=== PATIENT | female | born 1960 | race Caucasian/White ===

== ENCOUNTER 2023-04-21 10:16 | Outpatient (OUT) | payer MEDICARE, SELFPAY ==
[2023-04-21 10:43] LABS: Basophils Absolute Auto 0.1 10^3/uL (0.0-0.1); Basophils Percent Auto 0.7 % (0.2-2.0); Eosinophils Absolute Auto 0.1 10^3/uL (0.0-0.7); Hematocrit 35.8 % (36.0-48.0); Hemoglobin 10.8 g/dL (12.0-16.0); Immature Granulocytes Abs Auto 0.02 10^3/uL (0.00-0.03); Immature Granulocytes Pct Auto 0.3 % (0.0-0.5); Lymphocytes Absolute Auto 1.6 10^3/uL (1.2-3.8); Lymphocytes Percent Auto 22.3 % (20.5-60.0); Mean Corpuscular HGB Conc 30.2 g/dL (29.9-35.2); Mean Corpuscular Hemoglobin 28.1 pg (26.7-34.0); Mean Corpuscular Volume 93.2 fL (81.0-99.0); Mean Platelet Volume 10.6 fL (9.5-13.5); Monocytes Absolute Auto 0.6 10^3/uL (0.3-0.8); Monocytes Percent Auto 8.5 % (1.7-12.0); Neutrophils Absolute Auto 4.8 10^3/uL (1.4-6.5); Neutrophils Percent Auto 67.2 % (43.0-75.0); Platelet Count 268 10^3/uL (150-450); Red Blood Count 3.84 10^6/uL (4.20-5.40); White Blood Count 7.2 10^3/uL (4.0-11.0)
[2023-04-21 11:13] LABS: Anion Gap 14.4; BUN Creatinine Ratio 23.7; Calcium 9.3 mg/dL (8.5-10.1); Carbon Dioxide 24.1 mmol/L (21.0-32.0); Chloride 103 mmol/L (98-107); Estimated GFR (African America 50 (>=60); Estimated GFR (Non-African Ame 41 (>=60); Glucose 93 mg/dL (74-106); Potassium 4.5 mmol/L (3.5-5.1); Sodium 137 mmol/L (136-145); Uric Acid 7.7 mg/dL (2.6-6.0)
== END 2023-04-21 10:17 | disposition home or self-care (01) ==
LOC: LAB 10:21
PROVIDERS: PCP Internal Medicine; Visit Provider Internal Medicine
DX: Z79.899 Other long term (current) drug therapy (principal); I10 Essential (primary) hypertension; E55.9 Vitamin D deficiency, unspecified; M1A.0421 Idiopathic chronic gout, left hand, with tophus (tophi)
CPT/HCPCS: 36415; 80048; 82306; 84550; 85025

== ENCOUNTER 2023-08-04 10:08 | Outpatient (OUT) | payer MEDICARE, SELFPAY ==
--- OUTSIDE RECORDS SUMMARY | 2023-08-04 10:21 | XMS_ITS | CCD ---
Author Name Unknown Address [address] [place] [address] Organization [facility] Care Team Providers Care Resolution Analyst Name Role Phone LARRY, DR ALVES Consulting Unavailable LARRY, DR ALVES Primary Care Unavailable LARRY, DR ALVES Admitting Unavailable LARRY, DR ALVES Attending Unavailable LEVI, DR HEAVENLY Vasquez Consulting Unavailable LARRY, DR ALVES Primary Care Unavailable LARRY, DR ALVES Admitting Unavailable LARRY, DR ALVES Attending Unavailable LARRY, DR ALVES Consulting Unavailable Larry, Hilton Unavailable DO Hilton Sanchez Primary Care Provider GISSELL Palacio Emergency Provider Yovani Palacio Attending Unavailable Yovani Palacio Admitting Hilton Albarado Primary Care Unavailable MARY LOU DOUGLAS Attending Unavailable Medications Current Medications Medication Drug Class(es) Dates Sig (Normalized) Sig (Original) allopurinol 100 mg oral tablet (1 source) Xanthine Oxidase Inhibitor Start: 04-23-2023 take 1 tablet by mouth every twenty-four hours Allopurinol 100 MG 1 tablet Orally Once a day for 30 days Increase to 2 daily after 14 days Apr, Active colchicine 0.6 mg oral tablet (4 sources) Start: 04-23-2023 take 1 tablet by mouth every twenty-four hours Colchicine 0.6 MG 1 tablet Orally qd for 30 days Apr, Active Start: 09-09-2022 take 1 tablet by gómez th every twenty-four hours Colchicine 0.6 MG 1 tablet Orally daily for 30 days Aug, Active doxycycline hyclate 100 mg oral capsule (4 sources) Tetracycline-class Drug take 1 capsule by mouth every twelve hours Doxycycline Hyclate 100 MG 1 capsule Orally Twice a day for 14 days Active lisinopril 10 mg oral tablet (5 sources) Angiotensin Converting Enzyme Inhibitor Lisinopril 10 MG TAKE ONE TABLET BY MOUTH DAILY Orally Once a day for 90 days New dose for next refill Active take 1 tablet by mouth once ramón y Lisinopril 20 MG TAKE ONE TABLET BY MOUTH DAILY for 90 Active predniSONE 20 mg oral tablet (5 sources) take 1 tablet by mouth twice matthias ly Problems Problem Classification Problem Date Documented Date Episodic/Chronic Calculus of urinary tract (5 sources) Kidney stone; Translations: [Calculus of kidney] Episodic Coagulation and hemorrhagic disorders (4 sources) Thrombocytopenia, unspecified; Translations: [THROMBOCYTOPENIA UNSPECIFIED] Onset: 05-28-2021 Chronic Developmental disorders (5 sources) Mild intellectual disability; Translations: [Mild intellectual disabilities] Chronic Disorders of lipid metabolism (7 sources) Familial hypercholesterolemia ; Translations: [Pure hypercholesterolemia ] Onset: 05-04-2022 Chronic Essential hypertension (4 sources) Essential hypertension; Translations: [Essential (primary) hypertension] Chronic Gout and other crystal arthropathies (17 sources) Gouty tophus; 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, unspecified, with tophus (tophi)] Chronic Hypertension with complications and secondary hypertension (9 sources) Hypertensive chronic kidney disease with stage 1 through stage 4 chronic kidney disease, or unspecified chronic kidney disease; Translations: [Chronic kidney disease due to hypertension] Onset: 04-29-2022 Chronic Nutritional deficiencies (1 source) Vitamin D deficiency; Translations: [Vitamin D deficiency, unspecified] Chronic Other acquired deformities (5 sources) Thoracogenic scoliosis; Translations: [Thoracogenic scoliosis, thoracolumbar region] Chronic Other connective tissue disease (1 source) Other specified soft tissue disorders; Translations: [Other specified soft tissue disorders] Onset: 12-07-2022 Episodic Other ear and sense organ disorders (6 sources) Sensorineural hearing loss, bilateral; Translations: [Sensorineural hearing loss, bilateral] Chronic Other inflammatory condition of skin (5 sources) Plaque psoriasis; Translations: [Psoriasis vulgaris] Chronic Other nutritional; endocrine; and metabolic disorders (1 source) Hyperuricemia without signs of inflammatory arthritis and tophaceous disease Episodic Other screening for suspected conditions (not mental disorders or infectious disease) (1 source) Encounter for screening mammogram for malignant neoplasm of breast; Translations: [ENC SCR MAMMO MALIG NEOPLASM BREAST] Onset: 05-04-2022 Episodic Skin and subcutaneous tissue infections (6 sources) Paronychia of finger of right hand; Translations: [Cellulitis of right finger] Episodic Sprains and strains (1 source) Sprain of ankle; Translations: [Sprain of unspecified ligament of unspecified ankle, initial encounter] 12-07-2022 Episodic Unclassified (1 source) CHRN KIDNEY DISEASE STG 3 UNSP; Translations: [CHRN KIDNEY DISEASE STG 3 UNSP] Onset: 05-04-2022 Results Test Name Value Interpretation Reference Range Facil ity XR ankle LT min 3V*on 2022 XR ankle LT min 3V* [facility] [place] [address] [place] [address] XRay Report Signed Patient: Binta Eldridge MR#: [id number] 46 : 1960 Acct:[id number] Age/Sex: 62 / F ADM Date: 12/07/22 Loc: ER Room: Type: [facility] ER Attending Dr: Copies to: Yovani Palacio APRN Ordering Provider: Yovani Palacio APRN Date of Service: 12/07/22 XR/XR ankle LT min 3V*: Extremity Injury, Lower LEFT ANKLE - 3 views CLINICAL HISTORY: Left ankle pain status post sprain 2 days ago. COMPARISON: None FINDINGS: Diffuse soft tissue swelling is noted. Charcot type changes are seen involving the hindfoot. Remote injury lateral malleolus. No acute fracture is seen. XR/XR ankle LT min 3V* IMPRESSION: SOFT TISSUE SWELLING WITH CHARCOT TYPE CHANGES. NO DEFINITE ACUTE BONY PROCESS IS SEEN. Impression dictated by: Sabas Rocha Jr., D.OHaydee12/07/2022 5:45 PM Dictation Location: [place] [address] Transcribed By: [facility] 12/07/221744 Dictated By: Sabas Rocha Jr, DO 12/07/221742 Signed By: 12/07/221744 Normal [facility] CBC AUTO DIFFon 04-29-2022 BASO # 0.0 103/ul Normal 0.0-0.1 [facility] Comment on above: Performed By: #### C BC #### [facility] [address] [address] [address] Maribell Elkins Basophils/100 WBC (Bld) 0.6 % Normal 0.2-2.0 [facility] Comment on above: Performed By: #### C BC #### [facility] [address] [place] [address] Dr. Maribell Elkins EO # 0.1 103/ul Normal 0.0-0.7 [facility] Comment on above: Performed By: #### C BC #### [facility] [address] [place] [address] Dr. Maribell Elkins Eosinophils/100 WBC (Bld) 0.9 % Normal 0.9-7.0 [facility] Comment on above: Performed By: #### C BC #### [facility] [address] [place] [address] Dr. Maribell Elkins Erythrocyte distribution width (RBC) [Ratio] 12.2 % Normal 11.0-15.0 [facility] Comment on above: Performed By: #### C BC #### [facility] [address] [place] [address] Dr. Maribell Elkins Hematocrit (Bld) [Volume fraction] 42.4 % Normal 36.0-48.0 [facility] Comment on above: Performed By: #### C BC #### [facility] [address] [place] [address] Dr. Maribell Elkins Hemoglobin (Bld) [Mass/Vol] 14.0 g/dL Normal 12.0-16.0 [facility] Comment on above: Performed By: #### C BC #### [facility] [address] [place] [address] Dr. Maribell Elkins IG # 0.02 10e3/ul Normal 0.00-0.03 [facility] Comment on above: Performed By: #### C BC #### [facility] [address] [place] [address] Dr. Maribell Elkins IG % 0.3 % Normal 0.0-0.5 [facility] Comment on above: Performed By: #### C BC #### [facility] [address] [place] [address] Dr. Maribell Elkins LYMPH # 0.9 103/ul Critically low 1.2-3.8 [facility] Comment on above: Performed By: #### C BC #### [facility] [address] [place] [address] Dr. Maribell Elkins Lymphocytes/100 WBC (Bld) 13.5 % Critically low 20.5-60.0 [facility] Comment on above: Performed By: #### C BC #### [facility] [address] [place] [address] Dr. Maribell Elkins MANUAL DIFF REQ NO Normal [facility] Comment on above: Performed By: #### C BC #### [facility] [address] [place] [address] Dr. Maribell Elkins MCH (RBC) [Entitic mass] 32.0 pg Normal 26.7-34.0 [facility] Comment on above: Performed By: #### C BC #### [facility] [address] [place] [address] Dr. Maribell Elkins MCHC (RBC) [Mass/Vol] 33.0 g/dL Normal 29.9-35.2 [facility] Comment on above: Performed By: #### C BC #### [facility] [address] [place] [address] Dr. Maribell Elkins MCV (RBC) [Entitic vol] 97.0 fL Normal 81.0-99.0 [facility] Comment on above: Performed By: #### C BC #### [facility] [address] [place] [address] Dr. Maribell Elkins MONO # 0.7 103/ul Normal 0.3-0.8 [facility] Comment on above: Performed By: #### C BC #### [facility] [address] [place] [address] Dr. Maribell Elkins Monocytes/100 WBC (Bld) 10.2 % Normal 1.7-12.0 [facility] Comment on above: Performed By: #### C BC #### [facility] [address] [place] [address] Dr. Maribell Elkins NEUT # 5.1 103/ul Normal 1.4-6.5 [facility] Comment on above: Performed By: #### C BC #### [facility] [address] [place] [address] Dr. Maribell Elkins Neutrophils/100 WBC (Bld) 74.5 % Normal 43.0-75.0 [facility] Comment on above: Performed By: #### C BC #### [facility] [address] [place] [address] Dr. Maribell Elkins Platelet mean volume (Bld) [Entitic vol] 11.5 fL Normal 9.5-13.5 [facility] Comment on above: Performed By: #### C BC #### [facility] [address] [place] [address] Dr. Maribell Elkins PLT 204 103/ul Normal 150-450 [facility] Comment on above: Performed By: #### C BC #### [facility] [address] [place] [address] Dr. Maribell Elkins RBC 4.37 106/ul Normal 4.20-5.40 [facility] Comment on above: Performed By: #### C BC #### [facility] [address] [place] [address] Dr. Maribell Elkins WBC 6.9 103/ul Normal 4.0-11.0 [facility] Comment on above: Performed By: #### C BC #### [facility] [address] [place] [address] Dr. Maribell Elkins LIPID PROFILEon 04-29-2022 CHOL-HDL RATIO NORM SEE BELOW Normal [facility] Comment on above: Result Comment: 3.3 - 4.4 LOW RISK 4.4 - 7.1 AVERAGE RISK 7.1 - 11.0 MODERATE RISK >11.0 HIGH RISK Performed By: #### C MP, LIPID #### [facility] [address] [place] [address] Dr. Maribell Elkins Cholesterol [Mass/Vol] 280 mg/dL Critically high <=200 [facility] Comment on above: Performed By: #### C MP, LIPID #### [facility] [address] [place] [address] Dr. Maribell Elkins Cholesterol in HDL [Mass/Vol] 51 mg/dL Normal 40-60 [facility] Comment on above: Performed By: #### C MP, LIPID #### [facility] [address] [address] [address] Maribell Elkins Cholesterol in LDL [Mass/Vol] 160.4 mg/dL Normal [facility] Comment on above: Performed By: #### C MP, LIPID #### [facility] [address] [address] [address] Maribell Elkins Cholesterol.total/C holesterol in HDL [Mass ratio] 5.5 {ratio} Normal [facility] Comment on above: Performed By: #### C MP, LIPID #### [facility] [address] [address] [address] Maribell Elkins HDL NORMAL > or = 60 mg/dl - LOW CARDIOVASCULAR RISK <40 mg/dl - HIGH CARDIOVASCULAR RISK Normal [facility] Comment on above: Performed By: #### C MP, LIPID #### [facility] [address] [address] [address] Maribell Elkins LDL CALC NORMAL SEE BELOW Normal [facility] Comment on above: Result Comment: <100 mg/dl OPTIMAL 100 - 129 mg/dl NEAR OR ABOVE OPTIMAL 130 - 159 mg/dl BORDERLINE HIGH 160 - 189 mg/dl HIGH >190 mg/dl VERY HIGH Performed By: #### C MP, LIPID #### [facility] [address] [address] [address] Maribell Elkins Triglyceride [Mass/Vol] 343 mg/dL Critically high <=150 [facility] Comment on above: Performed By: #### C MP, LIPID #### [facility] [address] [place] [address] Dr. Maribell Elkins VLDL CALC 68.6 mg/dL Normal [facility] Comment on above: Performed By: #### C MP, LIPID #### [facility] [address] [place] [address] Dr. Maribell Elkins MG MAMM SCREEN KELLY W CADon 1 06-29-2021 MG MAMM SCREEN KELLY W CAD Patient: BINTA ELDRIDGE Exam Date: 04/29/2022 : 1960 Gender:F Ordering : DR HILTON SANCHEZ D.O. Admission #: [id number] Family : Order #: [id number] CLICK HERE TO VIEW EXAM RADIOLOGY REPORT PROCEDURE: MAMMOGRAM BILATERAL SCREENING DIGITAL WITH COMPUTER AIDED DETECTION COMPARISON: MG MAMM SCREEN 3D KELLY CAD, 04/16/2021. INDICATIONS: Screening for malignant neoplasm of breast Calculator Name NCI Breast Cancer Risk Assessment Tool 5 Year Breast Cancer Risk 1.70% Lifetime Breast Cancer Risk 7.70% Personal Breast Cancer No Personal Ovarian Cancer No Treatments None Family Cancers None LOCATION: [facility] BREAST COMPOSITION: Scattered areas fibroglandular density. FINDINGS: DIAGNOSTIC CATEGORY 1--NEGATIVE. NO CHANGE FROM COMPARISON ASSESSMENT. Limited 2D only exam. Large portions of breasts were not imaged due to inability to position the patient RIGHT BREAST: No significant suspicious finding. LEFT BREAST: No significant suspicious finding. RECOMMENDATIONS: ROUTINE MAMMOGRAM AND CLINICAL EVALUATION IN 12 MONTHS. PLEASE NOTE: A NORMAL MAMMOGRAM DOES NOT EXCLUDE THE POSSIBILITY OF BREAST CANCER. A CLINICALLY SUSPICIOUS PALPABLE LUMP SHOULD BE BIOPSIED. Dictated by: Heavenly Nelson MD on 04/29/2022 at 13:12 Approved by: Heavenly Nelson MD on 04/29/2022 at 13:13 Normal [facility] PROF 14(COMP METB)on 022 Albumin [Mass/Vol] 4.0 g/dL Normal 3.4-5.0 [facility] Comment on above: Performed By: #### C MP, LIPID #### [facility] [address] [place] [address] Dr. Maribell Elkins Albumin/Globulin [Mass ratio] 1.2 {ratio} Normal [facility] Comment on above: Performed By: #### C MP, LIPID #### [facility] [address] [place] [address] Dr. Maribell Elkins ALP [Catalytic activity/Vol] 76 U/L Normal 46-116 [facility] Comment on above: Performed By: #### C MP, LIPID #### [facility] [address] [place] [address] Dr. Maribell Elkins ALT [Catalytic activity/Vol] 37 U/L Normal 14-59 [facility] Comment on above: Performed By: #### C MP, LIPID #### [facility] [address] [address] [address] Maribell Elkins Anion gap [Moles/Vol] 9.1 mmol/L Normal [facility] Comment on above: Performed By: #### C MP, LIPID #### [facility] [address] [address] [address] Maribell Elkins AST [Catalytic activity/Vol] 20 U/L Normal 15-37 [facility] Comment on above: Performed By: #### C MP, LIPID #### [facility] [address] [address] [address] Maribell Elkins Bilirubin [Mass/Vol] 0.5 mg/dL Normal 0.2-1.0 [facility] Comment on above: Performed By: #### C MP, LIPID #### [facility] [address] [address] [address] Maribell Elkins Calcium [Mass/Vol] 9.1 mg/dL Normal 8.5-10.1 [facility] Comment on above: Performed By: #### C MP, LIPID #### [facility] [address] [address] [address] Maribell Elkins Chloride [Moles/Vol] 104 mmol/L Normal 98-107 [facility] Comment on above: Performed By: #### C MP, LIPID #### [facility] [address] [address] [address] Maribell Elkins CO2 [Moles/Vol] 27.6 mmol/L Normal 21.0-32.0 [facility] Comment on above: Performed By: #### C MP, LIPID #### [facility] [address] [place] [address] Dr. Maribell Elkins Creatinine [Mass/Vol] 1.62 mg/dL Critically high 0.55-1.02 [facility] Comment on above: Performed By: #### C MP, LIPID #### [facility] [address] [address] [address] Maribell Elkins EGFR-AF CHILEAN 39 mL/min/1.73m2 Critically low >=60 [facility] Comment on above: Performed By: #### C MP, LIPID #### [facility] [address] [address] [address] Maribell Elkins EGFR-NON AF CHILEAN 32 mL/min/1.73m2 Critically low >=60 [facility] Comment on above: Performed By: #### C MP, LIPID #### [facility] [address] [address] [address] Maribell Elkins Globulin (S) [Mass/Vol] 3.4 g/dL Normal [facility] Comment on above: Performed By: #### C MP, LIPID #### [facility] [address] [address] [address] Maribell Elkins Glucose [Mass/Vol] 108 mg/dL Critically high 74-106 [facility] Comment on above: Performed By: #### C MP, LIPID #### [facility] [address] [address] [address] Maribell Elkins Potassium [Moles/Vol] 4.7 mmol/L Normal 3.5-5.1 [facility] Comment on above: Performed By: #### C MP, LIPID #### [facility] [address] [address] [address] Maribell Elkins Protein [Mass/Vol] 7.4 g/dL Normal 6.4-8.2 [facility] Comment on above: Performed By: #### C MP, LIPID #### [facility] [address] [address] [address] Maribell Elkins Sodium [Moles/Vol] 136 mmol/L Normal 136-145 [facility] Comment on above: Performed By: #### C MP, LIPID #### [facility] [address] [address] [address] Maribell Elkins Urea nitrogen [Mass/Vol] 24.0 mg/dL Critically high 7.0-18.0 [facility] Comment on above: Performed By: #### C MP, LIPID #### [facility] [address] [address] [address] Maribell Elkins Urea nitrogen/Creatinine [Mass ratio] 14.8 mg/mg Normal [facility] Comment on above: Performed By: #### C MP, LIPID #### [facility] [address] [address] [address] Maribell Elkins CBC AUTO DIFFon 05-28-2021 BASO # 0.1 103/ul Normal 0.0-0.1 [facility] Comment on above: Performed By: #### C BC #### [facility] [address] [place] [address] Dr. Maribell Elkins Basophils/100 WBC (Bld) 0.9 % Normal 0.2-2.0 [facility] Comment on above: Performed By: #### C BC #### [facility] [address] [place] [address] Dr. Maribell Elkins EO # 0.1 103/ul Normal 0.0-0.7 [facility] Comment on above: Performed By: #### C BC #### [facility] [address] [place] [address] Dr. Maribell Elkins Eosinophils/100 WBC (Bld) 1.6 % Normal 0.9-7.0 [facility] Comment on above: Performed By: #### C BC #### [facility] [address] [place] [address] Dr. Maribell Elkins Erythrocyte distribution width (RBC) [Ratio] 12.9 % Normal 11.0-15.0 [facility] Comment on above: Performed By: #### C BC #### [facility] [address] [place] [address] Dr. Maribell Elkins Hematocrit (Bld) [Volume fraction] 41.9 % Normal 36.0-48.0 [facility] Comment on above: Performed By: #### C BC #### [facility] [address] [place] [address] Dr. Maribell Elkins Hemoglobin (Bld) [Mass/Vol] 13.7 g/dL Normal 12.0-16.0 [facility] Comment on above: Performed By: #### C BC #### [facility] [address] [place] [address] Dr. Maribell Elkins IG # 0.01 10e3/ul Normal 0.00-0.03 [facility] Comment on above: Performed By: #### C BC #### [facility] [address] [place] [address] Dr. Maribell Elkins IG % 0.2 % Normal 0.0-0.5 [facility] Comment on above: Performed By: #### C BC #### [facility] [address] [place] [address] Dr. Maribell Elkins LYMPH # 2.0 103/ul Normal 1.2-3.8 [facility] Comment on above: Performed By: #### C BC #### [facility] [address] [place] [address] Dr. Maribell Elkins Lymphocytes/100 WBC (Bld) 35.9 % Normal 20.5-60.0 [facility] Comment on above: Performed By: #### C BC #### [facility] [address] [place] [address] Dr. Maribell Elkins MANUAL DIFF REQ NO Normal [facility] Comment on above: Performed By: #### C BC #### [facility] [address] [place] [address] Dr. Maribell Elkins MCH (RBC) [Entitic mass] 31.2 pg Normal 26.7-34.0 [facility] Comment on above: Performed By: #### C BC #### [facility] [address] [place] [address] Dr. Maribell Elkins MCHC (RBC) [Mass/Vol] 32.7 g/dL Normal 29.9-35.2 [facility] Comment on above: Performed By: #### C BC #### [facility] [address] [place] [address] Dr. Maribell lEkins MCV (RBC) [Entitic vol] 95.4 fL Normal 81.0-99.0 [facility] Comment on above: Performed By: #### C BC #### [facility] [address] [place] [address] Dr. Maribell Elkins MONO # 0.6 103/ul Normal 0.3-0.8 [facility] Comment on above: Performed By: #### C BC #### [facility] [address] [place] [address] Dr. Maribell Elkins Monocytes/100 WBC (Bld) 11.0 % Normal 1.7-12.0 [facility] Comment on above: Performed By: #### C BC #### [facility] [address] [place] [address] Dr. Maribell Elkins NEUT # 2.8 103/ul Normal 1.4-6.5 [facility] Comment on above: Performed By: #### C BC #### [facility] [address] [place] [address] Dr. Maribell Elkins Neutrophils/100 WBC (Bld) 50.4 % Normal 43.0-75.0 [facility] Comment on above: Performed By: #### C BC #### [facility] [address] [place] [address] Dr. Maribell Elkins Platelet mean volume (Bld) [Entitic vol] 10.8 fL Normal 9.5-13.5 [facility] Comment on above: Performed By: #### C BC #### [facility] [address] [place] [address] Dr. Maribell Elkins PLT 187 103/ul Normal 150-450 [facility] Comment on above: Performed By: #### C BC #### [facility] [address] [place] [address] Dr. Maribell Elkins RBC 4.39 106/ul Normal 4.20-5.40 [facility] Comment on above: Performed By: #### C BC #### [facility] [address] [place] [address] Dr. Maribell Elkins WBC 5.6 103/ul Normal 4.0-11.0 [facility] Comment on above: Performed By: #### C BC #### [facility] [address] [place], [place] [id number] Dr. Maribell Elkins Vital Signs Date Time Vital Sign Value Performing Clinician Corry jeronimo 12-07-2022 17:05-0400 Body height 165.1 cm DO Hilton Sanchez Work Phone: [facility] 12-07-2022 17:05-0400 Body temperature 97.6 [degF] DO Hilton Ball Work Phone: [facility] 12-07-2022 17:05-0400 Body weight 48.98 kg DO Hilton Ball Work Phone: [facility] 12-07-2022 17:05-0400 Diastolic blood pressure 77 mm[Hg] DO Hilton Ball Work Phone: [facility] 12-07-2022 17:05-0400 Heart rate 106 /min DO Hilton Ball Work Phone: [facility] 12-07-2022 17:05-0400 Respiratory rate 16 /min DO Hilton Ball Work Phone: [facility] 12-07-2022 17:05-0400 SaO2% (BldA) [Mass fraction] 96 % DO Hilton Ball Work Phone: [facility] 12-07-2022 17:05-0400 Systolic blood pressure 120 mm[Hg] DO Hilton Ball Work Phone: [facility] Encounters Encounter Date Encounter Type Care Provider Facility Start: 06-02-2023 End: 06-02-2023 ambulatory MARY OLU DOUGLAS Not Available Start: 04-21-2023 End: 04-21-2023 ambulatory Hilton Sanchez Other [employer] Other Start: 04-21-2023 Telephone encounter [facility] Start: 12-07-2022 End: 12-07-2022 Emergency department patient visit Yovani Palacio Facility:[facility] Start: 12-07-2022 End: 12-07-2022 Emergency department patient visit DO Hilton Ball Work Phone: [facility] Work Phone: Start: 10-14-2022 End: 10-14-2022 ambulatory Hilton Sanchez Other [employer] Other Start: 10-14-2022 Telephone encounter Hilton [facility] Start: 09-10-2022 End: 09-10-2022 ambulatory Hilton Sanchez Other [employer] Other Start: 09-10-2022 [facility] encounter [facility] Start: 09-08-2022 End: 09-08-2022 ambulatory Hilton Sanchez Other [employer] Other Start: 09-08-2022 [facility]phone encounter [facility] Start: 08-10-2022 End: 08-10-2022 ambulatory Hilton Sanchez Other [employer] Other Start: 08-10-2022 Telephone encounter [facility] Start: 04-29-2022 End: 04-30-[address] HILTON SANCHEZ Facility:[facility] Start: 05-28-2021 End: 05-29-[address] HILTON SANCHEZ Facility:[facility] Procedures Date Procedure Procedure Detail Performing Clinician Start: 12-07-2022 X-ray of left ankle DO Hilton Sanchez Work Phone: Plan of Treatment Date Care Activity Detail Author Patient Education Ankle Sprain (DC) [facility] Work Phone: Patient referral [facility] Work Phone: Immunizations Immunization Date Immunization Notes Care Provider Naty ha 04-15-2022 influenza virus vaccine, split virus (incl. purified surface antigen) Hilton Larry Other [employer] Other 04-09-2021 influenza virus vaccine, split virus (incl. purified surface antigen) Hilton Sanchez Other [employer] Other 03-13-2020 influenza virus vaccine, split virus (incl. purified surface antigen) Hilton Sanchez Other [employer] Other 03-10-2018 influenza virus vaccine, split virus (incl. purified surface antigen) Hilton Larry Other [employer] Other 03-11-2017 tetanus and diphther ia toxoids, adsorbed, preservative free, for adult use (5 Lf of tetanus toxoid and 2 Lf of diphtheria toxoid) Hilton Sanchez Other [employer] Other 02-28-2016 tetanus and diphther ia toxoids, adsorbed, preservative free, for adult use (5 Lf of tetanus toxoid and 2 Lf of diphtheria toxoid) Hilton Sanchez Other [employer] Other 04-06-2014 tetanus and diphther ia toxoids, adsorbed, preservative free, for adult use (5 Lf of tetanus toxoid and 2 Lf of diphtheria toxoid) Hilton Sanchez Other [employer] Other Payers Date Payer Category Payer Self-pay 1960 Medicare [id number] 1960 Unknown [id number] 1960 Unknown [id number] 1960 Unknown [id number] Unknown [id number] Social History Date Type Detail Facility Sex Assigned At [employer] Other [facility]: [facility] Start: 1960 Sex Assigned At Female F [facility] Evaluation note 04-21-2023 Note Date & Type Note Facility 04-21-2023 Evaluation note Encounter Date Diagnosis Assessment Notes Apr, Hyperuricemia (ICD-10 - E79.0) [facility] [facility] Other Evaluation note 09-10-2022 Note Date & Type Note Facility 09-10-2022 Evaluation note Encounter Date Diagnosis Assessment Notes Aug, Cellulitis of finger of left hand (ICD-10 - L03.012) Aug, Acute idiopathic gout of left hand (ICD-10 - M10.042) [facility] [facility] Other Evaluation note 08-10-2022 Note Date & Type Note Facility 08-10-2022 Evaluation note Encounter Date Diagnosis Assessment Notes Jul, Acute idiopathic gout of right hand (ICD-10 - M10.041) [facility] [facility] Other Evaluation note Note Date & Type Note Facility Evaluation note No Information [facility] Other Evaluation note Note Date & Type Note Facility Evaluation note [facility]: History general Narrative - Reported Note Date & Type Note Facility History general Narrative - Reported Type Medical History Paronychia of finger of right melchor nd Medical History Tophaceous gout Medical History Hyperlipidemia type II Medical History Nephrolithiasis Medical History Hypertensive renal d isease, stage 1 through stage 4 or unspecified chronic kidney disease Medical History Thoracogenic scoliosis, thoracol umbar region Medical History Mild intellectual disabilities Medical History Plaque psoriasis Medical History Sensorineural hearing loss (SNHL ) of both ears [facility] Other History general Narrative - Reported Note Date & Type Note Facility History general Narrative - Reported Type Medical History Paronychia of finger of right melchor nd Medical History Tophaceous gout Medical History Hyperlipidemia type II Medical History Nephrolithiasis Medical History Hypertensive renal d isease, stage 1 through stage 4 or unspecified chronic kidney disease Medical History Thoracogenic scoliosis, thoracol umbar region Medical History Mild intellectual disabilities Medical History Plaque psoriasis Medical History Sensorineural hearing loss (SNHL ) of both ears Surgical History No know Surgical history [employer] Other Summary Purpose Family History No Family History Records FoundNo Family History Records FoundNo Family History Records Found Advance Directives No Advanced Directives Records Found Advance Directive Response Recorded Date/ Time Advance Directives Yes December 07 5:41pm Chief Complaint and Reason for Visit Chief Complaint L ankle injury Additional Source Comments INFORMATION SOURCE (unrecogn ized section and content) DATE CREATED AUTHOR 05/04/2022 [facility] DATE CREATED AUTHOR AUTHOR'S ORGANIZ ATION 12/23/2022 [facility] DATE CREATED AUTHOR AUTHOR'S ORGANIZ ATION 06/04/2023 [facility] EPIC REASON FOR VISIT (unrecogniz ed section and content) messagefingerNo Informationu pdateLab results Care Teams (unrecognized sec tion and content) Team Status: Active Member Role Status Dates Hilton Sanchez , Primary Care Provider Active Team Status: Inactive Member Role Status Dates Hilton Sanchez , Primary Care Provider Active Yovani Palacio APRN Emergency Provider Active Goals (unrecognized section and content) Goals may be documented in a n alternate section FOR RECORDS PERTAINING TO PATIENTS WHO ARE OR HAVE BEEN ENROLLED IN A CHEMICAL DEPENDENCY/SUBSTANCEABUSE PROGRAM, SOME INFORMATION MAY BE OMITTED. This clinical summary was aggregated from multiple sources. Caution should be exercised in using it in the provision of clinical care. This summary normalizes information from multiple sources, and as a consequence, information in this document may materially change the coding, format and clinical context of patient data. In addition, data may be omitted in some cases. CLINICAL DECISIONS SHOULD BE BASED ON THE PRIMARY CLINICAL RECORDS. [facility] [employer] [facility]. provides no warranty or guarantee of the accuracy or completeness of information in this document.
[2023-08-04 10:52] LABS: Basophils Absolute Auto 0.1 10^3/uL (0.0-0.1); Eosinophils Absolute Auto 0.2 10^3/uL (0.0-0.7); Eosinophils Percent Auto 2.9 % (0.9-7.0); Hematocrit 33.6 % (36.0-48.0); Hemoglobin 10.6 g/dL (12.0-16.0); Immature Granulocytes Abs Auto 0.02 10^3/uL (0.00-0.03); Immature Granulocytes Pct Auto 0.3 % (0.0-0.5); Lymphocytes Absolute Auto 1.1 10^3/uL (1.2-3.8); Mean Corpuscular HGB Conc 31.5 g/dL (29.9-35.2); Mean Corpuscular Hemoglobin 29.9 pg (26.7-34.0); Mean Corpuscular Volume 94.9 fL (81.0-99.0); Monocytes Absolute Auto 0.5 10^3/uL (0.3-0.8); Monocytes Percent Auto 5.9 % (1.7-12.0); Neutrophils Absolute Auto 5.9 10^3/uL (1.4-6.5); Neutrophils Percent Auto 75.9 % (43.0-75.0); Platelet Count 341 10^3/uL (150-450); Red Blood Count 3.54 10^6/uL (4.20-5.40); White Blood Count 7.8 10^3/uL (4.0-11.0)
[2023-08-04 11:22] LABS: Uric Acid 3.7 mg/dL (2.6-6.0)
[2023-08-04 11:25] LABS: Percent Iron Saturation 18.1 %
== END 2023-08-04 10:09 | disposition home or self-care (01) ==
LOC: LAB 10:11
PROVIDERS: PCP Internal Medicine; Visit Provider Internal Medicine
DX: D64.9 Anemia, unspecified (principal); M10.9 Gout, unspecified
CPT/HCPCS: 36415; 82607; 82728; 82746; 83540; 83550; 84550; 85025

== ENCOUNTER 2024-04-05 09:58 | Outpatient (OUT) | payer MEDICARE, SELFPAY ==
--- OUTSIDE RECORDS SUMMARY | 2024-04-05 10:04 | XMS_ITS | CCD ---
Author Organization [facility] Care Team Providers Care Director [employer]otive Name Role Phone DR HILTON SANCHEZ Consulting Unavailable LARRY, DR ALVES Primary Care Unavailable LARRY, DR ALVES Admitting Unavailable LARRY, DR ALVES Attending Unavailable LEVI, DR HEAVENLY Vasquez Consulting Unavailable LARRY, DR ALVES Primary Care Unavailable LARRY, DR ALVES Admitting Unavailable LARRY, DR ALVES Attending Unavailable LARRY, DR ALVES Consulting Unavailable Larry, Hilton Unavailable DO Hilton Sanchez Primary Care Provider GISSELL Palacio Emergency Provider Yovani Palacio Admitting Unavailable Yovani Palacio Attending Unavailable Larry, Hilton Primary Care Unavailable Larry, Hilton Admitting Unavailable Larry, Hilton Primary Care Unavailable Larry, Hilton Attending Unavailable MARY LOU DOUGLAS Attending Unavailable MARY LOU DOUGLAS Attending Unavailable MARY LOU DOUGLAS Attending Unavailable MARY LOU DOUGLAS Attending Unavailable Medications Current Medications Medication Drug Class(es) Dates Sig (Normalized) Sig (Original) allopurinol 200 mg oral tablet (3 sources) Xanthine Oxidase Inhibitor Start: 10-19-2023 take 200 mg by mouth once daily Allopurinol Active 200 MG PO Daily October 19, 2023 1:44pm Start: 10-19-2023 End: 10-19-2023 take 100 mg by mouth once daily Allopurinol Discontinu ed 100 MG PO Daily October 19, 2023 12:00am October 19, 2023 1:45pm Start: 04-23-2023 take 1 tablet by gómez th every twenty-four hours Allopurinol 100 MG 1 tablet Orally Once a day for 30 days Increase to 2 daily after 14 days Apr, Active aspirin 81 mg delayed release oral tablet (1 source) Platelet Aggregation Inhibitor, Nonsteroidal Anti-inflammatory Drug Start: 10-20-2023 take 1 tablet by mouth once daily Aspirin (Adult Aspirin Regimen) 81 mg tablet,delayed release (DR/EC) Active 81 MG PO Daily October 20, 2023 12:00am atorvastatin 80 mg oral tablet (3 sources) HMG-CoA Reductase Inhibitor Start: 10-20-2023 End: 12-21-2023 take 80 mg by mouth once daily Atorvastatin Active 80 MG PO Daily December 21, 2023 8:39am colchicine 0.6 mg oral tablet (6 sources) Start: 10-19-2023 End: 12-21-2023 take 0.6 mg by mouth once daily Colchicine Active 0.6 MG PO Daily December 21, 2023 8:39am Start: 04-23-2023 take 1 tablet by gómez th every twenty-four hours Colchicine 0.6 MG 1 tablet Orally qd for 30 days Apr, Active Start: 09-09-2022 take 1 tablet by gómez th every twenty-four hours Colchicine 0.6 MG 1 tablet Orally daily for 30 days Aug, Active doxycycline hyclate 100 mg oral capsule (5 sources) Tetracycline-class Drug Start: 10-20-2023 take 100 mg by mouth twice daily Doxycycline Hyclate Active 100 MG PO Twice daily 09 04October 20, 2023 12:00am take 1 capsule by mo [facility] every twelve hours Doxycycline Hyclate 100 MG 1 capsule Ora lly Twice a day for 14 days Active folic acid 1 mg oral tablet (3 sources) Start: 09-06-2023 End: 09-07-2023 take 1 tablet by mouth once daily Folic Acid Active 0 .ROUTE .COMPLEX September 07, 2023 4:06pm TAKE 1 TABLET BY MOUTH DAILY Start: 08-04-2023 End: 09-06-2023 take 1 mg by mouth once daily Folic Acid Discontinued 1 MG PO Daily August 04, 2023 1:00am September 06, 2023 2:08pm lisinopril 10 mg oral tablet (6 sources) Angiotensin Converting Enzyme Inhibitor Start: 10-19-2023 take 10 mg by mouth once daily Lisinopril Active 10 MG PO Daily October 19, 2023 12:00am Lisinopril 10 MG TAKE ONE TABLET BY MOUTH DAILY Orally Once a day for 90 days New dose for next refill Active take 1 tablet by mouth once ramón y Lisinopril 20 MG TAKE ONE TABLET BY MOUTH DAILY for 90 Active mupirocin 0.02 mg/mg topical ointment (1 source) RNA Synthetase Inhibitor Antibacterial Start: 10-20-2023 Mupirocin Active 1 APPLIC TOPICAL Twice daily 11 04October 20, 2023 12:00am polysaccharide iron complex 150 mg oral capsule (1 source) Start: 08-04-2023 Polysaccharide Iron Complex (Ferrex 150) 150 mg iron capsule Active 150 MG PO every other day August 04, 2023 1:00am predniSONE 20 mg oral tablet (5 sources) take 1 tablet by mouth twice daily Problems Active Problems Problem Classification Problem Date Documented Date Episodic/Chronic Calculus of urinary tract (5 sources) Kidney stone; Translations: [Calculus of kidney] Episodic Chronic ulcer of skin (3 sources) Non-pressure chronic ulcer of skin of other sites limited to breakdown of skin; Translations: [Skin ulcer] Onset: 11-03-2023 10-20-2023 Chronic Coagulation and hemorrhagic disorders (4 sources) Thrombocytopenia, unspecified; Translations: [THROMBOCYTOPENIA UNSPECIFIED] Onset: 05-28-2021 Chronic Developmental disorders (5 sources) Mild intellectual disability; Translations: [Mild intellectual disabilities] Chronic Disorders of lipid metabolism (8 sources) Familial hypercholesterolemia; Translations: [Pure hypercholesterolemia] Onset: 05-04-2022 10-20-2023 Chronic Essential hypertension (7 sources) Essential hypertension; Translations: [Essential (primary) hypertension] Onset: 11-03-2023 10-18-2023 Chronic Gout and other crystal arthropathies (17 [...] Translations: [Thoracogenic scoliosis, thoracolumbar region] Chronic Other circulatory disease (1 source) Other disorder of circulatory system; Translations: [Other disorder of circulatory system] Onset: 11-03-2023 Episodic Other connective tissue disease (1 source) H/O: gout; Translations: [Personal history of other diseases of the musculoskeletal system and connective tissue] 10-18-2023 Episodic Other connective tissue disease (1 source) Personal history of other diseases of the musculoskeletal system and connective tissue; Translations: [Personal history of other endocrine, metabolic, and immunity disorders] 03-22-2024 Episodic Other ear and sense organ disorders (6 sources) Sensorineural hearing loss, bilateral; Translations: [Sensorineural hearing loss, bilateral] Chronic Other hereditary and degenerative nervous system conditions (1 source) Impaired cognition; Translations: [Mild cognitive impairment, so stated] 10-18-2023 Chronic Other hereditary and degenerative nervous system conditions (1 source) Mild cognitive impairment, so stated; Translations: [Mild cognitive impairment, so stated] 03-22-2024 Chronic Other inflammatory condition of skin (5 sources) Plaque psoriasis; Translations: [Psoriasis vulgaris] Chronic Other nutritional; endocrine; and metabolic disorders (1 source) Hyperuricemia without signs of inflammatory arthritis and tophaceous disease Episodic Other screening for suspected conditions (not mental disorders or infectious disease) (3 sources) Encounter for screening mammogram for malignant neoplasm of breast; Translations: [Patient encounter status] Onset: 05-04-2022 03-20-2024 Episodic Peripheral and visceral atherosclerosis (4 sources) Peripheral vascular disease, unspecified; Translations: [Peripheral arterial disease] Onset: 11-03-2023 10-20-2023 Chronic Skin and subcutaneous tissue infections (6 sources) Paronychia of finger of right hand; Translations: [Cellulitis of right finger] Episodic Sprains and strains (2 sources) Sprain of ankle; Translations: [Sprain of unspecified ligament of unspecified ankle, initial encounter] 12-07-2022 Episodic Unclassified (1 source) CHRN KIDNEY DISEASE STG 3 UNSP; Translations: [CHRN KIDNEY DISEASE STG 3 UNSP] Onset: 05-04-2022 Past or Other Problems Problem Classification Problem Date Documented Da te Episodic/Chronic Other connective tissue disease (1 source) Other specified soft tissue disorders; Translations: [Other specified soft tissue disorders] Onset: 12-07-2022 Episodic Results Test Name Value Interpretation Reference Range Facil ity US arterial pvr rest Monty US arterial pvr rest [facility] [place] [address] Ultrasound Report Signed Patient: Binta Eldridge MR#: [id number] 46 : 1960 Acct:[id number] Age/Sex: 63 / F ADM Date: 11/03/23 Loc: UL Room: Type: [facility] CLI Attending Dr: Hilton Sanchez DO Ordering Provider: Hilton Sanchez DO Date of Service: 11/03/23 US/US arterial pvr rest LE: I73.9 - Peripheral vascular disease, unspecified Copies to: Hilton Sanchez DO LOWER EXTREMITY SEGMENTAL ARTERIAL DOPSCAN (PVR) INDICATION: Peripheral arterial occlusive disease with left foot pain PROCEDURE: Right arm blood pressure is 108 , left is 110 . Pressures throughout the right leg are 139 at the low thigh, 131 at the calf, 118 at the ankle using the posterior tibial artery, and 123 at the ankle using the dorsalis pedis artery with ankle-brachial index of 1.07 1.12 . Pressures throughout the left leg are 149 at the low thigh, 149 at the calf and 154 at the ankle using the posterior tibial artery, and 155 at the ankle using the dorsalis pedis artery with ankle-brachial index of 1.40 1.41 . Wave forms by plethysmography are normal. US/US arterial pvr rest LE IMPRESSION: NO HEMODYNAMICALLY SIGNIFICANT PERIPHERAL VASCULAR OCCLUSIVE DISEASE AT REST IN EITHER LOWER EXTREMITY. Impression dictated by: Paul Antoine M.D.11/04/2023 3:11 PM Dictation Location: [place] [address] Tech: Magda Whitley Transcribed By: SLADE 11/04/23 1511 Dictated By: Paul Antoine MD 11/04/23 1509 Signed By: 11/04/23 1511 Normal [facility] Complete Blood Count Auto Di ffon 11-03-2023 Basophils (Bld) [#/Vol] 0.1 10*3/uL Normal 0.0-0.2 [facility] Comment on above: Result Comment: PERF ORMED BY: [place] [address] PATHOLOGIST TECHNICAL ILLUSTRATOR JENNIFER MURILLO M.D. Performed By: #### C MP, CBC #### [address] Basophils/100 WBC (Bld) 0.9 % Normal . [facility] Comment on above: Performed By: #### C MP, CBC #### [place] [address] [place] Eosinophils (Bld) [#/Vol] 0.1 10*3/uL Normal 0.0-0.45 [facility] Comment on above: Performed By: #### C MP, CBC #### [place] [address] [place] Eosinophils/100 WBC (Bld) 1.3 % Normal . [facility] Comment on above: Performed By: #### C MP, CBC #### [address] Erythrocyte distribution width (RBC) [Ratio] 15.3 % Normal 11.9-15.3 [facility] Comment on above: Performed By: #### C MP, CBC #### [address] Hematocrit (Bld) [Volume fraction] 36.6 % Normal 34.0-46.4 [facility] Comment on above: Performed By: #### C MP, CBC #### [address] Hemoglobin (Bld) [Mass/Vol] 11.9 g/dL Normal 11.8-15.4 [facility] Comment on above: Performed By: #### C MP, CBC #### [place] [address] [place] Lymphocytes (Bld) [#/Vol] 0.9 10*3/uL Low 1.00-4.8 [facility] Comment on above: Performed By: #### C MP, CBC #### [place] [address] [place] Lymphocytes/100 WBC (Bld) 15.3 % Normal . [facility] Comment on above: Performed By: #### C MP, CBC #### [address] MCH (RBC) [Entitic mass] 30.9 pg Normal 24.7-34.3 [facility] Comment on above: Performed By: #### C MP, CBC #### [address] MCV (RBC) [Entitic vol] 95.2 fL Normal 80-100 [facility] Comment on above: Performed By: #### C MP, CBC #### [address] Mean Corpuscular HGB Conc 32.5 g/dL Normal 32.0-35.0 [facility] Comment on above: Performed By: #### C MP, CBC #### [address] Monocytes (Bld) [#/Vol] 0.5 10*3/uL Normal 0.0-0.8 [facility] Comment on above: Performed By: #### C MP, CBC #### [address] Monocytes/100 WBC (Bld) 7.9 % Normal . [facility] Comment on above: Performed By: #### C MP, CBC #### [address] Neutrophils (Bld) [#/Vol] 4.5 10*3/uL Normal 1.8-7.7 [facility] Comment on above: Performed By: #### C MP, CBC #### [address] Neutrophils/100 WBC (Bld) 74.6 % Normal . [facility] Comment on above: Performed By: #### C MP, CBC #### [address] NRBC% 0.0 /100{WBC} Normal 0-0.5 [facility] Comment on above: Performed By: #### C MP, CBC #### [address] Platelet mean volume (Bld) [Entitic vol] 9.5 fL Normal 6.3-10.7 [facility] Comment on above: Performed By: #### C MP, CBC #### [address] Platelets (Bld) [#/Vol] 238 10*3/uL Normal 150-450 [facility] Comment on above: Performed By: #### C MP, CBC #### [address] RBC (Bld) [#/Vol] 3.84 10*6/uL Normal 3.60-5.00 [facility] Comment on above: Performed By: #### C MP, CBC #### [address] WBC (Bld) [#/Vol] 6.0 10*3/uL Normal 3.8-11.6 [facility] Comment on above: Performed By: #### C MP, CBC #### [address] Comprehensive Metabolic Pane matty 11-03-2023 Albumin [Mass/Vol] 4.4 g/dL Normal 3.5-5.7 [facility] Comment on above: Performed By: #### C MP, CBC #### [address] Albumin/Globulin [Mass ratio] 1.6 {ratio} Normal [facility] Comment on above: Performed By: #### C MP, CBC #### [address] ALP [Catalytic activity/Vol] 133 U/L High 34-104 [facility] Comment on above: Result Comment: PERF ORMED BY: [place] [address] PATHOLOGIST TECHNICAL ILLUSTRATOR JENNIFER MURILLO M.D. Performed By: #### C MP, CBC #### [address] ALT [Catalytic activity/Vol] 21 U/L Normal 7-52 [facility] Comment on above: Performed By: #### C MP, CBC #### [address] Anion gap [Moles/Vol] 4.8 mmol/L Low 6.0-15.0 [facility] Comment on above: Performed By: #### C MP, CBC #### [address] AST [Catalytic activity/Vol] 27 U/L Normal 13-39 [facility] Comment on above: Performed By: #### C MP, CBC #### [address] Bilirubin [Mass/Vol] 0.4 mg/dL Normal 0.3-1.0 [facility] Comment on above: Performed By: #### C MP, CBC #### [address] Calcium [Mass/Vol] 10.0 mg/dL Normal 8.6-10.3 [facility] Comment on above: Performed By: #### C MP, CBC #### [address] Chloride [Moles/Vol] 109 mmol/L High 98-107 [facility] Comment on above: Performed By: #### C MP, CBC #### [address] CO2 [Moles/Vol] 26.9 mmol/L Normal 21.0-31.0 [facility] Comment on above: Performed By: #### C MP, CBC #### [address] Creatinine [Mass/Vol] 1.36 mg/dL High 0.60-1.20 [facility] Comment on above: Performed By: #### C MP, CBC #### [place] [address] [place] GFR/1.73 sq M.predicted MDRD (S/P/Bld) [Vol rate/Area] 43.498 mL/min/{1.73_m2} Normal [facility] Comment on above: Performed By: #### C MP, CBC #### [address] Globulin (S) [Mass/Vol] 2.8 g/dL Normal [facility] Comment on above: Performed By: #### C MP, CBC #### [address] Glucose [Mass/Vol] 97 mg/dL Normal 70-100 [facility] Comment on above: Result Comment: [place] Glucose Reference Range is dependent on time and content of last meal. Glucose of more than 200 mg/dL in a nonstressed, ambulatory subject supports the diagnosis of Diabetes Mellitus. ADA recommended reference range Performed By: #### C MP, CBC #### [address] Potassium [Moles/Vol] 4.7 mmol/L Normal 3.5-5.1 [facility] Comment on above: Performed By: #### C MP, CBC #### [address] Protein [Mass/Vol] 7.2 g/dL Normal 6.4-8.9 [facility] Comment on above: Performed By: #### C MP, CBC #### [address] Sodium [Moles/Vol] 136 mmol/L Normal 136-145 [facility] Comment on above: Performed By: #### C MP, CBC #### [address] Urea nitrogen [Mass/Vol] 35 mg/dL High 7-25 [facility] Comment on above: Performed By: #### C MP, CBC #### [address] XR ankle LT min 3V*on 2022 XR ankle LT min 3V* [facility] Main [place] [address] [place] [address] XRay Report Signed Patient: Binta Eldridge MR#: [id number] 46 : 1960 Acct:[id number] Age/Sex: 62 / F ADM Date: 12/07/22 Loc: ER Room: Type: [facility] ER Attending Dr: Copies to: Yovani Palacio [...] SEEN. Impression dictated by: Sabas Rocha Jr., CheloOHaydee12/07/2022 5:45 PM Dictation Location: [place] [address] Transcribed By: [facility] 12/07/221744 Dictated By: Sabas Rocha Jr, DO 12/07/221742 Signed By: 12/07/221744 Normal [facility] CBC AUTO DIFFon 04-29-2022 BASO # 0.0 103/ul Normal 0.0-0.1 [facility] Comment on above: Performed By: #### C BC #### [facility] [address] [place] [address] Dr. Maribell Elkins Basophils/100 WBC (Bld) 0.6 % Normal 0.2-2.0 [facility] Comment on above: Performed By: #### C BC #### [facility] [address] [place] [address] [address] Maribell Elkins EO # 0.1 103/ul Normal 0.0-0.7 [facility] Comment on above: Performed By: #### C BC #### [facility] [address] [address] [address] Maribell Elkins Eosinophils/100 WBC (Bld) 0.9 % Normal 0.9-7.0 [facility] Comment on above: Performed By: #### C BC #### [facility] [address] [address] [address] Maribell Elkins Erythrocyte distribution width (RBC) [Ratio] 12.2 % Normal 11.0-15.0 [facility] Comment on above: Performed By: #### C BC #### [facility] [address] [place] [address] Dr. Maribell Elkins Hematocrit (Bld) [Volume fraction] 42.4 % Normal 36.0-48.0 [facility] Comment on above: Performed By: #### C BC #### [facility] [address] [place] [address] Dr. Maribell Elkins Hemoglobin (Bld) [Mass/Vol] 14.0 g/dL Normal 12.0-16.0 [facility] Comment on above: Performed By: #### C BC #### [facility] [address] [place] [address] Dr. Maribell Elkins IG # 0.02 10e3/ul Normal 0.00-0.03 [facility] Comment on above: Performed By: #### C BC #### [facility] [address] [place] [address] Dr. Maribell Elkins IG % 0.3 % Normal 0.0-0.5 [facility] Comment on above: Performed By: #### C BC #### [facility] [address] [place] [address] Dr. Maribell Elkins LYMPH # 0.9 103/ul Critically low 1.2-3.8 [facility] Comment on above: Performed By: #### C BC #### [facility] [address] [place] [address] Dr. Maribell Elkins Lymphocytes/100 WBC (Bld) 13.5 % Critically low 20.5-60.0 [facility] Comment on above: Performed By: #### C BC #### [facility] [address] [place] [address] Dr. Maribell Elkins MANUAL DIFF REQ NO Normal [facility] Comment on above: Performed By: #### C BC #### [facility] [address] [place] [address] Dr. Maribell Elkins MCH (RBC) [Entitic mass] 32.0 pg Normal 26.7-34.0 [facility] Comment on above: Performed By: #### C BC #### [facility] [address] [place] [address] Dr. Maribell Elkins MCHC (RBC) [Mass/Vol] 33.0 g/dL Normal 29.9-35.2 [facility] Comment on above: Performed By: #### C BC #### [facility] [address] [place] [address] Dr. Maribell Elkins MCV (RBC) [Entitic vol] 97.0 fL Normal 81.0-99.0 [facility] Comment on above: Performed By: #### C BC #### [facility] [address] [place] [address] Dr. Maribell Elkins MONO # 0.7 103/ul Normal 0.3-0.8 [facility] Comment on above: Performed By: #### C BC #### [facility] [address] [place] [address] Dr. Maribell Elkins Monocytes/100 WBC (Bld) 10.2 % Normal 1.7-12.0 [facility] Comment on above: Performed By: #### C BC #### [facility] [address] [place] [address] Dr. Maribell Elkins NEUT # 5.1 103/ul Normal 1.4-6.5 [facility] Comment on above: Performed By: #### C BC #### [facility] [address] [place] [address] Dr. Maribell Elkins Neutrophils/100 WBC (Bld) 74.5 % Normal 43.0-75.0 [facility] Comment on above: Performed By: #### C BC #### [facility] [address] [place] [address] Dr. Maribell Elkins Platelet mean volume (Bld) [Entitic vol] 11.5 fL Normal 9.5-13.5 [facility] Comment on above: Performed By: #### C BC #### [facility] [address] [place] [address] Dr. Maribell Elkins PLT 204 103/ul Normal 150-450 [facility] Comment on above: Performed By: #### C BC #### [facility] [address] [address] [address] Maribell Elkins RBC 4.37 106/ul Normal 4.20-5.40 [facility] Comment on above: Performed By: #### C BC #### [facility] [address] [place] [address] [address] Maribell Elkins WBC 6.9 103/ul Normal 4.0-11.0 [facility] Comment on above: Performed By: #### C BC #### [facility] [address] [address] [address] Maribell Elkins LIPID PROFILEon 04-29-2022 CHOL-HDL RATIO NORM SEE BELOW Normal [facility] Comment on above: Result Comment: 3.3 - 4.4 LOW RISK 4.4 - 7.1 AVERAGE RISK 7.1 - 11.0 MODERATE RISK >11.0 HIGH RISK Performed By: #### C MP, LIPID #### [facility] [address] [place] [address] Dr. Maribell Elkins Cholesterol [Mass/Vol] 280 mg/dL Critically high <=200 [facility] Comment on above: Performed By: #### C MP, LIPID #### [facility] [address] [place] [address] Dr. Maribell Elkins Cholesterol in HDL [Mass/Vol] 51 mg/dL Normal 40-60 [facility] Comment on above: Performed By: #### C MP, LIPID #### [facility] [address] [place] [address] Dr. Maribell Elkins Cholesterol in LDL [Mass/Vol] 160.4 mg/dL Normal [facility] Comment on above: Performed By: #### C MP, LIPID #### [facility] [address] [place] [address] Dr. Maribell Elkins Cholesterol.total/C holesterol in HDL [Mass ratio] 5.5 {ratio} Normal [facility] Comment on above: Performed By: #### C MP, LIPID #### [facility] [address] [place] [address] [address] Maribell Elkins HDL NORMAL > or = 60 mg/dl - LO W CARDIOVASCULAR RISK <40 mg/dl - HIGH CARDIOVASCULAR RISK Normal [facility] Comment on above: Performed By: #### C MP, LIPID #### [facility] [address] [place], [place] [address] Dr. Maribell Elkins LDL CALC NORMAL SEE BELOW Normal [facility] Comment on above: Result Comment: <100 mg/dl OPTIMAL 100 - 129 mg/dl NEAR OR ABOVE OPTIMAL 130 - 159 mg/dl BORDERLINE HIGH 160 - 189 mg/dl HIGH >190 mg/dl VERY HIGH Performed By: #### C MP, LIPID #### [facility] [address] [place] [address] [address] Maribell Elkins Triglyceride [Mass/Vol] 343 mg/dL Critically high <=150 [facility] Comment on above: Performed By: #### C MP, LIPID #### [facility] [address] [address] [address] Maribell Elkins VLDL CALC 68.6 mg/dL Normal [facility] Comment on above: Performed By: #### C MP, LIPID #### [facility] [address] [address] [address] Maribell Elkins MG MAMM SCREEN KELLY W CADon 1 06-29-2021 MG MAMM SCREEN KELLY W CAD Patient: BINTA ELDRIDGE Exam Date: 04/29/2022 : 1960 Gender:F Ordering : DR HILTON SANCHEZ D.O. Admission #: [id number] Family : Order #: [id number] CLICK HERE TO VIEW EXAM RADIOLOGY REPORT [...] Treatments None Family Cancers None LOCATION: [facility] BREAST COMPOSITION: Scattered areas fibroglandular density. FINDINGS: [...] Nelson MD on 04/29/2022 at 13:13 Normal [facility] PROF 14(COMP METB)on 022 Albumin [Mass/Vol] 4.0 g/dL Normal 3.4-5.0 [facility] Comment on above: Performed By: #### C MP, LIPID #### [facility] [address] [place] [address] Dr. Maribell Elkins Albumin/Globulin [Mass ratio] 1.2 {ratio} Normal [facility] Comment on above: Performed By: #### C MP, LIPID #### [facility] [address] [place] [address] Dr. Maribell Elkins ALP [Catalytic activity/Vol] 76 U/L Normal 46-116 [facility] Comment on above: Performed By: #### C MP, LIPID #### [facility] [address] [place] [address] Dr. Maribell Elkins ALT [Catalytic activity/Vol] 37 U/L Normal 14-59 [facility] Comment on above: Performed By: #### C MP, LIPID #### [facility] [address] [place] [address] Dr. Maribell Elkins Anion gap [Moles/Vol] 9.1 mmol/L Normal [facility] Comment on above: Performed By: #### C MP, LIPID #### [facility] [address] [place] [address] Dr. Maribell Elkins AST [Catalytic activity/Vol] 20 U/L Normal 15-37 [facility] Comment on above: Performed By: #### C MP, LIPID #### [facility] [address] [place] [address] Dr. Maribell Elkins Bilirubin [Mass/Vol] 0.5 mg/dL Normal 0.2-1.0 [facility] Comment on above: Performed By: #### C MP, LIPID #### [facility] [address] [address] [address] Maribell Elkins Calcium [Mass/Vol] 9.1 mg/dL Normal 8.5-10.1 [facility] Comment on above: Performed By: #### C MP, LIPID #### [facility] [address] [address] [address] Maribell Elkins Chloride [Moles/Vol] 104 mmol/L Normal 98-107 [facility] Comment on above: Performed By: #### C MP, LIPID #### [facility] [address] [address] [address] Maribell Elkins CO2 [Moles/Vol] 27.6 mmol/L Normal 21.0-32.0 [facility] Comment on above: Performed By: #### C MP, LIPID #### [facility] [address] [place] [address] Dr. Maribell Elkins Creatinine [Mass/Vol] 1.62 mg/dL Critically high 0.55-1.02 [facility] Comment on above: Performed By: #### C MP, LIPID #### [facility] [address] [place] [address] Dr. Maribell Elkins EGFR-AF SYRIAN 39 mL/min/1.73m2 Critically low >=60 [facility] Comment on above: Performed By: #### C MP, LIPID #### [facility] [address] [place] [address] Dr. Maribell Elkins EGFR-NON AF SYRIAN 32 mL/min/1.73m2 Critically low >=60 [facility] Comment on above: Performed By: #### C MP, LIPID #### [facility] [address] [place] [address] Dr. Maribell Elkins Globulin (S) [Mass/Vol] 3.4 g/dL Normal [facility] Comment on above: Performed By: #### C MP, LIPID #### [facility] [address] [place] [address] Dr. Maribell Elkins Glucose [Mass/Vol] 108 mg/dL Critically high 74-106 [facility] Comment on above: Performed By: #### C MP, LIPID #### [facility] [address] [place] [address] Dr. Maribell Elkins Potassium [Moles/Vol] 4.7 mmol/L Normal 3.5-5.1 [facility] Comment on above: Performed By: #### C MP, LIPID #### [facility] [address] [place] [address] Dr. Maribell Elkins Protein [Mass/Vol] 7.4 g/dL Normal 6.4-8.2 [facility] Comment on above: Performed By: #### C MP, LIPID #### [facility] [address] [place] [address] Dr. Maribell Elkins Sodium [Moles/Vol] 136 mmol/L Normal 136-145 [facility] Comment on above: Performed By: #### C MP, LIPID #### [facility] [address] [place] [address] Dr. Maribell Elkins Urea nitrogen [Mass/Vol] 24.0 mg/dL Critically high 7.0-18.0 [facility] Comment on above: Performed By: #### C MP, LIPID #### [facility] [address] [place] [address] Dr. Maribell Elkins Urea nitrogen/Creatinine [Mass ratio] 14.8 mg/mg Normal [facility] Comment on above: Performed By: #### C MP, LIPID #### [facility] [address] [place] [address] Dr. Maribell Elkins CBC AUTO DIFFon 05-28-2021 BASO # 0.1 103/ul Normal 0.0-0.1 [facility] Comment on above: Performed By: #### C BC #### [facility] [address] [place] [address] Dr. Maribell Elkins Basophils/100 WBC (Bld) 0.9 % Normal 0.2-2.0 [facility] Comment on above: Performed By: #### C BC #### [facility] [address] [place] [address] Dr. Maribell Elkins EO # 0.1 103/ul Normal 0.0-0.7 [facility] Comment on above: Performed By: #### C BC #### [facility] [address] [place] [address] Dr. Maribell Elkins Eosinophils/100 WBC (Bld) 1.6 % Normal 0.9-7.0 [facility] Comment on above: Performed By: #### C BC #### [facility] [address] [place] [address] Dr. Maribell Elkins Erythrocyte distribution width (RBC) [Ratio] 12.9 % Normal 11.0-15.0 [facility] Comment on above: Performed By: #### C BC #### [facility] [address] [place] [address] Dr. Maribell Elkins Hematocrit (Bld) [Volume fraction] 41.9 % Normal 36.0-48.0 [facility] Comment on above: Performed By: #### C BC #### [facility] [address] [place] [address] Dr. Maribell Elkins Hemoglobin (Bld) [Mass/Vol] 13.7 g/dL Normal 12.0-16.0 [facility] Comment on above: Performed By: #### C BC #### [facility] [address] [place] [address] Dr. Maribell Elkins IG # 0.01 10e3/ul Normal 0.00-0.03 [facility] Comment on above: Performed By: #### C BC #### [facility] [address] [place] [address] Dr. Maribell Elkins IG % 0.2 % Normal 0.0-0.5 [facility] Comment on above: Performed By: #### C BC #### [facility] [address] [place] [address] Dr. Maribell Elkins LYMPH # 2.0 103/ul Normal 1.2-3.8 [facility] Comment on above: Performed By: #### C BC #### [facility] [address] [place] [address] Dr. Maribell Elkins Lymphocytes/100 WBC (Bld) 35.9 % Normal 20.5-60.0 [facility] Comment on above: Performed By: #### C BC #### [facility] [address] [place] [address] Dr. Maribell Elkins MANUAL DIFF REQ NO Normal [facility] Comment on above: Performed By: #### C BC #### [facility] [address] [place] [address] Dr. Maribell Elkins MCH (RBC) [Entitic mass] 31.2 pg Normal 26.7-34.0 [facility] Comment on above: Performed By: #### C BC #### [facility] [address] [place] [address] Dr. Maribell Elkins MCHC (RBC) [Mass/Vol] 32.7 g/dL Normal 29.9-35.2 [facility] Comment on above: Performed By: #### C BC #### [facility] [address] [place] [address] Dr. Maribell Elkins MCV (RBC) [Entitic vol] 95.4 fL Normal 81.0-99.0 [facility] Comment on above: Performed By: #### C BC #### [facility] [address] [place] [address] Dr. Maribell Elkins MONO # 0.6 103/ul Normal 0.3-0.8 [facility] Comment on above: Performed By: #### C BC #### [facility] [address] [place] [address] Dr. Maribell Elkins Monocytes/100 WBC (Bld) 11.0 % Normal 1.7-12.0 [facility] Comment on above: Performed By: #### C BC #### [facility] [address] [place] [address] Dr. Maribell Elkins NEUT # 2.8 103/ul Normal 1.4-6.5 [facility] Comment on above: Performed By: #### C BC #### [facility] [address] [place] [address] Dr. Maribell Elkins Neutrophils/100 WBC (Bld) 50.4 % Normal 43.0-75.0 [facility] Comment on above: Performed By: #### C BC #### [facility] [address] [address] [address] Maribell Elkins Platelet mean volume (Bld) [Entitic vol] 10.8 fL Normal 9.5-13.5 [facility] Comment on above: Performed By: #### C BC #### [facility] [address] [address] [address] Maribell Elkins PLT 187 103/ul Normal 150-450 [facility] Comment on above: Performed By: #### C BC #### [facility] [address] [address] [address] Maribell Elkins RBC 4.39 106/ul Normal 4.20-5.40 [facility] Comment on above: Performed By: #### C BC #### [facility] [address] [address] [address] Maribell Elkins WBC 5.6 103/ul Normal 4.0-11.0 [facility] Comment on above: Performed By: #### C BC #### [facility] [address] [address] [address] Maribell Elkins Vital Signs Date Time Vital Sign Value Performing Clinician Anati lity 03-22-2024 [id number] Body height 132.08 cm [facility] 03-22-2024 13:33-0400 Body mass index (BMI) [Ratio] 24.5 kg/m2 [facility] 03-22-2024 13:33-0400 Body weight 42.75 kg [facility] 03-22-2024 13:33-0400 Diastolic blood pressure 75 mm[Hg] [facility] 03-22-2024 13:33-0400 Heart rate 92 /min [facility] 03-22-2024 13:33-0400 Respiratory rate 16 /min [facility] 03-22-2024 13:33-0400 Systolic blood pressure 123 mm[Hg] [facility] 12-07-2022 17:05-0400 Body height 165.1 cm DO Hilton Sanchez Work Phone: [facility] 12-07-2022 17:05-0400 Body temperature 97.6 [degF] DO Hilton Sanchez Work Phone: [facility] 12-07-2022 17:05-0400 Body weight 48.98 kg DO Hilton Sanchez Work Phone: [facility] 12-07-2022 17:05-0400 Diastolic blood pressure 77 mm[Hg] DO Hilton Sanchez Work Phone: [facility] 12-07-2022 17:05-0400 Heart rate 106 /min DO Hilton Sanchez Work Phone: [facility] 12-07-2022 17:05-0400 Respiratory rate 16 /min DO Hilton Sanchez Work Phone: [facility] 12-07-2022 17:05-0400 SaO2% (BldA) [Mass fraction] 96 % DO Hilton Sanchez Work Phone: [facility] 12-07-2022 17:05-0400 Systolic blood pressure 120 mm[Hg] DO Hilton Sanchez Work Phone: [facility] Encounters Encounter Date Encounter Type Care Provider Facility Start: 03-22-2024 End: 03-22-2024 ambulatory [facility] Work Phone: Start: 03-22-2024 End: 03-22-2024 Patient encounter procedure [facility] Physician [facility] Work Phone: Start: 03-20-2024 Patient encounter procedure [facility] Start: 01-05-2024 End: 01-05-2024 ambulatory MARY LOU DOUGLAS Not Available Start: 11-03-2023 End: 11-03-2023 ambulatory Hilton Sanchez Facility:[facility] Start: 10-27-2023 End: 10-27-2023 ambulatory MARY LOU DOUGLAS Not Available Start: 08-18-2023 End: 08-18-2023 ambulatory MARY LOU DOUGLAS Not Available Start: 06-02-2023 End: 06-02-2023 ambulatory MARY LOU DOUGLAS Not Available Start: 04-21-2023 End: 04-21-2023 ambulatory Hilton Sanchez Other [facility] Other Start: 04-21-2023 Telephone encounter Hilton Sanchez [facility] Start: 12-07-2022 End: 12-07-2022 Emergency department patient visit Yovani Palacio Facility:[facility] Start: 12-07-2022 End: 12-07-2022 Emergency department patient visit DO Hilton Sanchez Work Phone: [facility] Work Phone: Start: 10-14-2022 End: 10-14-2022 ambulatory Hilton Sanchez Other [facility] Other Start: 10-14-2022 Telephone encounter Hilton Sanchez [facility] Start: 09-10-2022 End: 09-10-2022 ambulatory Hilton Sanchez Other [facility] Other Start: 09-10-2022 Telephone encounter Hilton Sanchez [facility] Start: 09-08-2022 End: 09-08-2022 ambulatory Hilton Sanchez Other [facility] Other Start: 09-08-2022 Telephone encounter Hilton Sanchez [facility] Start: 08-10-2022 End: 08-10-2022 ambulatory Hilton Sanchez Other [facility] Other Start: 08-10-2022 Telephone encounter Hilton Larry [facility] Start: 04-29-2022 End: 04-30-[address] HILTON SANCHEZ Facility:[facility] Start: 05-28-2021 End: 05-29-[address] HILTON SANCHEZ Facility:[facility] Procedures Date Procedure Procedure Detail Performing Clinician Start: 12-07-2022 X-ray of left ankle DO Hilton Ball Work Phone: Plan of Treatment Date Care Activity Detail Author Patient Education Ankle Sprain (DC) [facility] Work Phone: Patient referral [facility] Work Phone: Immunizations Immunization Date Immunization Notes Care Provider Naty ha 04-15-2022 influenza virus vaccine, split virus (incl. purified surface antigen) Hilton Sanchez Other [employer] Other 04-15-2022 influenza virus vaccine, unspecified formulation [facility] 04-09-2021 influenza virus vaccine, split virus (incl. purified surface antigen) Hilton Sanchez Other [employer] Other 04-09-2021 influenza virus vaccine, unspecified formulation [facility] 03-13-2020 influenza virus vaccine, split virus (incl. purified surface antigen) Hilton Sanchez Other [employer] Other 03-13-2020 influenza virus vaccine, unspecified formulation [facility] 03-10-2018 influenza virus vaccine, split virus (incl. purified surface antigen) Hilton Sanchze Other [employer] Other 03-10-2018 influenza virus vaccine, unspecified formulation [facility] 03-11-2017 tetanus and diphther ia toxoids, adsorbed, preservative free, for adult use (5 Lf of tetanus toxoid and 2 Lf of diphtheria toxoid) Hilton Sanchez Other [facility] 02-28-2016 tetanus and diphther ia toxoids, adsorbed, preservative free, for adult use (5 Lf of tetanus toxoid and 2 Lf of diphtheria toxoid) Hilotn Sanchez Other [facility] 04-06-2014 tetanus and diphther ia toxoids, adsorbed, preservative free, for adult use (5 Lf of tetanus toxoid and 2 Lf of diphtheria toxoid) Hilton Sanchez Other [facility] Payers Date Payer Category Payer Unknown [id number] 2023 Medicare [id number] 2022 Self-pay 1960 Medicare [id number] 1960 Unknown [id number] 2.16.84 [id number] 1960 Unknown [id number] 2.16.84 [id number] 1960 Unknown [id number] 2.16.84 [id number] 1960 Unknown [id number] 2.16.84 [id number] 1960 Unknown [id number] 2.16.84 [id number] 1960 Unknown [id number] [id number] Unknown [id number] 2.16.8 [id number] Unknown [id number] 2.16.8 [id number] Social History Date Type Detail Facility Sex Assigned At [facility] [employer] [facility] Other Start: 12-07-2022 End: 10-20-2023 Tobacco smoking status NHIS Never smoked tobacco (finding) [facility] Start: 1960 Sex Assigned At Female [facility] Evaluation note 04-21-2023 Note Date & Type Note Facility 04-21-2023 Evaluation note Encounter Date Diagnosis Assessment Notes Apr, Hyperuricemia (ICD-10 - E79.0) [facility] [employer] Other Evaluation note 09-10-2022 Note Date & Type Note Facility 09-10-2022 Evaluation note Encounter Date Diagnosis Assessment Notes Aug, Cellulitis of finger of left hand (ICD-10 - L03.012) Aug, Acute idiopathic gout of left hand (ICD-10 - M10.042) [facility] [employer] Other Evaluation note 08-10-2022 Note Date & Type Note Facility 08-10-2022 Evaluation note Encounter Date Diagnosis Assessment Notes Jul, Acute idiopathic gout of right hand (ICD-10 - M10.041) [employer] Other Evaluation note Note Date & Type Note Facility Evaluation note No Information [employer] Other Evaluation note Note Date & Type Note Facility Evaluation note No assessment information availa ble [facility] Work Phone: Evaluation note Note Date & Type Note Facility Evaluation note Diagnosis Onset Date Hx of gout acute Hypertension acute MCI (mild cognitive impairment) acute Medicare annual wellness visit, subsequent acute Peripheral artery disease ac [place] Scalp ulceration acute Screening mammogram for breast cancer acute [facility] Work Phone: History general Narrative - Reported [...] hearing loss (SNHL ) of both ears [employer] Other History general Narrative - Reported Note [...] ears Surgical History No know Surgical history [facility] Other Summary Purpose Family History No Family History Records FoundNo Family History Records FoundNo Family History Records Found Advance Directives Advance Directive Response Recorded Date/ Time Advance Directives Yes December 07 5:41pm Chief Complaint and Reason for Visit Chief Complaint L ankle injury Chief Complaint 5 month follow up Reason for Visit Hx of gout Hypertension MCI (mild cognitive impairment) Medicare annual wellness visit, subsequent Peripheral artery disease Scalp ulceration Screening mammogram for breast cancer Additional Source Comments INFORMATION SOURCE (unrecogn ized section and content) DATE CREATED AUTHOR 05/04/2022 [facility] DATE CREATED AUTHOR AUTHOR'S ORGANIZ ATION 11/05/2023 [facility] DATE CREATED AUTHOR AUTHOR'S ORGANIZ ATION 01/09/2024 [facility] EPIC REASON FOR VISIT (unrecogniz ed section and content) messagefingerNo Informationu pdateLab results Care Teams (unrecognized sec tion and content) Team Status: Active Member Role Status Dates Hilton Sanchez , Primary Care Provider Active Team Status: Inactive Member Role Status Dates Hilton Sanchez , Primary Care Provider Active Yovani Palacio APRN Emergency Provider Active Team Status: Inactive Member Role Status Dates Hilton Sanchez DO Primary Care Provide r, Attending Provider Active Start: March 22, 2024 End: March 22, 2024 Goals (unrecognized section and content) Goals may [...] BE BASED ON THE PRIMARY CLINICAL RECORDS. [facility]. provides no warranty or guarantee of the accuracy or completeness of information in this document.
--- NOTE | 2024-04-05 10:05 | MM_ITS ---
Patient Name: BINTA ELDRIDGE MR#: [id number] : 1960 Exam Date: 04/05/2024 Ordering Doctor: DR Hilton Juarez D.O. RADIOLOGY REPORT PROCEDURE: MM SCREENING MAMMO BI COMPARISON: MG MAMM SCREEN KELLY W CAD, 04/29/2022. INDICATIONS: Screening Calculator Name NCI Breast Cancer Risk Assessment Tool 5 Year Breast Cancer Risk 1.80% Lifetime Breast Cancer Risk 7.20% Personal Breast Cancer No Personal Ovarian Cancer No Treatments None Family Cancers None LOCATION: [facility] BREAST COMPOSITION: There are scattered areas of fibroglandular density. FINDINGS: DIAGNOSTIC CATEGORY 1--NEGATIVE. NO CHANGE FROM COMPARISON ASSESSMENT. Scattered benign-appearing calcifications are present. Limited non tomographic exam. Difficulty position patient was suboptimal visualization RIGHT BREAST: No significant suspicious finding. LEFT BREAST: No significant suspicious finding. RECOMMENDATIONS: ROUTINE MAMMOGRAM AND CLINICAL EVALUATION IN 12 MONTHS. PLEASE NOTE: A NORMAL MAMMOGRAM DOES NOT EXCLUDE THE POSSIBILITY OF BREAST CANCER. A CLINICALLY SUSPICIOUS PALPABLE LUMP SHOULD BE BIOPSIED. Dictated by: Leonides Nelson MD on 04/05/2024 at 13:37 Approved by: Leonides Nelson MD on 04/05/2024 at 13:38
== END 2024-04-05 09:59 | disposition home or self-care (01) ==
PROVIDERS: PCP Internal Medicine; Visit Provider Internal Medicine
DX: Z12.31 Encounter for screening mammogram for malignant neoplasm of breast (principal)
CPT/HCPCS: 77067

== ENCOUNTER 2024-10-19 07:04 | Outpatient (OUT) | payer MEDICARE, SELFPAY ==
[2024-10-19 08:22] LABS: Basophils Percent Auto 0.3 % (0.2-2.0); Eosinophils Absolute Auto 0.1 10^3/uL (0.0-0.7); Eosinophils Percent Auto 1.1 % (0.9-7.0); Hematocrit 30.1 % (36.0-48.0); Hemoglobin 9.4 g/dL (12.0-16.0); Immature Granulocytes Abs Auto 0.03 10^3/uL (0.00-0.03); Immature Granulocytes Pct Auto 0.3 % (0.0-0.5); Lymphocytes Absolute Auto 1.2 10^3/uL (1.2-3.8); Lymphocytes Percent Auto 13.2 % (20.5-60.0); Mean Corpuscular HGB Conc 31.2 g/dL (29.9-35.2); Mean Corpuscular Hemoglobin 31.1 pg (26.7-34.0); Mean Corpuscular Volume 99.7 fL (81.0-99.0); Mean Platelet Volume 11.9 fL (9.5-13.5); Monocytes Absolute Auto 0.5 10^3/uL (0.3-0.8); Monocytes Percent Auto 5.9 % (1.7-12.0); Neutrophils Absolute Auto 7.3 10^3/uL (1.4-6.5); Neutrophils Percent Auto 79.2 % (43.0-75.0); Platelet Count 289 10^3/uL (150-450); Red Blood Count 3.02 10^6/uL (4.20-5.40); Red Cell Distribution Width 14.9 % (11.0-15.0); White Blood Count 9.2 10^3/uL (4.0-11.0)
[2024-10-19 08:29] LABS: Alanine Aminotransferase 26 U/L (14-59); Albumin Globulin Ratio 0.8; Alkaline Phosphatase 173 U/L (46-116); Anion Gap 14.2; Aspartate Amino Transferase 27 U/L (15-37); BUN Creatinine Ratio 21.8; Bilirubin Total 0.4 mg/dL (0.2-1.0); Calcium 9.2 mg/dL (8.5-10.1); Carbon Dioxide 25.7 mmol/L (21.0-32.0); Chloride 105 mmol/L (98-107); Estimated GFR (African America 45 (>=60 mL/min/1.73m^2); Estimated GFR (Non-African Ame 37 (>=60 mL/min/1.73m^2); Globulin 3.9 g/dL; Glucose 138 mg/dL (74-106); Potassium 3.9 mmol/L (3.5-5.1); Sodium 141 mmol/L (136-145); Thyroid Stimulating Hormone 2.161 uIU/mL (0.358-3.740); Total Protein 6.9 g/dL (6.4-8.2)
== END 2024-10-19 07:05 | disposition home or self-care (01) ==
LOC: LAB 07:07
PROVIDERS: PCP Internal Medicine; Visit Provider Internal Medicine
DX: R00.0 Tachycardia, unspecified (principal); E78.00 Pure hypercholesterolemia, unspecified; I10 Essential (primary) hypertension; R06.00 Dyspnea, unspecified; R53.83 Other fatigue
CPT/HCPCS: 36415; 80053; 84443; 85025

== ENCOUNTER 2025-04-25 09:25 | Outpatient (OUT) | payer MEDICARE, SELFPAY ==
--- OUTSIDE RECORDS SUMMARY | 2023-04-09 06:00 | XMS_ITS | Continuity of Care Document ---
Author Organization [facility] Address [address] [place] [address] Phone Care Team Providers Care Director Property Name Role Phone Noel Ferreira Unavailable Unavailable Procedures Procedure Date Admin influenza virus vac FLU VAC NO PRSV 4 KONG 3 YRS+ IMMUNIZATION ADMIN FLU VAC NO PRSV 4 KONG 3 YRS+ Admin influenza virus vac FLU VAC NO PRSV 4 KONG 3 YRS+ Admin influenza virus vac IMMUNIZATION ADMIN FLU VAC NO PRSV 4 KONG 3 YRS+ IMMUNIZATION ADMIN FLU VAC NO PRSV 4 KONG 3 YRS+ FLU VACCINE, 3 YRS & >, IM OFFICE/OUTPATIENT VISIT, EST Flu (Fluzone) FLU VACCINE, 3 YRS & >, IM OFFICE/OUTPATIENT VISIT, EST Admin influenza virus vac Regular Flu Admin influenza virus vac Advance Directives Directive Yes / No Effective Date File Name No Information Encounters Encounter Description Practice Location Reason(s) For Visit Diagnoses Date Provider Providers Copied on Encounter [facility], [address], [place], [id number], [place] tel:[phone] [facility] No Information Corinne Miranda. [address] [place] [address], [id number], [place]. tel:[phone] [facility], [address], [place], [id number], [place] tel:[phone] [facility] No Information Corinne Miranda. [address], [place], [id number], [place]. tel:[phone] [facility], [address], [place], [id number], [place] tel:[phone] [facility] No Information Corinne Miranda. [address], [place], [id number], [place]. tel:[phone] OFFICE/OUTPAT IENT VISIT, [facility], [address], [place], [id number], [place] tel:[phone] [employer] No Information Corinne Miranda. [address], [place], [id number], [place]. tel:[phone] OFFICE/OUTPAT IENT VISIT, [facility], [address], [place], [id number], [place] tel:[phone] [employer] Influenza Vaccine Corinne Miranda. [address], [place], [id number], [place]. tel:[phone] [facility], [address], [place], [id number], [place] tel:[phone] [employer] No Information Corinne Miranda. [address], [place], [id number], [place]. tel:[phone] [facility], [address], [place], [id number], [place] tel:[phone] Flu No Information Corinne Miranda. [address], [place], [id number], [place]. tel:[phone] Family History Family Member Type Diagnosis Age At Onset No Information Immunizations Vaccine Date Status Comments Flulaval/ Fluarix administered Source: Ne w Immunization Record Influenza virus vaccine, injectable, quadrivalent, split virus, preservative free, 3 years or older Fluarix, Flulaval or Fluzone Quad administered Source: New Immuniza tion Record Flu (split) (3 yrs or older) administered Note: Flu vis given. ; Source: New Immunization Record Flu (split) (3 yrs or older) administered Note: vis given ; Source: New Immunization Record Flu (split) (3 yrs or older) administered Source: New Immunization Record Payers Payer name Insurance type Covered republican ID Authoriza tion(s) Medicare PPS MB [id number] Medicare PPS MB [id number] Medicare PPS MB [id number] Social History Type Description Quantity Date Captured Comments Alcohol Use Details Unknown Caffeine Use Details Unknown Tobacco Use Status No Information Smoking Status No Information Sex Female Sexual Orientation Straight or heterosexual Gender Identity Female Chief Complaint And Reason For Visit No Information Reason For Referral Reason For Referral No Information Plan Of Treatment Date Type Action Status Goal Zoster vaccine. Due on due Goal Colonoscopy. Due on due Goal Sigmoidoscopy. Due on due Goal FOBT. Due on due Goal CT-Colonography. Due on due Goal FIT-DNA. Due on due Goal FIT. Due on due Goal Lipid panel. Due on 023 due Goal Influenza Vaccine. Due on Oc due Goal PRAPARE ASSESSMENT. Due on O due Goal Hep A. Due on du e Goal Td vaccine. Due on 23 due Goal Pap/HPV testing. Due on due Goal HPV. Due on due Goal Tdap. Due on due Goal Hepatitis C screening. Due o n due Goal Hep A. Due on du e Goal Mammogram. Due on 3 due Goal Unhealthy drug use screening . Due on due Goal Zoster vaccine (). Due on due Goal Depression screening. Due on due Goal Tdap Vaccine. Due on 2022 due Goal Influenza Vaccine. Due on Oc due Goal Colonoscopy. Due on 015 due Goal Depression screening. Due on due Goal FOBT. Due on due Goal Mammogram. Due on 5 due Goal Pap/HPV testing. Due on due Goal Sigmoidoscopy. Due on due Goal Td vaccine. Due on 15 due Goal Tdap. Due on due Goal Influenza Vaccine. Due on Oc due History Of Present Illness Encounter Date Complaint History Of Prese nt Illness No Information Functional Status Date Functional Assessmen t No Information Instructions Date Instruction Additional Infor mation No Information Assessments Type Assessment Date No Information Patient Care Teams Name Effective Dates (start - stop) Status Members No Information
--- OUTSIDE RECORDS SUMMARY | 2025-04-11 09:38 | XMS_ITS | Continuity of Care Document ---
Author Organization [facility] Address [address] [place] [address] Phone Care Team Providers Care Bessemer Converter Blower Name Role Phone Hilton Juarez DO Primary Care Provider [phone] Hilton Juarez DO Attending Provider Care Teams Patient Care Team Team Status: Active Member Role/Relationship Status Dates Hilton Juarez DO Primary Care Provider Active Patient Care Team Team Status: Inactive Member Role/Relationship Status Dates Hilton Juarez DO Primary Care Provider Active Start: April 11, 2025 End: April 11enjaayaan Juarez DOAttending ProviderActiveStart: April 11, 2025 End: April 11, 2025 Chief Complaint and Reason for Visit Chief Complaint Admit Date Medicare Wellness/LV 02/13 KM April 112024 1:46pm Reason for Visit Admit Date Anemia April 11, 2025 1 :46pm Elevated cholesterol April 11, 2025 1:46pm Hx of gout April 11, 2025 1 :46pm Hypertension April 11, 2025 1 :46pm MCI (mild cognitive impairment) April 11, 2025 1:46pm Medicare annual wellness visit, subseque nt April 11, 2025 1:46pm Scalp ulceration April 11, 2025 1 :46pm Screening mammogram for breast cancer Oc tober 2024 1:46pm Allergies, Adverse Reactions, Alerts Allergen Type Severity Reaction Last Updated Verified Status No Known Allergies Allergy Unknown April 11, 2025 2:06pmYesActive Social History Smoking Status Status Start Date End Date Date of Observa tion Never smoked tobacco (finding) January 25, 2025 2:40pm Observation Status Observation Response Date of Response Legal Sex Female (finding) Sex [facility] Problems Active Problems Problem Diagnosis/Recorded Date Onset Date Status C omments Scalp ulceration October 20, 2023 8:16pm Unknown Active Medicare annual wellness visit, subsequentSeptember 2023 7:08amUnknown ActiveScreening mammogram for breast cancerSept2023 7:10amUnknown ActiveElevated cholesterolApril 2023 11:03amUnknownActiveAnemiaOctober 2024 4:05pmUnknownActiveAnterior dislocation of left shoulderApril 2024 9:36amUnknownActiveDyspneaApril 2024 1:55pmUnknownActiveMCI (mild cognitive impairment)October 18, 2023 7:38amUnknownActiveTachycardiaApril 2024 1:55pmUnknownActiveHx of goutApril 2023 7:38amUnknownActivePeripheral artery diseaseMay 2023 11:54amUnknownActiveABI: left 1.4, right 1.1 - 5/2023HypertensionJune 2022 4:51pmUnknownActiveInactive/Resolved Problems Problem Diagnosis/Recorded Date Onset Date Status C omments Ankle sprain December 07, 2022 6:46pm Unknown Resolved Problem List clean-up per request of Phys. EHR Cmte Dislocation of shoulder region September 30, 2024 9:05am Unknown Resolved Medications Medication Status Dose Units Route Directions Qty Days Refills S tart Date Stop Date End Date Reason(s) Instructions Adherence Folic Acid 1 mg tablet Discontinued 1 MG PO Daily 0 August 04, 2023 1:00am September 06, 2023 2:08pmPolysaccharide Iron Complex (Ferrex 150) 150 mg iron btqzkujGlswqzcqgieg581IEIUuhram other slx75586Drkewalc 2023 1:00amApril 2024 7:10amFolic Acid 1 mg tabletDiscontinued0.ROUTE.QHIKCQW4444Uocif 2023 2:08pmMarch 2023 4:06pmTAKE 1 TABLET BY MOUTH DAILYFolic Acid 1 mg tabletDiscontinued0.ROUTE.RMLESJC477Bcqob 2023 4:06pmJanuary 2024 4:43pmTAKE 1 TABLET BY MOUTH DAILYAllopurinol 100 mg gknvveWsjsirtwfxbf054JWXP Wxdbt34342Uceqh 2023 1:44pmOctober 2023 10:36pmAtorvastatin 80 mg fzyoohZdmuzcbrxugy81MOCFOktoj59106Stcu 2023 8:38amJuly 2023 8:39am Colchicine 0.6 mg tabletDiscontinued0.4ZRBRWdciv60519Kkti 2023 8:39amApril 2024 7:10amAtorvastatin 80 mg mjqslxScxqyukqqqaq94IFHVHnvbl53246Oakm 2023 8:39amJuly 2024 8:36pmAllopurinol 100 mg iycpmiZfcoukyoqziu958XHFS Arjss893213Suniffh 2023 10:36pmOctober 2023 2:14pmLisinopril 10 mg tabletDiscontinued0.ROUTE.UYZZCHP312Blkdfdd 2023 6:55amOctober 2024 9:03amTAKE 1 TABLET BY MOUTH DAILYAllopurinol 100 mg tabletActive0.ROUTE.COMPLEX 6011October 2023 2:14pmTAKE 2 TABLETS BY MOUTH DAILYComplies with drug therapyFolic Acid 1 mg tabletDiscontinued0.ROUTE.HCFVVHB521Ciiwcpp 2024 4:43pmApril 2024 7:10amTAKE 1 TABLET BY MOUTH DAILYAtorvastatin 80 mg tabletActive0.ROUTE.SIYWDSP530Gifz 2024 8:35pmTAKE 1 TABLET BY MOUTH DAILY Complies with drug therapyLisinopril 10 mg bylxjzByjvnglpzegs42OVMSTudnd78628 March 30, 2025 9:02amOctober 2024 2:52pmLisinopril 10 mg tablet Emdhrtmhshux80DYPMSlpjk99199Piqpllk 12th, 2025 2:52pmOctober 2024 2:10pm Allopurinol 100 mg mdxnsiNmcgwdakcavz798VCKQIymerCxeag 2023 12:00amApril 2023 1:45pmColchicine 0.6 mg tabletDiscontinued0.6MGPODailyApril 2023 12:00amJuly 2023 8:39amLisinopril 10 mg rvsiaaRtohxweeqopt12MBXOOocti October 19, 2023 12:00amOctober 2023 6:55amDoxycycline Hyclate 100 mg jrxxfbgSmdeqapvogtk122EDVNEhnjb dydqq57166Ran2023 12:00amApril 2024 7:10amMupirocin 2 % vtobueoyGrqgbyglvfac0XKHDJEPPYTMUBCdgwq ntfvc33111Tnn2023 12:00amApril 2024 7:10amAspirin (Adult Aspirin Regimen) 81 mg tablet,delayed release (DR/EC)Khasmplrpvpa28RKSBSvtmi46684Rfv 2023 12:00am September 30, 2024 8:07amAtorvastatin 80 mg wpqoefVxumucvbhybz13RLQHStgce84029Mfg 2023 12:00amJuly 2023 8:38amFolic Acid 20 mg dcyjsobOvydpr43OOFNYnssw October 18, 2024 12:00amComplies with drug therapyBetamethasone Dipropionate 0.05 % iycfuxdcBpotgs2XZUNPJHWPJLJMGprwz wveru81242Fdecimw 2024 12:00am Complies with drug therapy Immunizations Immunization Event Date Not Given Reason Dose Number [employer] Lot Number Reason(s) Given Vaccine Information Statement (VIS) Detail Administration Location COVID-19 mRNA-1273 (Moderna) October 11, 2020 [id number] mRNA-1273 (Moderna)October [id number] mRNA-1273 (Moderna)June [id number]-65 (MODERNA) 12Y and olderNovember [id number] (NOVAVAX) 12Y and olderNovember 2023 [id number] (PFIZER) 12Y and olderJuly [id number] TIV High-Dose 65YR+April 11, 2025U8800CAFPG [facility]enInfluenza, seasonal, injectable, pfOctober [id number] [facility] Influenza, seasonal, injectable, pfOctober [id number] Quadrivalent PF MDCKOctober [id number] Quadrivalent PF MDCKOctober 2021 [id number] Quadrivalent MDCK with preservativeSeptember [id number] Influenza Quadrivalent MDCK with preservativeSeptember [id number] influenza, unspecified formulationSeptember 2017influenza, unspecified formulationSeptember , 2019influenza, unspecified formulationOctober 2020influenza, unspecified formulationOctober neumococcal Conjugate Vaccine, 20 valentNovember [id number] InfluenzaOctober , 8768YX35QNtpnfnodxpgq InfluenzaOctober [id number] Vaccine Recombinant, AdjuvantedNov2F3RZoster Vaccine Recombinant, AdjuvantedApril [id number], Diphtheria adult, 5 Lf pres free abs April 06, 2014Tetanus, Diphtheria adult, 5 Lf pres free absSept2015Tetanus, Diphtheria adult, 5 Lf pres free absSeptember 2016 Vital Signs Vital Reading Result Reference Range Collection Date/Time Height 52 [in_i] April 11, 2025 2:85xsZjrkpk28.05 kgOctober 2024 2:10pmHeart Rate94 /lay05-218Gyezlfy 2024 2:10pmRespiratory rate20 /vxh30-52Jfjgpso 2024 2:10pmBP Oxbwfgue252 mm[Hg]100-140October 2024 2:10pmBP Wluwvihwl21 mm[Hg]60-100October 2024 2:10pmBMI (Body Mass Index)25.2 kg/v8Fcughzs 2024 2:10pm Advance Directives Advance Directive Response Recorded Date/ Time Advance Directives Yes January 25, 2 025 2:40pm Insurance Providers Guarantor Monique Scherf Address [address] [place], [place] [address] [address]Jfffjpl Info.Home Phone: Coverage Status Update:2024 Payer Group Member ID Coverage Type Subscriber Relationship to Subscriber Effective Date Expiration Date Medicare Id: [id number] Sche Id: [id number] [address] [facility] [address] Home Phone: Self Encounters Encounter Location(s) Arrival/Admit Date Discharge/Departure Date Discharge/Departure Disposition Provider(s) Departed Physician/ Provider Office Visit -[facility] April 11, 2025 1:46pm April 11, 2025 2:37pm Discharged to home care or self care (routine discharge) Hilton Juarez DO Recent Diagnosis Onset Date Admit Date Anemia Unknown April 11 1:46pm Elevated cholesterol Unknown March 1:46pm Hx of gout Unknown April 11 1:46pm Hypertension Unknown April 11 1:46pm MCI (mild cognitive impairment) Unknown April 11, 2025 1:46pm Medicare annual wellness visit, subsequent Unkno wn April 11, 2025 1:46pm Scalp ulceration Unknown April 11 1:46pm Screening mammogram for breast cancer Unknown April 11, 2025 1:46pm Assessments Diagnosis Onset Date Resolution Status Admit Date Anemia acuteOctober 2024 1:46pmElevated cholesterolacuteOctober 2024 1:46pm Hx of goutacuteOctober 2024 1:46pmHypertensionacuteOctober 2024 1:46pmMCI (mild cognitive impairment)acuteOctober 2024 1:46pmMedicare annual wellness visit, subsequentacuteOctober 2024 1:46pmScalp ulceration acuteOctober 2024 1:46pmScreening mammogram for breast canceracuteOctober 2024 1:46pm Plan of Treatment Author Zayda Marte [facility] HospitalAuthoredOctober 2024 2:06pmI have instructed this patient to consume a healthy, low-fat, low-salt diet. I have also encouraged them to continue exercise with weight loss to achieve/maintain a BMI < 30. I have instructed this patient on the correct procedure for obtaining home BP measurements:? - rest for 5 minutes w/o talking. - positioned w/ feet on floor and arms supported. - average best 2/3 readings w/ goal < 135/85. - update office w/ home readings in 2 weeks. Since her BP is borderline w/ tachycardia, instructed to hold her Lisinopril Check CBC, CMP and TSH Family assisting w/ ADL/IADL She remains functional. No behavioral problems Referred to Dermatology and found to be cancer. Excised w/ f/u appt scheduled Diet instructions Continue to monitor for acute attacks - Prednisone as needed for pain I have instructed this patient on a low fat, high fiber diet and exercise. I have discussed the primary and secondary prevention benefits attributed to lowering LDL cholesterol. I have also discussed the medical treatment of elevated cholesterol, which is based on the 10 year ASCVD risk. Macrocytic anemia No s/s GIB Normal B12, FA, Fe, TIBC and Ferritin in past Decreased Tsat% I have instructed this patient on monthly SBE and recommended yearly mammograms. Future Tests Future scheduled test information is unavailable Pending Tests Test Name Ordered Date Scheduled Date MM screening mammo BI w/CAD April 11, 2025 2 :32pm Comprehensive Metabolic PanelOctober 2024 2:28pm Future Visits Future appointment information is unavailable Future Procedures Procedure Name Ordered Date Scheduled Date Vitamin B12 April 11, 2025 2:28pm Complete Blood Count Auto DiffOctober 2024 2:28pmIron and TIBC Profile April 11, 2025 2:28pmFerritinOctober 2024 2:28pmFolateOctober 2024 2:28pmThyroid Stimulating HormoneOctober 2024 2:28pm Future Medications Future medication information is unavailable Patient Instructions Patient instructions are unavailable
--- OUTSIDE RECORDS SUMMARY | 2025-04-25 09:29 | XMS_ITS | Clinical Summary ---
Author Organization [facility] Address [address] [place] [address] Care Team Providers Care Sulky Driver Name Role Phone Hilton Juarez Primary Care Provider [phone] Allergies No known active allergies Medications MedicationSigDispense QuantityRefillsLast FilledStart DateEnd DateStatus lisinopril 10 MG tablet 07/11/2023ctive allopurinol (Zyloprim) 100 MG tablet 07/21/2023ctive Active Problems No known active problems Family History RelationNameStatusCommentsFatherDeceasedMotherDeceased Social History Tobacco UseTypesPacks/DayYears UsedDateSmoking Tobacco: NeverPassive Smoke Exposure: NeverSmokeless Tobacco: Never Tobacco Cessation:Counseling Given: Yes Alcohol UseStandard Drinks/WeekCommentsNever0 (1 standard drink = 0.6 oz pure alcohol)CommentsUnknownSex and Gender InformationValueDate RecordedSex Assigned at BirthNot on fileLegal EbjMzjipi21/05/2023 11:50 AM EDTGender IdentityNot on fileSexual OrientationNot on file Last Filed Vital Signs Vital SignReadingTime TakenCommentsBlood Ibqhwjww071/8009 1:44 PM EDT Ravlj2282 1:44 PM EDTTemperature--Respiratory Nzgq027311/08/2024 1:36 PM EDTOxygen Saturation--Inhaled Oxygen Concentration--Xpzulm19.9 kg (110 lb) 11/08/2024 1:36 PM RBFWoaabd931.3 cm (4' 10 )11/08/2024 1:36 PM EDTBody Mass Index22.9905 1:36 PM EDT Plan of Treatment Health MaintenanceDue DateLast DoneCommentsCT Nfnzrkiidbsp1959Colonoscopy 1959Colorectal Cancer Nyehtqqmd1959FIT-DNA1959FIT1959 FOBT1959 7400Ifgtgqbgbusli1959MMR Vaccines (1 of 1 - Standard series) 1960DTaP/Tdap/Td Vaccines (1 - Tdap)1966Pap Smear1980Cervical Cancer Jowkgvqxo01/30/1989HPV/Rizlhf3405/20/19899608Fnzrduajs78/30/1999COVID-19 Vaccine ( - season)501/10/2021, 10/29/2020, 10/11/2020 Influenza Vaccine (#1)/07/2023, 04/09/2023, 04/15/2022, Additional history existsPneumococcal Vaccine: 65+ FrytlVwangciqk97/20/2024HIB VaccinesAged OutNo longer eligible based on patient's age to complete this topicHPV Vaccines Aged OutNo longer eligible based on patient's age to complete this topic Hepatitis A VaccinesAged OutNo longer eligible based on patient's age to complete this topicHepatitis B VaccinesAged OutNo longer eligible based on patient's age to complete this topicIPV VaccinesAged OutNo longer eligible based on patient's age to complete this topicMeningococcal B VaccineAged OutNo longer eligible based on patient's age to complete this topicMeningococcal VaccineAged OutNo longer eligible based on patient's age to complete this topicRotavirus VaccinesAged OutNo longer eligible based on patient's age to complete this topic Insurance Care Teams Team MemberRelationshipSpecialtyStart DateEnd Date Hilton Juarez DO [address] [place] [address] PCP - [facility]nal [facility]11/08/24
--- OUTSIDE RECORDS SUMMARY | 2025-04-25 09:30 | XMS_ITS | CCD ---
Author Organization [facility] CliniSypr Care Team Providers Care Process Plant Operator Name Role Phone DR HILTON JUAREZ Consulting Unavailable LARRY, DR ALVES Primary Care Unavailable LARRY, DR ALVES Admitting Unavailable LARRY, DR ALVES Attending Unavailable LEVI, DR HEAVENLY Vasquez Consulting Unavailable LARRY, DR ALVES Primary Care Unavailable LARRY, DR ALVES Admitting Unavailable LARRY, DR ALVES Attending Unavailable LARRY, DR ALVES Consulting Unavailable Hilton Juarez Unavailable DO Hilton Juarez Primary Care Provider [phone] GISSELL Palacio Emergency Provider Robyn Calderón MD Attending Provider [phone] Hilton Juarez MD Primary Care Provider Hilton Juarez DO Primary Care Provider [phone] Andre Dawn DO Emergency Provider [phone] Michael Krueger MD Attending Provider Hilton Juarez DO Primary Care Provider BECK FRANCIS Attending Unavailable BECK FRANCIS Attending Unavailable BECK FRANCIS Attending Unavailable BECK FRANCIS Attending Unavailable BECK FRANCIS Attending Unavailable Sabi Mora CMA Attending Provider UnavailMichael Ly MD Attending Provider [phone] Hilton Juarez DO Attending Provider [phone] Hilton Juarez DO Primary Care Provider Michael Krueger MD Attending Provider [phone] Robyn Calderón Admitting Unavailable Robyn Calderón Attending Unavailable Michael Krueger Admitting Unavailable Michael Krueger Attending Unavailable Hilton Juarez Primary Care Unavailable Pati, Michael Admitting Unavailable Pati, Michael Attending Unavailable Hilton Juarez Primary Care Unavailable Andre Dawn Admitting Unavailable Andre Dawn Attending Unavailable Hilton Juarez Primary Care Unavailable Michael Krueger Admitting Unavailable Michael Krueger Attending Unavailable Hilton Juarez Primary Care Unavailable Hilton Juarez DO Primary Care Provider Hilton Juarez DO Attending Provider [phone] Medications Current Medications MedicationDrug Class(es)DatesSig (Normalized)Sig (Original)allopurinol 100 mg oral tablet (20 sources)Xanthine Oxidase InhibitorStart: 61-95-9636ybgc 2 tablets by mouth once dailyAllopurinol 100 mg tablet Active 0 .ROUTE .COMPLEX 60 April 11, 2024 2:14pm TAKE 2 TABLETS BY MOUTH DAILY Complies with drug therapyStart: 50-40-8305ment 200 mg by mouth once dailyAllopurinol Active 200 MG PO Daily 60 30 October 19, 2023 1:44pmStart: 10-19-2023 End: 52-41-1812gowd 2 tablets by mouth once dailyAllopurinol 100 mg tablet Discontinued 200 MG PO Daily 180 90 March 28, 2024 10:36pm April 11, 2024 2:14pmStart: 07-21-2023 End: 85-74-4463mtmq 1 tablet by mouth once dailyAllopurinol 100 mg tablet Discontinued 100 MG PO Daily October 19, 2023 12:00am October 19, 2023 1:45pm Start: 74-39-2661somo 1 tablet by mouth every twenty-four hoursAllopurinol 100 MG 1 tablet Orally Once a day for 30 days Increase to 2 daily after 14 days Activeatorvastatin 80 mg oral tablet (20 sources)HMG-CoA Reductase InhibitorStart: 34-27-4202mith 1 tablet by mouth once dailyAtorvastatin 80 mg tablet Active 0 .ROUTE .COMPLEX 90 January 10, 2025 8:35pm TAKE 1 TABLET BY MOUTH DAILY Complies with drug therapyStart: 10-20-2023 End: 58-13-9767iomv 1 tablet by mouth once dailyAtorvastatin 80 mg tablet Discontinued 80 MG PO Daily 90 90 3 December 21, 2023 8:39am January 1058:36pm betamethasone 0.0005 mg/mg topical ointment (1 source)CorticosteroidStart: 46-65-5957Ixndlmijmhnhn Dipropionate 0.05 % ointment Active 1 APPLIC TOPICAL Twice daily 15 30 April 11 2025 12:00am Complies with drug therapyfolic acid 20 mg oral capsule (20 sources)Start: 02-49-7222yjhm 1 capsule by mouth once dailyFolic Acid 20 mg capsule Active 20 MG PO Daily October 18, 2024 12:00am Complies with drug therapyStart: 09-06-2023 End: 57-48-3023vyot 1 tablet by mouth once dailyFolic Acid 1 mg tablet Discontinued 0 .ROUTE .COMPLEX 90 3 June 25, 2024 4:43pm September 30, 2024 7:10am TAKE 1 TABLET BY MOUTH DAILYStart: 08-04-2023 End: 33-05-0165kvxe 1 tablet by mouth once dailyFolic Acid 1 mg tablet Discontinued 1 MG PO Daily August 04, 2023 1:00am September 06, 2023 2:08pmpredniSONE 20 mg oral tablet (5 sources)take 1 tablet by mouth twice daily Completed/Discontinued Medications MedicationDrug Class(es)DatesSig (Normalized)Sig (Original)aspirin 81 mg delayed release oral tablet (12 sources)Platelet Aggregation Inhibitor, Nonsteroidal Anti-inflammatory Drug Start: 10-20-2023 End: 94-68-5391qbrr 1 tablet by mouth once dailyAspirin (Adult Aspirin Regimen) 81 mg tablet,delayed release (DR/EC) Discontinued 81 MG PO Daily 3030 October 20, 2023 12:00am September 30, 2024 8:07amcolchicine 0.6 mg oral tablet (20 sources)Start: 10-19-2023 End: 59-98-5956ovkl 1 tablet by mouth once dailyColchicine 0.6 mg tablet Discontinued 0.6 MG PO Daily 90 90 December 21, 2023 8:39am September 30, 2024 7:10amStart: 77-52-4717jqtx 1 tablet by mouth every twenty-four hoursColchicine 0.6 MG 1 tablet Orally qd for 30 days Apr, ActiveStart: 50-59-7423wqqw 1 tablet by mouth every twenty-four hoursColchicine 0.6 MG 1 tablet Orally daily for 30 days Aug, Activedoxycycline hyclate 100 mg oral capsule (16 sources)Tetracycline-class DrugStart: 10-20-2023 End: 43-27-9037qcee 1 capsule by mouth twice dailyDoxycycline Hyclate 100 mg capsule Discontinued 100 MG PO Twice daily 20 October 20, 2023 12:00amApril 2024 7:10amtake 1 capsule by mouth every twelve hoursDoxycycline Hyclate 100 MG 1 capsule Orally Twice a day for 14 days Activelisinopril 10 mg oral tablet (20 sources)Angiotensin Converting Enzyme InhibitorStart: 03-30-2025 End: 67-48-2496ovkg 1 tablet by mouth once dailyLisinopril 10 mg tablet Discontinued 10 MG PO Daily 90 90 April 01, 2025 2:52pm March 2:10pmStart: 04-06-2024 End: 11-96-9466hwqx 1 tablet by mouth once dailyLisinopril 10 mg tablet Discontinued 0 .ROUTE .COMPLEX 90 April 06, 2024 6:55am March 9:03am TAKE 1 TABLET BY MOUTH DAILYStart: 07-11-2023 End: 97-69-7489mnwq 1 tablet by mouth once dailyLisinopril 10 mg tablet Discontinued 10 MG PO Daily October 19, 2023 12:00am April 06, 2024 6:55am Lisinopril 10 MG TAKE ONE TABLET BY MOUTH DAILY Orally Once a day for 90 days New dose for next refill Activetake 1 tablet by mouth once dailyLisinopril 20 MG TAKE ONE TABLET BY MOUTH DAILY for 90 Activemupirocin 0.02 mg/mg topical ointment (12 sources)RNA Synthetase Inhibitor AntibacterialStart: 10-20-2023 End: 19-15-6279Kgpzqgljv 2 % ointment Discontinued 1 APPLIC TOPICAL Twice daily 22 October 20, 2023 12:00am September 30, 2024 7:10ampolysaccharide iron complex 150 mg oral capsule (12 sources)Start: 08-04-2023 End: 16-78-2981Bvsnjcfepaekhl Iron Complex (Ferrex 150) 150 mg iron capsule Discontinued 150 MG PO every other dayAugust 04, 2023 1:00am September 30, 2024 7:10am Problems Active Problems Problem ClassificationProblemDateDocumented DateEpisodic/ChronicAcquired foot deformities (2 sources)Acquired deformity of toe of left foot; Translations: [Acquired deformities of toe(s), unspecified,left foot]70-59-3314FzlturtcMjtohwaz of urinary tract (5 sources)Kidney stone; Translations: [Calculus of kidney]EpisodicCardiac dysrhythmias (10 sources)Tachycardia; Translations: [Tachycardia, unspecified]10-18-2024 EpisodicChronic ulcer of skin (19 sources)Skin ulcer; Translations: [Non-pressure chronic ulcer of skin of other sites with unspecified severity]50-85-2924GrkykiwKgpzgvsuqcg and hemorrhagic disorders (4 sources)Thrombocytopenia, unspecified; Translations: [THROMBOCYTOPENIA UNSPECIFIED]Onset: 65-21-5606WmifucgEcsuketcmm and other anemia (2 sources)Anemia; Translations: [Anemia, unspecified]00-72-0875Ybifykep Developmental disorders (5 sources)Mild intellectual disability; Translations: [Mild intellectual disabilities]ChronicDisorders of lipid metabolism (20 sources)Familial hypercholesterolemia; Translations: [Pure hypercholesterolemia]Onset: 147489-59-8062FxcgvvnWcuneonhp hypertension (20 sources)Essential hypertension; Translations: [Essential (primary) hypertension]11-96-8773RymhyfuMyxq and other crystal arthropathies (17 sources)Gouty tophus; 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, unspecified, with tophus (tophi)]ChronicHypertension with complications and secondary hypertension (9 sources)Hypertensive chronic kidney disease with stage 1 through stage 4 chronic kidney disease, or unspecified chronic kidney disease; Translations: [Chronic kidney disease due to hypertension]Onset: 90-31-7084WmakdosRhvwm disorders and dislocations; trauma-related (20 sources)Dislocation of joint of upper limb; Translations: [Unspecified dislocation of unspecified shoulder joint, initial encounter]Onset: 10-04-2024 67-89-4745XljvxfrjGywwgip (4 sources)Pain in toe; Translations: [Tinea unguium]77-91-6119Qjtnmjrl Nutritional deficiencies (1 source)Vitamin D deficiency; Translations: [Vitamin D deficiency, unspecified]ChronicOther acquired deformities (5 sources)Thoracogenic scoliosis; Translations: [Thoracogenic scoliosis, thoracolumbar region]ChronicOther connective tissue disease (15 sources)H/O: gout; Translations: [Personal history of other diseases of the musculoskeletal system and connective tissue]65-18-5188JllptxdlDcoay connective tissue disease (4 sources)Personal history of other diseases of the musculoskeletal system and connective tissue; Translations: [Personal history of other endocrine, metabolic, and immunity disorders]42-46-6508YdnauzcnBlxzw connective tissue disease (1 source)Pain of toes of bilateral feet; Translations: [Pain in right toe(s)] 86-12-0501WbhwfxkmLsxkg ear and sense organ disorders (6 sources)Sensorineural hearing loss, bilateral; Translations: [Sensorineural hearing loss, bilateral]ChronicOther hereditary and degenerative nervous system conditions (15 sources)Impaired cognition; Translations: [Mild cognitive impairment, so stated]81-73-7434NyzkrveJgaos hereditary and degenerative nervous system conditions (4 sources)Mild cognitive impairment, so stated; Translations: [Mild cognitive impairment, so stated]51-04-7721ChqdztiLpycv inflammatory condition of skin (5 sources)Plaque psoriasis; Translations: [Psoriasis vulgaris]ChronicOther lower respiratory disease (6 sources)Dyspnea; Translations: [Dyspnea, unspecified]86-74-3187PmuceehxHfidl nutritional; endocrine; and metabolic disorders (1 source)Hyperuricemia without signs of inflammatory arthritis and tophaceous diseaseEpisodicOther screening for suspected conditions (not mental disorders or infectious disease) (16 sources)Encounter for screening mammogram for malignant neoplasm of breast; Translations: [Patient encounter status]Onset: 890334-07-6839Zrrbptnm Peripheral and visceral atherosclerosis (20 sources)Peripheral vascular disease, unspecified; Translations: [Peripheral arterial disease]80-97-3357WjquzetPompvms on above:ARLINE: left 1.4, right 1.1 - 10/2023Skin and subcutaneous tissue infections (6 sources)Paronychia of finger of right hand; Translations: [Cellulitis of right finger]EpisodicSprains and strains (13 sources)Sprain of ankle; Translations: [Sprain of unspecified ligament of unspecified ankle, initial encounter]55-64-0476EhvocckxQttsmna on above:Problem List clean-up per request of Phys. EHR CmteUnclassified (1 source)CHRN KIDNEY DISEASE STG 3 UNSP; Translations: [CHRN KIDNEY DISEASE STG 3 UNSP]Onset: 05-04-2022 Past or Other Problems Problem ClassificationProblemDateDocumented DateEpisodic/ChronicNeoplasms of unspecified nature or uncertain behavior (1 source)Neoplasm of uncertain behavior of skin; Translations: [Neoplasm of uncertain behavior of skin]Onset: 94-24-6638DagkvrxtDzewk non-traumatic joint disorders (1 source)Pain in left shoulder; Translations: [Pain in left shoulder]Onset: 16-12-5054Isduzefh Results Test NameValueInterpretationReference RangeFacilityBasophils Auto (Bld) [#/Vol] on 58-37-6399Kcuorhkta (Bld) [#/Vol]Automated basophil count0.0-0.1FGenesis HospitalBasophils (Bld) [#/Vol]0.0 10 3/uL0.0-0.1FGenesis HospitalBasophils/100 WBC Auto (Bld)on 06-04-5830Eizunemve/100 WBC (Bld)Automated basophil %0.2-2.0[facility] Basophils/100 WBC (Bld)0.3 %0.2-2.0[facility] Eosinophils/100 WBC Auto (Bld)on 64-99-6658Naufrfbtele/100 WBC (Bld)Automated eosinophil %0.9-7.0[facility] HospitalEosinophils/100 WBC (Bld)1.1 %0.9-7.0[facility] HospitalErythrocyte distribution width Auto (RBC) [Ratio]on 85-98-7835Zompvokyevx distribution width (RBC) [Ratio] Erythrocyte distribution width [Ratio] by Automated count11.0-15.0[facility] HospitalErythrocyte distribution width (RBC) [Ratio]14.9 % 11.0-15.0[facility] HospitalEstimated glomerular filtration rate (GFR) non- Americanon 60-14-7624XEQ/1.73 sq M.predicted among non-blacks MDRD (S/P/Bld) [Vol rate/Area]Estimated glomerular filtration rate (GFR) non- AmericanLow>=60 mL/min/1.73m 2FGenesis HospitalGFR/1.73 sq M.predicted among non-blacks MDRD (S/P/Bld) [Vol rate/Area]37 mL/min/{1.73_m2}Low>=60 mL/min/1.73m [address] [place], [place] [address]Globulin Calc (S) [Mass/Vol]on 61-79-3873Epkioxtx (S) [Mass/Vol]Serum globulin measurement by calculation (mass/volume)[facility] Globulin (S) [Mass/Vol]3.9 g/dLOhiohealth Shelby HospitalHematocrit Auto (Bld) [Volume fraction]on 28-79-7272Oubfdkfrhc (Bld) [Volume fraction]Hematocrit [Volume Fraction] of Blood by Automated rrzhkBiv73.0-48.0[facility] HospitalHematocrit (d) [Volume fraction]30.1 %Low36.0-48.0[facility] HospitalHemoglobin [Mass/volume] in Bloodon 35-77-7249Rfqbnuhmay (Bld) [Mass/Vol]Hemoglobin [Mass/volume] in MqhqcFev78.0-16.0[facility] HospitalHemoglobin (Bld) [Mass/Vol]9.4 g/dLLow12.0-16.0[facility] HospitalLaboratory - Chemistry and Chemistry - challengeon 10-19-2024 Albumin [Mass/Vol]3.0 g/dLLow3.4-5.0[facility] HospitalALP [Catalytic activity/Vol]173 U/EIyae86-651RfdocxzqkOhiohealth Shelby HospitalALT [Catalytic activity/Vol]26 U/B72-11DszekstjsOhiohealth Shelby HospitalAST [Catalytic activity/Vol]27 U/K40-13SxwwbjegkOhiohealth Shelby HospitalBilirubin [Mass/Vol]0.4 mg/dL0.2-1.0[facility] HospitalCalcium [Mass/Vol]9.2 mg/dL8.5-10.1FGenesis HospitalChloride [Moles/Vol]105 mmol/L 98-107[facility] HospitalCO2 [Moles/Vol]25.7 mmol/L21.0-32.0 [facility] HospitalCreatinine [Mass/Vol]1.42 mg/dLHigh0.55-1.02 [facility] HospitalGFR/1.73 sq M.predicted MDRD (S/P/Bld) [Vol rate/Area]45 mL/min/{1.73_m2}Low>=60 mL/min/1.73m 2FGenesis HospitalGlucose [Mass/Vol]138 mg/dZLkau73-146UklugwfawOhiohealth Shelby Hospital Potassium [Moles/Vol]3.9 mmol/L3.5-5.1FGenesis HospitalProtein [Mass/Vol]6.9 g/dL6.4-8.2FProMedica Bay Park Hospitalodium [Moles/Vol]141 mmol/C552-146FwvjwufziOhiohealth Shelby HospitalTSH Qn2.161 m[IU]/L0.358-3.740 [facility] HospitalUrea nitrogen [Mass/Vol]31.0 mg/dLHigh7.0-18.0 [facility] HospitalUrea nitrogen/Creatinine [Mass ratio]21.8 mg/mg [facility] HospitalLaboratory - Hematology and Cell countson 66-88-2543Htywogvi granulocytes/100 WBC (Bld)0.3 %0.0-0.5FGenesis HospitalLeukocytes [#/volume] corrected for nucleated erythrocytes in Blood by Automated counon 62-28-3616XDW corrected for nucl RBC Auto (Bld) [#/Vol]Leukocytes [#/volume] corrected for nucleated erythrocytes in Blood by Automated coun4.0-11.0[facility] HospitalWBC corrected for nucl RBC Auto (Bld) [#/Vol]9.2 10 3/uL4.0-11.0[facility] Lymphocytes Auto (Bld) [#/Vol]on 38-37-9007Babrgzeqnqo (Bld) [#/Vol]Lymphocytes [#/volume] in Blood by Automated count1.2-3.8[facility] Lymphocytes (Bld) [#/Vol]1.2 10 3/uL1.2-3.8[facility] Lymphocytes/100 WBC Auto (Bld)on 60-74-1528Smsvbgyzqpr/100 WBC (Bld) Lymphocytes/100 leukocytes in Blood by Automated svpnjGkz49.5-60.0[facility] HospitalLymphocytes/100 WBC (Bld)13.2 %Low20.5-60.0[facility]H Auto (RBC) [Entitic mass]on 79-67-2427EGI (RBC) [Entitic mass]MCH [Entitic mass] by Automated count26.7-34.0[facility] (RBC) [Entitic mass]31.1 pg26.7-34.0[facility] NorthHC Auto (RBC) [Mass/Vol]on 37-75-0285ICLF (RBC) [Mass/Vol]MCHC [Mass/volume] by Automated count29.9-35.2FMount Carmel Health SystemHC (RBC) [Mass/Vol]31.2 g/dL29.9-35.2FMount Carmel Health SystemV Auto (RBC) [Entitic vol]on 42-67-0997WNM (RBC) [Entitic vol]MCV [Entitic volume] by Automated aphrrVxvz92.0-99.0[facility] NorthV (RBC) [Entitic vol]99.7 yRDjpq98.0-99.0[facility] HospitalMonocytes Auto (Bld) [#/Vol]on 66-51-9665Ocxjvtmog (Bld) [#/Vol]Automated blood monocyte count0.3-0.8 [facility] HospitalMonocytes (Bld) [#/Vol]0.5 10 3/uL0.3-0.8 [facility] HospitalMonocytes/100 WBC Auto (Bld)on 10-19-2024 Monocytes/100 WBC (Bld)Automated monocyte %1.7-12.0[facility] HospitalMonocytes/100 WBC (Bld)5.9 %1.7-12.0[facility] Neutrophils Auto (Bld) [#/Vol]on 00-05-5768Puzavtnnzrp (Bld) [#/Vol]Neutrophils [#/volume] in Blood by Automated countHigh1.4-6.5FGenesis HospitalNeutrophils (Bld) [#/Vol]7.3 10 3/uLHigh1.4-6.5FGenesis HospitalNeutrophils/100 WBC Auto (Bld)on 86-59-4074Datdwnzmkbu/100 WBC (Bld) Automated neutrophil %High43.0-75.0[facility] Neutrophils/100 WBC (Bld)79.2 %High43.0-75.0[facility] HospitalNo Panel Informationon 06-31-4048Ptlajxooaww # (Auto)0.1 10 3/uL0.0-0.7FGenesis HospitalImmature Granulocyte # (Auto)0.03 10 3/uL0.00-0.03 [facility] HospitalPlatelet mean volume Auto (Bld) [Entitic vol]on 40-26-1616Poxmeycy mean volume (Bld) [Entitic vol]Platelet mean volume [Entitic volume] in Blood by Automated count9.5-13.5FGenesis Hospital Platelet mean volume (Bld) [Entitic vol]11.9 fL9.5-13.5FGenesis HospitalPlatelets Auto (Bld) [#/Vol]on 68-13-9902Ywwgkxait (Bld) [#/Vol] Platelets [#/volume] in Blood by Automated -832TiswphdiaOhiohealth Shelby HospitalPlatelets (Bld) [#/Vol]289 10 3/eT314-532RzhdnacvmOhiohealth Shelby HospitalRBC Auto (Bld) [#/Vol]on 26-33-9130HIX (Bld) [#/Vol]Erythrocytes [#/volume] in Blood by Automated countLow4.20-5.40[facility] HospitalRBC (Bld) [#/Vol]3.02 10 6/uLLow4.20-5.40[facility] Serum or plasma albumin/globulin mass ratioon 28-59-1660Nvkwyfp/Globulin [Mass ratio]Serum or plasma albumin/globulin mass ratioOhiohealth Shelby HospitalAlbumin/Globulin [Mass ratio]0.8 {ratio}[facility] Serum or plasma anion gap determinationon 26-49-2991Rljtk gap [Moles/Vol]Serum or plasma anion gap determinationOhiohealth Shelby HospitalAnion gap [Moles/Vol]14.2 mmol/LFGenesis HospitalCT shoulder LT wo conon 95-01-5876VY shoulder LT wo [facility] [place] [address] [place] [address] CT Scan Report Signed Patient: Binta Eldridge MR#: [id number] 47 : 1960 Acct:[id number] Age/Sex: 64 / F ADM Date: 10/04/24 Loc: [facility][NOTE 3] Room: Type: [facility] CLI Attending Dr: Michael Krueger MD Copies to: Michael Krueger MD Ordering Provider: Mihcael Krueger MD Date of Service: 10/04/24 CT/CT shoulder LT wo con: S43.015A - Anterior dislocation of left humerus, initial ... CT left shoulder WITHOUT CONTRAST WITH 3D RECONSTRUCTIONS: CLINICAL HISTORY: History of anterior dislocation. COMPARISON: Left shoulder 10/03/2024 TECHNIQUE: Spiral axial unenhanced images were obtained through the left shoulder. Sagittal, coronal and 3D volume-rendered reconstructions were also reviewed. This CT exam was performed using one or more following dose reduction techniques: Automated exposure control, adjustment of the mA and/or kV according to patient size, or use of iterative reconstruction technique. FINDINGS: Mild degenerative changes involving the AC and glenohumeral joints. No acute fracture is seen. No bony Bankart lesion is present. No Hill-Sachs deformity is seen. Inflammatory changes and small joint effusion/hemarthrosis is seen involving the glenohumeral joint. Likely tear involving the subscapularis. Supraspinatus demonstrates atrophy. No axillary lymphadenopathy. Visualized lung parenchyma demonstrates no acute process. Visualized rib cage appears intact. CT/CT shoulder LT wo con IMPRESSION: NO ACUTE BONY PROCESS. DEGENERATIVE CHANGES INVOLVING THE AC AND GLENOHUMERAL JOINTS. INFLAMMATORY CHANGES ARE NOTED INVOLVING THE GLENOHUMERAL JOINT WITH LIKELY JOINT EFFUSION /HEMARTHROSIS PRESENT. THERE IS ALSO LIKELY A TEAR INVOLVING THE SUBSCAPULARIS. THIS CAN BE CONFIRMED BY MRI. Impression dictated by: Sabas Rocha Jr., D.O.10/04/2024 12:30 PM Dictation Location: [place] [address] Transcribed By: [facility] 10/04/24 1230 Dictated By: Sabas Rocha Jr, DO 10/04/24 1224 Signed By: 10/04/[address] [facility] Physician GroupX-ray reportOrdered By: Sabas Rocha on 92-04-9251Rhsta reportFIRWAYNE HOSPITAL [facility] [address] [place] [address] XRay Report Signed Patient: Binta Eldridge MR#: [id number] : 1960 Acct:[id number] Age/Sex: 64 / F ADM Date: 5 [facility] Type: [facility] CLI Attending Dr: Michael Krueger MD Copies to: Michael Krueger MD~ Ordering Provider: Michael Krueger MD Date of Service: 10/03/24 XR/XR shoulder LT min 2V*: S43.015A - Anterior dislocation of left humerus, initial ... LEFT SHOULDER - - 3 views CLINICAL HISTORY: Follow-up left shoulder dislocation COMPARISON: Left shoulder 09/30/2024 FINDINGS: Bones are grossly demineralized. Degenerative changes are noted involving the AC and glenohumeral joints without acute bony process. No bony Bankart lesion is seen. No recurrent dislocation. XR/XR shoulder LT min 2V* IMPRESSION: DEGENERATIVE CHANGES INVOLVING THE LEFT SHOULDER WITHOUT ACUTE BONY PROCESS. Impression dictated by: Sabas Rocha Jr., D.O.10/03/2024 1:07 PM Dictation Location: [place] [address] Transcribed By: [facility] 10/03/24 1307 Dictated By: Sabas Rocha Jr, DO 10/03/24 1306 Signed By: 10/03/24 1307 [facility] HospitalXR shoulder LT min 2V*on 91-52-7257IB shoulder LT min 2V*[facility] [address] [place] [address] XRay Report Signed Patient: Binta Eldridge MR#: [id number] 46 : 1960 Acct:[id number] Age/Sex: 64 / F ADM Date: 10/03/24 Loc: [facility] Room: Type: REG CLI Attending Dr: Michael Krueger MD Copies to: Michael Krueger MD Ordering Provider: Michael Krueger MD Date of Service: 10/03/24 XR/XR shoulder LT min 2V*: S43.015A - Anterior dislocation of left humerus, initial ... LEFT SHOULDER - - 3 views CLINICAL HISTORY: Follow-up left shoulder dislocation COMPARISON: Left shoulder 09/30/2024 FINDINGS: Bones are grossly demineralized. Degenerative changes are noted involving the AC and glenohumeral joints without acute bony process. No bony Bankart lesion is seen. No recurrent dislocation. XR/XR shoulder LT min 2V* IMPRESSION: DEGENERATIVE CHANGES INVOLVING THE LEFT SHOULDER WITHOUT ACUTE BONY PROCESS. Impression dictated by: Sabas Rocha Jr., D.O.10/03/2024 1:07 PM Dictation Location: [place] [address] Transcribed By: [facility] 10/03/24 1307 Dictated By: Sabas Rocha Jr, DO 10/03/24 1306 Signed By: 10/03/[address] [facility] Physician GroupECG 12 lead ECGon 32-66-6260PHH 12 lead ECGST[facility] [place] [address] [place] [address] Electrocardiograph Report Signed Patient: Binta Eldridge MR#: [id number] [birth year] : 1960 Acct:[id number] Age/Sex: 64 / F ADM Date: 09/30/24 Loc: ER Room: Type: [facility] ER Attending Dr: Ordering Provider: Andre Dawn DO Date of Service: 09/30/2406/14/714 ECG/ECG 12 lead ECG: Extremity Injury, Upper Copies to: Test Reason : Blood Pressure : 131/83 mmHG Vent. Rate : 115 BPM Atrial Rate : 115 BPM P-R Int : 140 ms QRS Dur : 74 ms QT Int : 326 ms P-R-T Axes : 62 28 31 degrees QTcB Int : 450 ms Sinus tachycardia Otherwise normal ECG No previous ECGs available Confirmed by ANDRE DAWN DO ([id number]) on 09/30/2024 3:23:15 PM Referred By: Electronically Signed By: ANDRE DAWN DO Transcribed By: MUS Signed By Andre Dawn DO [address] Physician GroupX-ray reportOrdered By: Paul Jung on 56-80-6252Wdazr reportST. [facility] Main [address] [address] XRay Report Signed Patient: Binta Eldridge MR#: [id number] : 1960 Acct:[id number] Age/Sex: 64 / F ADM Date: 5 Loc: ER Room: Type: [facility] ER Attending Dr: Copies to: Andre Dawn DO~ Ordering Provider: Andre Dawn DO Date of Service: 09/30/24 XR/XR shoulder LT 1V: POST REDUCTION Single view left shoulder post reduction Adequate bony alignment. XR/XR shoulder LT 1V IMPRESSION: Adequate reduction. Impression dictated by: Paul Jung M.D.09/30/2024 9:14 AM Dictation Location: [place] [address] Transcribed By: [facility] 09/30/2414 Dictated By: Paul Jung DO 09/30/24 0914 Signed By: 09/30/24 0914 [facility] [address] XRay Report Signed Patient: Binta Eldridge MR#: [id number] : 1960 Acct:[id number] Age/Sex: 64 / F ADM Date: 5 Loc: ER Room: Type: [facility] ER Attending Dr: Copies to: Andre Dawn DO~ Ordering Provider: Andre Dawn DO Date of Service: 09/30/24 XR/XR shoulder LT min 2V*: Extremity Injury, Upper 2 views left shoulder plain film HISTORY: Fell yesterday. Left shoulder pain COMPARISON: None ACUTE FINDINGS: Anterior dislocation. No acute displaced fracture DEGENERATIVE CHANGE: Unremarkable SOFT TISSUE FINDINGS: Unremarkable JOINT EFFUSION: None POSTOP CHANGES: None BONY MINERALIZATION: Adequate XR/XR shoulder LT min 2V* IMPRESSION: Anterior shoulder dislocation. . Impression dictated by: Paul Jung M.D.09/30/2024 7:42 AM Dictation Location: [facility]20 Transcribed By: [facility] 09/30/24 0742 Dictated By: Paul Jung DO 09/30/24 0738 Signed By: 09/30/24 0742 [facility] Main [place] [id number] XRay Report Signed Patient: Binta Eldridge MR#: [id number] : 1960 Acct:[id number] Age/Sex: 64 / F ADM Date: 5 Loc: ER Room: Type: [facility] ER Attending Dr: Copies to: Andre Dawn DO~ Ordering Provider: Andre Dawn DO Date of Service: 09/30/24 XR/XR humerus LT*: Extremity Injury, Upper 2 views left humerus plain film COMPARISON: None HISTORY: Fell yesterday. Acute findings: Anterior shoulder dislocation. No acute displaced fracture. Degenerative change: Unremarkable Soft tissue findings: Unremarkable Joint effusion: None Postop changes: None XR/XR humerus LT* IMPRESSION:Anterior shoulder dislocation Impression dictated by: Paul Jung M.D.09/30/2024 7:42 AM Dictation Location: [facility]20 Transcribed By: [facility] 09/30/24 0742 Dictated By: Paul Jung DO 09/30/24 0742 Signed By: 09/30/24 0742 [facility]*on 37-01-6228FI humerus LT* [facility] Main [place] [id number] XRay Report Signed Patient: Binta Eldridge MR#: [id number] 47 : 1960 Acct:[id number] Age/Sex: 64 / F ADM Date: 09/30/24 Loc: ER Room: Type: [facility] ER Attending Dr: Copies to: Andre Dawn DO Ordering Provider: Andre Dawn DO Date of Service: 09/30/24 XR/XR humerus LT*: Extremity Injury, Upper 2 views left humerus plain film COMPARISON: None HISTORY: Fell yesterday. Acute findings: Anterior shoulder dislocation. No acute displaced fracture. Degenerative change: Unremarkable Soft tissue findings: Unremarkable Joint effusion: None Postop changes: None XR/XR humerus LT* IMPRESSION:Anterior shoulder dislocation Impression dictated by: Paul Jung M.D.09/30/2024 7:42 AM Dictation Location: [facility]20 Transcribed By: [facility] 09/30/24 0742 Dictated By: Paul Jung DO 09/30/24 0742 Signed By: 09/30/[address] [facility] Physician GroupXR shoulder LT 1Von 13-90-2584GM shoulder LT 1VST. [facility]'S [facility] Main [place] [id number] XRay Report Signed Patient: Binta Eldridge MR#: [id number] 47 : 1960 Acct:[id number] Age/Sex: 64 / F ADM Date: 09/30/24 Loc: ER Room: Type: [facility] ER Attending Dr: Copies to: Andre Dawn DO Ordering Provider: Andre Dawn DO Date of Service: 09/30/24 XR/XR shoulder LT 1V: POST REDUCTION Single view left shoulder post reduction Adequate bony alignment. XR/XR shoulder LT 1V IMPRESSION: Adequate reduction. Impression dictated by: Paul Jung M.D.09/30/2024 9:14 AM Dictation Location: [facility]20 Transcribed By: [facility] 09/30/24 0914 Dictated By: Paul Jung DO 09/30/24 0914 Signed By: 09/30/[address] XR shoulder LT min 2V*on 38-16-3636MI shoulder LT min 2V*[address] [address] XRay Report Signed Patient: Binta Eldridge MR#: [id number] 47 : 1960 Acct:[id number] Age/Sex: 64 / F ADM Date: 09/30/24 Loc: ER Room: Type: [facility] ER Attending Dr: Copies to: Andre Dawn DO Ordering Provider: Andre Dawn DO Date of Service: 09/30/24 XR/XR shoulder LT min 2V*: Extremity Injury, Upper 2 views left shoulder plain film HISTORY: Fell yesterday. Left shoulder pain COMPARISON: None ACUTE FINDINGS: Anterior dislocation. No acute displaced fracture DEGENERATIVE CHANGE: Unremarkable SOFT TISSUE FINDINGS: Unremarkable JOINT EFFUSION: None POSTOP CHANGES: None BONY MINERALIZATION: Adequate XR/XR shoulder LT min 2V* IMPRESSION: Anterior shoulder dislocation. . Impression dictated by: Paul Jung M.D.09/30/2024 7:42 AM Dictation Location: [facility] Transcribed By: [facility] 09/30/24 0742 Dictated By: Paul Jung DO 09/30/24 0738 Signed By: 09/30/[address] [facility] Physician GroupSuperficial Wound Cultureon 11-23-7464Niozirwbixk Wound CultureMID-OCCIPITAL SCALP ORGANISM: Klebsiella oxytoca (O:KLEOXY) Quantity of Growth Moderate Growth ORGANISM: Strep agalactiae - (group b) (O:STRAGA) Quantity of Growth Heavy Growth Aerobic YOHAN Charge (NMIC56) SUSCEPTIBILITY ORGANISM: O:KLEOXY ANTIBIOTIC INTERPRETATION YOHAN Amikacin S <16 Amoxacillin/K Clavulanate S <8 Ampicillin/Sulbactam S 88/4 Aztreonam S <4 Cefazolin R >16 Cefepime S <2 Ceftazidime S <1 Ceftazidime/Avibactam S <4 Ceftolozane/Tazobactam S <2 Ceftriaxone S <1 Cefuroxime S <4 Ciprofloxacin S <0.25 Ertapenem S <0.5 Gentamicin S <2 Levofloxacin S <0.5 Meropenem S <1 Meropenem/Vaborbactam S <2 Piperacillin/Tazobactam S <8 Tetracycline S <4 Tigecycline S <2 Tobramycin S <2 Trimethoprim/Sulfamethoxazole S <0.5 S = SUSCEPTIBLE I = INTERMEDIATE R = RESISTANT BLANK = DATA NOT AVAILABLE, OR DRUG NOT ADVISABLE OR TESTED R* = RESISTANCE DUE TO EXTENDED SPECTRUM BETA-LACTAMASES ESBL = EXTENDED SPECTRUM BETA-LACTAMASE TFG = THYMIDINE-DEPENDENT STRAIN VALENTINO = BETA-LACTAMASE POSITIVE IB = INDUCIBLE BETA-LACTAMASE. APPEARS IN PLACE OF 'S' WITH SPECIES KNOWN TO POSSESS INDUCIBLE BETA-LACTAMASES. POTENTIALLY THEY MAY BECOME RESISTANT TO ALL B-LACTAM DRUGS. PERFORMED BY: [facility] [address] [place] [address] PATHOLOGIST WAREHOUSE TECHNICIAN YISSEL SANDOVAL M.D.NormalHalifax Health Medical Center Of Daytona Beach Physician GroupComment on above: Performed By: #### CUSUP #### [facility] [address] [place] [address] USACB AUTO DIFFon 79-22-5265OONY #0.0 103/ulNormal0.0-0.1[facility] HospitalComment on above:Performed By: #### CBC #### [facility] [address] [place] [address] Dr. Maribell ElkinsBasophils/100 WBC (Bld)0.6 %Normal0.2-2.0[facility] Comment on above:Performed By: #### CBC #### [facility] [address] [place] [address] Dr. Maribell Reagan #0.1 103/ulNormal0.0-0.7The [facility] DaytonComment on above: Performed By: #### CBC #### [facility] [address] [place] [address] Dr. Maribell Tuttleosinophils/100 WBC (Bld)0.9 %Normal0.9-7.0[facility] Comment on above:Performed By: #### CBC #### [facility] [address] [place] [address] Dr. Maribell Tuttlerythrocyte distribution width (RBC) [Ratio]12.2 %Pjppeq27.0-15.0 [facility] HospitalComment on above:Performed By: #### CBC #### [facility] [address] [place] [address] Dr. Yilan ChangHematocrit (Bld) [Volume fraction]42.4 %Gmciwp47.0-48.0The [facility] DaytonComment on above:Performed By: #### CBC #### [facility] [address] [place] [address] Dr. Maribell Fragaoglobin (Bld) [Mass/Vol]14.0 g/xOXpjmqn35.0-16.0The [facility] DaytonComment on above:Performed By: #### CBC #### [facility] [address] [place] [address] Dr. Maribell Toribio #0.02 10e3/ulNormal0.00-0.03The [facility] DaytonComment on above:Performed By: #### CBC #### [facility] [address] [place] [address] Dr. Maribell Toribio %0.3 %Normal0.0-0.5The [facility] DaytonComment on above: Performed By: #### CBC #### [facility] [address] [place] [address] Dr. Maribell Musa #0.9 103/ulCritically low1.2-3.8The [facility] Comment on above:Performed By: #### CBC #### [facility] [address] [place] [address] Dr. Maribell Gottliebmphocytes/100 WBC (Bld)13.5 %Critically low20.5-60.0The [facility] DaytonComment on above:Performed By: #### CBC #### [facility] [address] [place] [address] Dr. Maribell ElkinsMANUAL DIFF REQNONormalThe [facility] DaytonComment on above: Performed By: #### CBC #### [facility] [address] [place] [address] Dr. Maribell Mcadams (RBC) [Entitic mass]32.0 yqBhldrc66.7-34.0The [facility] DaytonComment on above:Performed By: #### CBC #### [facility] [address] [place] [address] Dr. Maribell Urban (RBC) [Mass/Vol]33.0 g/pBPwvfnw30.9-35.2The [facility] DaytonComment on above:Performed By: #### CBC #### [facility] [address] [place] [address] [address] Maribell Urban (RBC) [Entitic vol]97.0 sXEupxgp18.0-99.0The [facility] DaytonComment on above:Performed By: #### CBC #### [facility] [address] [place] [address] Dr. Maribell Wise #0.7 103/ulNormal0.3-0.8The [facility] DaytonComment on above:Performed By: #### CBC #### [facility] [address] [place] [address] Dr. Maribell Diegoocytes/100 WBC (Bld)10.2 %Normal1.7-12.0The [facility] Comment on above:Performed By: #### CBC #### [facility] [address] [place] [address] Dr. Maribell Edwards #5.1 103/ulNormal1.4-6.5The [facility] DaytonComment on above:Performed By: #### CBC #### [facility] [address] [place] [address] Dr. Maribell Sousautrophils/100 WBC (Bld)74.5 %Xdiuxq69.0-75.0The [facility] DaytonComment on above:Performed By: #### CBC #### [facility] [address] [place] [address] Dr. Maribell Hortonlet mean volume (Bld) [Entitic vol]11.5 fLNormal9.5-13.5The [facility] DaytonComment on above:Performed By: #### CBC #### [facility] [address] [place] [address] Dr. Maribell ElkinsPLT204 103/mrVyufjv157-277Ihs [facility] DaytonComment on above: Performed By: #### CBC #### [facility] [address] [place] [address] Dr. Maribell ElkinsRBC4.37 106/ulNormal4.20-5.40The [facility] on above:Performed By: #### CBC #### [facility] [address] [place] [address] Dr. Maribell ElkinsWBC6.9 103/ulNormal4.0-11.0The [facility] on above: Performed By: #### CBC #### [facility] [address] [place] [address] Dr. Maribell OgID PROFILEon 21-01-3567HSCF-HDL RATIO NORMSEE [facility] HospitalComhenry [facility] on above:Result Comment: 3.3 - 4.4 LOW RISK 4.4 - 7.1 AVERAGE RISK 7.1 - 11.0 MODERATE RISK >11.0 HIGH RISKPerformed By: #### CMP, LIPID #### [facility] [address] [place] [address] Dr. Maribell Lynesterol [Mass/Vol]280 mg/dLCritically high<=200The [facility] on above:Performed By: #### CMP, LIPID #### [facility] [address] [place] [address] Dr. Maribell Lynesterol in HDL [Mass/Vol]51 mg/mRXxxcgl72-69Ort [facility] on above:Performed By: #### CMP, LIPID #### [facility] [address] [place] [address] Dr. Maribell Lynesterol in LDL [Mass/Vol]160.4 mg/dLMemorial Hospital on above:Performed By: #### CMP, LIPID #### [facility] [address] [place] [address] Dr. Maribell Devi.total/Cholesterol in HDL [Mass ratio]5.5 {ratio} NormalThe [facility] on above:Performed By: #### CMP, LIPID #### [facility] [address] [place] [address] Dr. Yilan ChangHDL NORMAL> or = 60 mg/dl - LOW CARDIOVASCULAR RISK <40 mg/dl - HIGH CARDIOVASCULAR RISKHighland District HospitalComment on above:Performed By: #### CMP, LIPID #### [facility] [address] [place], [place] [address] Dr. Maribell Mendez CALC NORMALSEE BELOWNoUniversity Hospitals Ahuja Medical CenterComment on above:Result Comment: <100 mg/dl OPTIMAL 100 - 129 mg/dl NEAR OR ABOVE OPTIMAL 130 - 159 mg/dl BORDERLINE HIGH 160 - 189 mg/dl HIGH >190 mg/dl VERY HIGH Performed By: #### CMP, LIPID #### [facility] [address] [place], [place] [address] Dr. Maribell ElkinsTriglyceride [Mass/Vol]343 mg/dLCritically high<=150The [facility] DaytonComment on above:Performed By: #### CMP, LIPID #### [facility] [address] [place], [place] [address] Dr. Maribell ElkinsVLDL CALC68.6 mg/dLNoUniversity Hospitals Ahuja Medical CenterComment on above: Performed By: #### CMP, LIPID #### [facility] [address] [place] [address] [address] Maribell ElkinsMG MAMM SCREEN KELLY W CADon 32-09-9118SK MAMM SCREEN KELLY W CAD Patient: BINTA ELDRIDGE Exam Date: 04/29/2022 : 1960 Gender:F Ordering : DR HILTON JUAREZ D.O. Admission #: [id number] Family : Order #: [id number] CLICK HERE TO VIEW EXAM RADIOLOGY REPORT [...] Treatments None Family Cancers None LOCATION: The [facility] BREAST COMPOSITION: Scattered areas fibroglandular density. FINDINGS: [...] by: Heavenly Nelson MD on 04/29/2022 at 13:13[facility] PROF 14(COMP METB)on 08-04-8281Tkdfyux [Mass/Vol]4.0 g/dLNormal3.4-5.0The [facility] DaytonComment on above:Performed By: #### CMP, LIPID #### [facility] [address] [place] [address] Dr. Maribell ElkinsAlbumin/Globulin [Mass ratio]1.2 {ratio}NormalThe [facility] DaytonComment on above:Performed By: #### CMP, LIPID #### [facility] [address] [place] [address] Dr. Maribell Wallace [Catalytic activity/Vol]76 U/AMdhjri77-548Nbb Pomerene Hospitalment on above:Performed By: #### CMP, LIPID #### [facility] [address] [place] [address] Dr. Maribell Thomas [Catalytic activity/Vol]37 U/VXejhzj44-21Ycm [facility] on above:Performed By: #### CMP, LIPID #### [facility] [address] [place] [address] Dr. Maribell Matthews gap [Moles/Vol]9.1 mmol/LNormalThe [facility] DaytonComment on above:Performed By: #### CMP, LIPID #### [facility] [address] [place] [address] Dr. Maribell Conde [Catalytic activity/Vol]20 U/RIjkkxs72-93Vxp [facility]omerene Hospitalment on above:Performed By: #### CMP, LIPID #### [facility] [address] [place] [address] Dr. Maribell ElkinsBilirubin [Mass/Vol]0.5 mg/dLNormal0.2-1.0The [facility] Comment on above:Performed By: #### CMP, LIPID #### [facility] [address] [place] [address] [address] Maribell ElkinsCalcium [Mass/Vol]9.1 mg/dLNormal8.5-10.1The [facility] Comment on above:Performed By: #### CMP, LIPID #### [facility] [address] [place] [address] [address] Maribell ElkinsChloride [Moles/Vol]104 mmol/IKpdroy02-457Itk [facility] Comment on above:Performed By: #### CMP, LIPID #### [facility] [address] [place] [address] Dr. Maribell ElkinsCO2 [Moles/Vol]27.6 mmol/VCpwptp06.0-32.0[facility] Comment on above:Performed By: #### CMP, LIPID #### [facility] [address] [place] [address] Dr. Maribell ElkinsCreatinine [Mass/Vol]1.62 mg/dLCritically high0.55-1.02[facility] HospitalComment on above:Performed By: #### CMP, LIPID #### [facility] [address] [place] [address] Dr. Maribell TuttleGFR-AF IUOUKQTN58 mL/min/1.09f1Ikecewbzgf low>=60The [facility] DaytonComment on above:Performed By: #### CMP, LIPID #### [facility] [address] [place] [address] Dr. Maribell TuttleGFR-NON AF QEIMMSMB55 mL/min/1.05o7Ckpqripxyf low>=60The [facility] DaytonComment on above:Performed By: #### CMP, LIPID #### [facility] [address] [place] [address] Dr. Maribell ElkinsGlobulin (S) [Mass/Vol]3.4 g/dLNormalThe [facility] DaytonComment on above:Performed By: #### CMP, LIPID #### [facility] [address] [place] [address] Dr. Yilan ChangGlucose [Mass/Vol]108 mg/dLCritically fpyy23-641Ezq [facility] DaytonComment on above:Performed By: #### CMP, LIPID #### [facility] [address] [place] [address] Dr. Maribell ElkinsPotassium [Moles/Vol]4.7 mmol/LNormal3.5-5.1The [facility] Comment on above:Performed By: #### CMP, LIPID #### [facility] [address] [place] [address] Dr. Maribell ElkinsProtein [Mass/Vol]7.4 g/dLNormal6.4-8.2The [facility] Comment on above:Performed By: #### CMP, LIPID #### [facility] [address] [place] [address] Dr. Maribell ElkinsSodium [Moles/Vol]136 mmol/WHnesxs394-318Zyx [facility] Comment on above:Performed By: #### CMP, LIPID #### [facility] [address] [place] [address] Dr. Maribell ElkinsUrea nitrogen [Mass/Vol]24.0 mg/dLCritically high7.0-18.0The [facility] DaytonComment on above:Performed By: #### CMP, LIPID #### [facility] [address] [place] [address] Dr. Maribell Luevano nitrogen/Creatinine [Mass ratio]14.8 mg/mgNormalThe [facility] DaytonComment on above:Performed By: #### CMP, LIPID #### [facility] [address] [place] [address] Dr. Maribell Wahl AUTO DIFFon 05-61-8608QPAS #0.1 103/ulNormal0.0-0.1[facility] HospitalComment on above:Performed By: #### CBC #### [facility] [address] [place] [address] Dr. Maribell ElkinsBasophils/100 WBC (Bld)0.9 %Normal0.2-2.0[facility] Comment on above:Performed By: #### CBC #### [facility] [address] [place] [address] [address] Maribell Reagan #0.1 103/ulNormal0.0-0.7The [facility] DaytonComment on above: Performed By: #### CBC #### [facility] [address] [place] [address] Dr. Maribell Tuttleosinophils/100 WBC (Bld)1.6 %Normal0.9-7.0The [facility] Comment on above:Performed By: #### CBC #### [facility] [address] [place] [address] Dr. Maribell Tuttlerythrocyte distribution width (RBC) [Ratio]12.9 %Uexkyn03.0-15.0 The [facility] DaytonComment on above:Performed By: #### CBC #### [facility] [address] [place] [address] Dr. Maribell ElkinsHematocrit (Bld) [Volume fraction]41.9 %Qcxyif32.0-48.0The [facility] DaytonComment on above:Performed By: #### CBC #### [facility] [address] [place] [address] Dr. Maribell ElkinsHemoglobin (Bld) [Mass/Vol]13.7 g/aSFyqcvn10.0-16.0The [facility] DaytonComment on above:Performed By: #### CBC #### [facility] [address] [place] [address] Dr. Maribell Toribio #0.01 10e3/ulNormal0.00-0.03The [facility] DaytonComment on above:Performed By: #### CBC #### [facility] [address] [place] [address] Dr. Maribell Toribio %0.2 %Normal0.0-0.5The [facility] DaytonComment on above: Performed By: #### CBC #### [facility] [address] [place] [address] Dr. Maribell GottliebMPH #2.0 103/ulNormal1.2-3.8The [facility] DaytonComment on above:Performed By: #### CBC #### [facility] [address] [place] [address] Dr. Maribell Gottliebmphocytes/100 WBC (Bld)35.9 %Enycvk93.5-60.0The [facility] Hospitalment on above:Performed By: #### CBC #### [facility] [address] [place] [address] Dr. Maribell Ambrose DIFF REQNONormalThe [facility] DaytonComment on above: Performed By: #### CBC #### [facility] [address] [place] [address] Dr. Maribell Urban (RBC) [Entitic mass]31.2 pfGbjbco46.7-34.0The [facility] DaytonComment on above:Performed By: #### CBC #### [facility] [address] [place] [address] Dr. Maribell Urban (RBC) [Mass/Vol]32.7 g/sTTgsyvt74.9-35.2The [facility] DaytonComment on above:Performed By: #### CBC #### [facility] [address] [place] [address] Dr. Maribell Urban (RBC) [Entitic vol]95.4 pIGfkfrz18.0-99.0The [facility] DaytonComment on above:Performed By: #### CBC #### [facility] [address] [place] [address] Dr. Maribell Wise #0.6 103/ulNormal0.3-0.8The [facility] DaytonComment on above:Performed By: #### CBC #### [facility] [address] [place] [address] Dr. Maribell Diegoocytes/100 WBC (Bld)11.0 %Normal1.7-12.0The [facility] Comment on above:Performed By: #### CBC #### [facility] [address] [place] [address] Dr. Maribell Edwards #2.8 103/ulNormal1.4-6.5The [facility] HospitalComment on above:Performed By: #### CBC #### [facility] [address] [place] [address] [address] Maribell ElkinsNeutrophils/100 WBC (Bld)50.4 %Lxcofr86.0-75.0The [facility] DaytonComment on above:Performed By: #### CBC #### [facility] [address] [place] [address] [address] Maribell ElkinsPlatelet mean volume (Bld) [Entitic vol]10.8 fLNormal9.5-13.5The [facility] DaytonComment on above:Performed By: #### CBC #### [facility] [address] [place] [address] [address] Maribell ElkinsPLT187 103/ywAtminu445-290Uux [facility] DaytonComment on above: Performed By: #### CBC #### [facility] [address] [place] [address] [address] Maribell ElkinsRBC4.39 106/ulNormal4.20-5.40The [facility] DaytonComment on above:Performed By: #### CBC #### [facility] [address] [address] [address] Maribell ElkinsWBC5.6 103/ulNormal4.0-11.0The [facility] DaytonComment on above: Performed By: #### CBC #### [facility] [address] [address] [address] Maribell Elkins Vital Signs Date TimeVital SignValuePerforming RfmmuboovNocgttkr28-40-6732 14:Body kiceyr323.08 cmBenjamin Ball DO Work Phone: [facility]10-22-2025 14: Body mass index (BMI) [Ratio]25.2 kg/o8Vtngcbnc Ball DO Work Phone: [facility]10-22-2025 14: Body fiqrny13.05 kgBenjamin Ball DO Work Phone: [facility]10-22-2025 14:10-0400 Diastolic blood mewfqomp08 mm[Hg]Hilton Ball DO Work Phone: [phone] [place], [place] 0125910-22-2025 14:10-0400 Heart rate94 /minBenjamin Ball DO Work Phone: [phone] [place], [place] 012[address]10-22-2025 14:10-0400 Respiratory rate20 /minBenjamin Ball DO Work Phone: [phone] [place], [place] 012[address]10-22-2025 14:10-0400 Systolic blood nqiozisn523 mm[Hg]Hilton Ball DO Work Phone: [phone] [place], [place] 9970405-27-2025 08:50-0400 Body rypbrh636.08 cmBenjamin Ball DO Work Phone: [phone] [place], [place] 9970405-27-2025 08:50-0400 Body mass index (BMI) [Ratio]24 kg/o6Loqiuqti Ball DO Work Phone: [phone] [place], [place] 9970405-27-2025 08:50-0400 Body njzapu88 kgBenjamin Ball DO Work Phone: [phone] [place], [place] 9970405-21-2025 13:36-0400 Body .3 cmBeck Tito DPM Work Phone: [phone] CenterUgaqnqmwel77-30-6097 13:36-0400Body mass index (BMI) [Ratio]22.99 kg/i6HhqkskcxBeck Francis DPM Work Phone: [facility] CenterVfxtudomfy72-82-1321 13:36-0400Body isdawj98.9 kg Beck Brown DPM Work Phone: [facility] CenterFvakribczz35-20-0469 13:36-0400Respiratory rate16 /minBeck Francis DPM Work Phone: [facility] CenterLxdnkbcnow08-50-9503 13:28-0400Body ryjtsz02.31 kgBenjamin Ball DO Work Phone: [phone]04-30-2025 13:28-0400 Diastolic blood mm[Hg]Hilton Ball DO Work Phone: [phone])[address] [place], [place] 9970404-30-2025 13:28-0400 Heart nelb521 /minBenjamin Ball DO Work Phone: 1(419)[address] [place], [place] 9970404-30-2025 13:28-0400 Respiratory rate12 /minBenjamin Ball DO Work Phone: 1(419)[address] [place], [place] 9970404-30-2025 13:28-0400 SaO2% (BldA) [Mass fraction]100 %Hilton Ball DO Work Phone: 1(419)[address] [place], [place] 9970404-30-2025 13:28-0400 Systolic blood jwxbcgki742 mm[Hg]Hilton Ball DO Work Phone: 1(419)[address] [place], [place] 9970404-12-2025 09:15-0400 Diastolic blood hkafvetg99 mm[Hg]Hilton Ball DO Work Phone: 1419)[address] [place], [place] 9970404-12-2025 09:15-0400 Heart rate91 /minBenjamin Ball DO Work Phone: 1(419)[address] [place], [place] 9970404-12-2025 09:15-0400 Respiratory rate18 /minBenjamin Ball DO Work Phone: 1(419)[address] [place], [place] 9970404-12-2025 09:15-0400 SaO2% (BldA) [Mass fraction]100 %Hilton Ball DO Work Phone: [phone])[address] [place], [place] 9970404-12-2025 09:15-0400 Systolic blood oxwgbzyh628 mm[Hg]Ihlton Ball DO Work Phone: 1(419)[address] [place], [place] 9970404-12-2025 08:56-0400 Inhaled oxygen flow rate2 L/minBenjamin Ball DO Work Phone: [phone])[address] [place], [place] 9970404-12-2025 06:57-0400 Body xaujyowuash93.6 [degF]Hilton Ball DO Work Phone: [phone])[address] [place], [place] 9970404-12-2025 06:56-0400 Body .62 cmBenjamin Ball DO Work Phone: [facility]04-12-2025 06:56-0400 Body tuhqwl97.85 kgBenjamin Ball DO Work Phone: [facility]02-26-2025 13:44-0500 Body lnfeiv804.3 cmNiccaitlyn Brown DPM Work Phone: [facility] CenterLspwfsgpnz59-53-3323 13:44-0500Body mass index (BMI) [Ratio]22.99 kg/x7Yepqelwc Brown DPM Work Phone: [facility] CenterGguegkwuwc44-72-9384 13:44-0500Body hujxki95.9 kg Beck Francis DPM Work Phone: [facility] CenterKsvyhhxkjj37-71-1576 13:44-0500Respiratory rate18 /minNicholmalika Brown DPM Work Phone: [facility] CenterAuosykzvan61-00-5700 13:48-0500Body hwoevu772.3 cmNiccaitlyn Brown DPM Work Phone: [facility] CenterMmddavmgka64-61-5759 13:48-0500Body mass index (BMI) [Ratio]22.99 kg/k2Cffustnh Brown DPM Work Phone: [facility] CenterZgiikxphmz86-46-7342 13:48-0500Body icernx74.9 kg Beck Francis DPM Work Phone: [phone] [place], [place] [address]Eiyduuswgg50-38-8418 13:48-0500Respiratory rate16 /minNiccaitlyn Brown DPM Work Phone: [facility] CenterYvjiuzszwk93-98-1188 13:33-0400Body qpsuae114.08 cmOhio[facility]10-02-2024 13:33-0400Body mass index (BMI) [Ratio]24.5 kg/d0PstnvaqzyOhiohealth [facility] Hospital10-02-2024 13:33-0400Body hetric89.75 kgOhio[facility] Hospital10-02-2024 13:33-0400Diastolic blood woqcoobx68 mm[Hg][facility]10-02-2024 13:33-0400 Heart rate92 /[facility]10-02-2024 13:33-0400 Respiratory rate16 /[facility]10-02-2024 13:33-0400 Systolic blood svaimtgu958 mm[Hg][facility]09-25-2024 13:44-0400Body bqisjz435.3 cmBeck Francis DPM Work Phone: [facility] CenterTrqsdmoooc55-03-9974 13:44-0400Body mass index (BMI) [Ratio]22.99 kg/v4BbalkjudBeck Francis DPM Work Phone: [facility] CenterZklajhpbbf59-96-1309 13:44-0400Body vtfyfu89.9 kg Beck Francis DPM Work Phone: [facility] CenterDiyeexektr95-15-9447 13:44-0400Diastolic blood maxhpwmm01 mm[Hg]Beck Francis DPM Work Phone: [facility] CenterXxlwxxcele51-07-1114 13:44-0400Heart rate75 /min Beck Francis DPM Work Phone: [facility] CenterOzniwkirqu32-07-1110 13:44-0400Respiratory rate18 /minBeck Francis DPM Work Phone: [facility] CenterMcjmrdvdtx98-81-4929 13:44-0400Systolic blood ffuqxzhv637 mm[Hg]Beck Francis DPM Work Phone: [facility] CenterOfsgdtouxl65-13-7592 17:05-0400Body .1 cmDO Hilton Ball Work Phone: [facility]06-19-2023 17:05-0400 Body kolnziyvovy28.6 [degF]DO Hilton Ball Work Phone: [facility]06-19-2023 17:05-0400 Body lsiurg98.98 kgDO Hilton Ball Work Phone: [facility]06-19-2023 17:05-0400 Diastolic blood adkvrscl15 mm[Hg]DO Hilton Ball Work Phone: [facility]06-19-2023 17:05-0400 Heart ktiy173 /Cortes Juarez Work Phone: [facility]06-19-2023 17:05-0400 Respiratory rate16 /Cortes Juarez Work Phone: [facility]06-19-2023 17:05-0400 SaO2% (BldA) [Mass fraction]96 %DO Hilton Juarez Work Phone: [facility]06-19-2023 17:05-0400 Systolic blood zsnrymna394 mm[Hg]DO Hilton Juarez Work Phone: [facility] Encounters Encounter DateEncounter TypeCare ProviderFacilityStart: 04-11-2025 End: 81-54-8521coyofsylrdKlzlemgz Ball DO Work Phone: [facility] 04-[facility]-2025 End: 28-62-6971Pgnevba encounter procedureBenjamin Ball DO-[facility] Work Phone: Start: 12-26-2024 End: 58-65-8102vxjwaxgyclMlqxzctn Ball DO Work Phone: [facility] Work Phone: Start: 12-26-2024 End: 69-49-2387Nwsqowl encounter procedureMichael Krueger MD-[facility] Work Phone: Start: 12-20-2024 End: 22-68-7444wmblpckvxzCaunwl OlexaFacility:[facility] Start: 07-66-5240Pdzxgcrrtb RecurringMichael Krueger MD-Physical Therapy [place] CreekStart: 11-14-2024 End: 19-13-7532kmedscuygnFaplncmn Ball DO Work Phone: [facility] Work Phone: Start: 11-14-2024 End: 37-33-8818Ebraoya encounter procedureBenjamin Ball DO Work Phone: [facility] Work Phone: Start: 11-08-2024 End: 37-89-5819Ciykve Hiro Francis DPM Work Phone: [facility] [place] PODStart: 11-08-2024 End: 15-60-3550Mnofta Hiro Francis DPM Work Phone: [facility] [place] PODStart: 11-08-2024 End: 00-40-5612Ealkoju encounter procedureJuanamalika Oleary Tito DPM Work Phone: [facility] [place] PODComment on above:Pain due to onychomycosis of toenails of both feet (Primary Dx)Start: 11-08-2024 End: 94-44-8599kaqcqyaljkNJGBGHCL A BROWNNot AvailableStart: 10-26-2024 End: 48-49-2641atmbrgnlqpSkcgdqyp Ball DO Work Phone: [facility] Work Phone: Start: 10-26-2024 End: 19-59-8114Jlrgtgu encounter procedureBenanalia Ball DO Work Phone: [facility] Work Phone: Start: 00-93-0509Lvd-patient / Non-visitBenannabellemin Ball DO Work Phone: [facility] GroupNorth[facility] Work Phone: Start: 10-18-2024 End: 48-43-4898lvodlhhiehVsifqwvx Ball DO Work Phone: [facility] Work Phone: Start: 10-18-2024 End: 86-39-8586Vmxkmrw encounter procedureHilton Juarez DOSt. Luke'[facility] Physician GroupHop[facility] Work Phone: Start: 10-05-2024 End: 26-24-8980Detzzeg encounter procedureThmariah Krueger [facility] Work Phone: Start: 10-04-2024 End: 87-56-4382Jvppfjr encounter procedureBenanalia Ball DO Work Phone: [facility]-CT [address] Work Phone: Start: 10-04-2024 End: 55-07-2446ovqdgjavmkFayjhzmz Ball DO Work Phone: [facility] Work Phone: Start: 10-03-2024 End: 18-33-2264qjkihupazvIvhxzzig Ball DO Work Phone: [facility] Work Phone: Start: 10-03-2024 End: 63-29-9057Qsoghrf encounter procedureBenanalia Ball DO Work Phone: [facility] Work Phone: Start: 03-81-7403Afq-patient / Non-visitBenanalia Ball DO Work Phone: [facility] Work Phone: Start: 09-30-2024 End: 92-97-6615Jbtgiqtgf department patient visitBenanalia Ball DO Work Phone: [facility]-Emergency Room Work Phone: Start: 08-16-2024 End: 22-12-0936Uxckdo flowsChris Francis DPM Work Phone: [facility] [place] PODStart: 08-16-2024 End: 14-37-3680Vkyhhw Hiro Francis DPM Work Phone: [facility] [place] PODStart: 08-16-2024 End: 84-85-4266ovqzcfsoykFIHRUWBD A BROWNNot AvailableStart: 08-16-2024 End: 19-03-4309Dcsfuad encounter procedureBeck Francis DPM Work Phone: [facility] PODComment on above:Pain due to onychomycosis of toenails of both feet (Primary Dx); Acquired deformity of left toeStart: 06-07-2024 End: 54-75-0657Ezummj Hiro Francis DPM Work Phone: [facility] [place] PODStart: 06-07-2024 End: 63-49-1054Iwvovn flowshCris Francis DPM Work Phone: [facility] PODStart: 06-07-2024 End: 41-64-6423Shrcppo encounter procedureBeck Francis DPM Work Phone: [facility] PODComment on above:Pain due to onychomycosis of toenails of both feet (Primary Dx)Start: 06-07-2024 End: 86-67-7967mtkkucsxbgTCOGJEFU A BROWNNot AvailableStart: 05-03-2024 End: 84-28-6526zctoiwbvvhCsuetm M [facility] Work Phone: Start: 05-03-2024 End: 75-48-1800Kbmryruq Nelli Calderón MD Work Phone: [facility]-Lab [address] [place] Work Phone: Start: 03-22-2024 End: 80-46-2755gllqclorsmTebvfkwwwParkwood Hospital Work Phone: Start: 03-22-2024 End: 66-45-2225Djsvbft encounter procedureSt. [facility] Work Phone: Start: 86-24-3856Wigiohg encounter procedureMiddletown Hospitaltart: 03-15-2024 End: 84-08-7969Pzhmml Hiro Francis DPM Work Phone: [facility] [place] PODStart: 03-15-2024 End: 74-03-7828Jxkyzv flowsheetHeathjocelynmalika Oleary Tito DPM Work Phone: [facility] [place] PODStart: 03-15-2024 End: 12-93-4594fkkpxyygetDMJKTYTQ A BROWNNot AvailableStart: 03-15-2024 End: 20-48-4250Ozwgnrj encounter procedureJuanamalika Francis DPM Work Phone: [facility] [place] PODComment on above:Onychomycosis (Primary Dx); Toe pain, bilateral; Acquired deformity of left toeStart: 01-05-2024 End: 16-61-4250bzagzayvzvXSXKIXBA A BROWNNot AvailableStart: 04-21-2023 End: 04-45-4203ktagubndwlBljryqip Ball Other [employer] Other Start: 96-23-4388Akdxkygdy encounterBenjamin BallFPG Ball Medical ClinicStart: 12-07-2022 End: 53-14-8736Pzutukmbv department patient visitDO Hilton Juarez Work Phone: [facility]-Emergency Room Work Phone: Start: 10-14-2022 End: 51-35-8260vrkxgqubnzVuukmpua Ball Other [employer] [facility] [employer] Other Start: 43-93-9183Anzrczikh encounterBenjamin BallFPG Ball Medical ClinicStart: 09-10-2022 End: 99-59-8144xbryckejprDykbgtjm Ball Other [employer] Other Start: 36-57-7268Ooeznbfwc encounterBenjamin BallFPG Ball Medical ClinicStart: 09-08-2022 End: 95-82-0314bvomcybarzCvfsqudu Ball Other [employer] Other Start: 34-55-1987Whjyvduwl encounterBenjamin BallFPG [facility] Medical ClinicStart: 08-10-2022 End: 40-43-0158cftypeqcnnPvrcdjws Ball Other [facility] [employer] Other Start: 76-92-5895Szmvsywxt encounterBenanalia JarquinG [facility] Medical ClinicStart: 04-29-2022 End: 32-19-4785uueieadgxuDN HILTON BALLFacility:V6Tjqik: 05-28-2021 End: 98-83-0405fimzoptyncGG HILTON BALLFacility:H1 Procedures DateProcedureProcedure DetailPerforming ClinicianStart: 13-80-6574IW of left shoulderBenjamin Ball DO Work Phone: Start: 56-94-2256Hcbbc X-ray of left shoulderBenjamin Ball DO Work Phone: Start: 33-46-5438Qpvcv X-ray of left shoulderBenjamin Ball DO Work Phone: Start: 03-55-8446Cqqot X-ray of left humerusBenjamin Ball DO Work Phone: Start: 01-76-8653Kajiq X-ray of left shoulderBenjamin Ball DO Work Phone: Start: 00-10-7601Z-ray of left ankleDO Hilton Ball Work Phone: Plan of Treatment DateCare ActivityDetailAuthorStart: 01-17-2025 End: 57-80-6822Iiakxwe encounter rzwwsapva46/30/2025 1:30 PM EDT Procedure Visit [facility] [place] [facility] [address] [place] [phone] Beck Francis DPM [address] [address] [facility] [place] PODStart: 11-08-2024 End: 41-34-1716Jhoxqre encounter procedureNOMS [place] PODComment on above:Pain due to onychomycosis of toenails of both feet (Primary Dx)Start: 28-06-0809Zvcse X- ray of left shoulderXR shoulder LT min 2V*[facility] Start: 61-15-3774KX Shoulder - left ViewsMiddletown Hospitaltart: 08-18-2024 End: 49-82-8851Afszfhl encounter jisajnwbg18/28/2025 1:50 PM EST Procedure Visit [facility] [place] [facility] [address] [place] [phone] Beck Francis, DPM [address] [address] [facility] [place] PODStart: 06-07-2024 End: 37-65-7025Cjhcede encounter agkwgcwnf67/18/2024 1:50 PM EST Procedure Visit [facility] [place] [facility] [address] [place] [phone] Beck Francis, DPM [address] [address] Pain due to onychomycosis of toenails of both feet (Primary Dx)[facility] [place] PODComment on above:Pain due to onychomycosis of toenails of both feet (Primary Dx)Start: 48-90-2354Asjsjmmnrytn Vaccine: 65+ Years (1 of 1 - PCV) Pneumococcal Vaccine: 65+ Years (1 of 1 - PCV)[facility] HealthcareStart: 05-03-2024 Superficial Wound CultureSuperficial Wound CultureMiddletown Hospitaltart: 99-15-4135Wcxqukjpv vaccinationInfluenza Vaccine (#1)[facility] HealthcareStart: 28-60-5361Wzzmstnlm for malignant neoplasm of breastMammogram [facility] HealthcareStart: 24-33-6264Nguwbljih for malignant neoplasm of cervixNOMS HealthcareStart: 49-34-0907Xdgyzvcbe for malignant neoplasm of cervixPap Smear [facility] HealthcareStart: 14-55-4762Mzbauwxoi for malignant neoplasm of colonNOMS HealthcareComprehensive metabolic 2000 panel - Serum or [facility] CenterComprehensive metabolic 2000 panel - Serum or PlasmaOhiohealth Shelby HospitalCT Shoulder - left WO contrastOhiohealth Shelby HospitalMG Breast - bilateral ScreeningOhiohealth Shelby HospitalMG Breast - bilateral ScreeningOhiohealth Shelby HospitalPatient EducationAdena Regional [facility] Work Phone: Patient referralAdena Regional Medical [facility] Work Phone: [facility] Immunizations Immunization DateImmunizationNotesCare NzbubhguScbljepf11-17-8232qaspdzymr, high dose seasonal, preservative-freeBenjamin Ball DO Work Phone: [facility]07-08-2025COVID-19 (PFIZER) 12Y and olderBenjamin Ball DO Work Phone: [facility]04-30-2025zoster vaccine recombinantBenjamin Ball DO Work Phone: [facility]11-20-2024COVID-19 (NOVAVAX) 12Y and olderBenjamin Ball DO Work Phone: [facility]11-20-2024 Pneumococcal Conjugate Vaccine, 20 valentBenjamin Ball DO Work Phone: [facility]11-20-2024zoster vaccine recombinantBenjamin Ball DO Work Phone: [facility]10-02-2024influenza, seasonal, injectable, preservative freeRobyn Calderón MD Work Phone: [facility]11-01-2023COVID-19 (MODERNA) 12Y and olderBenjamin Ball DO Work Phone: [facility]10-20-2023influenza, injectable, quadrivalent, preservative freeBenjamin Ball DO Work Phone: [facility]10-20-2023influenza virus vaccine, unspecified Lyric Francis DPM Work Phone: [facility] CenterVhwfvbcazs59-19-2740deawmknmq virus vaccine, split virus (incl. purified surface antigen)Hilton Juarez Other [place] Other [id number] virus vaccine, unspecified formulationOhiohealth Shelby Hospital10-26-2022Influenza, injectable, Madin [place] Canine Kidney, preservative free, quadrivalentBenjamin Ball DO Work Phone: [facility]01-05-2022COVID-19 mRNA-1274 (Moderna)Hilton Juarez DO Work Phone: [facility]10-20-2021influenza virus vaccine, split virus (incl. purified surface antigen)Hilton Juarez Other [place] [employer] Other 10547501-20-2211terzmdqla virus vaccine, unspecified formulationOhiohealth Shelby Hospital10-20-2021Influenza, injectable, Madin [place] Canine Kidney, preservative free, quadrivalentBenjamin Ball DO Work Phone: [facility]05-11-2021COVID-19 mRNA-127 (Moderna)Hilton Juarez DO Work Phone: [facility]04-23-2021COVID-19 mRNA-1272 (Moderna)Hilton Larry DO Work Phone: [facility]09-23-2020influenza virus vaccine, split virus (incl. purified surface antigen)Hilton Juarez Other [place] [employer] Other [id number] virus vaccine, unspecified formulationOhiohealth Shelby Hospital09-13-2019Influenza, injectable, Madin [place] Canine Kidney, quadrivalent with preservativeBenjamin Ball DO Work Phone: [facility]09-20-2018influenza virus vaccine, split virus (incl. purified surface antigen)Hilton Juarez Other [place] [employer] Other [id number] virus vaccine, unspecified formulationOhiohealth Shelby Hospital09-20-2018Influenza, injectable, Madin [place] Canine Kidney, quadrivalent with preservativeBenjamin Ball DO Work Phone: [facility]09-21-2017tetanus and diphtheria toxoids, adsorbed, preservative free, for adult use (5 Lf of tetanus toxoid and 2 Lf of diphtheria toxoid)Hilton Juarez Other [facility]09-09-2016tetanus and diphtheria toxoids, adsorbed, preservative free, for adult use (5 Lf of tetanus toxoid and 2 Lf of diphtheria toxoid)Hilton Juarez Other [facility]10-28-2015influenza, seasonal, injectable, preservative freeBenjamin Ball DO Work Phone: [facility]10-27-2014influenza, injectable, quadrivalent, preservative freeBenjamin Ball DO Work Phone: [facility]10-17-2014tetanus and diphtheria toxoids, adsorbed, preservative free, for adult use (5 Lf of tetanus toxoid and 2 Lf of diphtheria toxoid)Hilton Juarez Other [facility] Payers DatePayer CategoryPayerPolicy [id number]-pay2024Medicare (Managed Care)[employer] .[id number] 2024Medicare [id number] [id number] [id number] [id number] 2.16.840.1.076552.3.57[id number] 2.840.1.236879.3.57[id number] 2.840.1.256713.3.57[id number] 2.840.1.489812.3.57[id number] 2.840.1.958832.3.57[id number] 2.840.1.634321.3.57[id number] 2.840.1.05[id number] 2.840.1.636979.3.579.2.531 [id number] 2.16.840.1.9[id number] 2.16.840.1.7[id number] 2.16.840.1.022172.3.579.2.531 [id number] 2.16840.1.109428.3.579.2.531 Social History DateTypeDetailFacilityStart: 03-15-2024 End: 70-76-7023Blm Assigned At [facility] [employer] Other Start: 12-07-2022 End: 29-92-1210Jscvezh smoking status NHISNever smoked tobacco (finding) [facility]tart: 36-68-9249Gni Assigned At [facility]FeR[facility] Hospitaltart: 05-04-2024 End: 98-51-9433SlxZufqyy (finding)[facility]tart: 32-57-4176Votjnok use and exposureSmokeless tobacco non-userNOMS Healthcare Start: 03-15-2024 End: 90-26-6567Yjrprgzln beverage intakeLifetime non-drinker (finding)[facility] HealthcareStart: 03-15-2024 End: 42-24-8567Giquucr of Social functionNOMS HealthcareStart: 02-57-3010Pnk assigned at [facility] healthNot on fileNOMS HealthcareNEGATED: Highlighted rowStart: NINF History of tobacco usePassive smokerNOTN Healthcare Clinical Notes 08-10-2022 to 04-11-2025 Note Date & CnkaIlweAqmhedif37-55-1120 Evaluation note* Diagnosis Onset Date Resolution Status Admit Date Anemia acuteOctober 2024 1:46pmElevated cholesterolacuteOctober 2024 1:46pm Hx of goutacuteOctober 2024 1:46pmHypertensionacuteOctober 2024 1:46pmMCI (mild cognitive impairment)acuteOctober 2024 1:46pmMedicare annual wellness visit, subsequentacuteOctober 2024 1:46pmScalp ulceration acuteOctober 2024 1:46pmScreening mammogram for breast canceracuteOctober 2024 1:46pm [facility] Work Phone: 1(605) 436-597207-08-2025 Evaluation note* Diagnosis Onset Date Resolution Status Admit Date Anterior dislocation of left shoulder acuteJuly 2024 8:52am [facility] Work Phone: 1(558) 405-392105-21-2025 History of Present illness Narrative* Beck A Tito, MIGUEL - 11/08/2024 1:30 PM EDT Patient: Binta Eldridge : 1960 PCP: Hilton Juarez, DO SUBJECTIVE This is a 64 y.o. female that presents today with a CC of elongated, thick nails. Pt states nails have been elongated and thick for many years and cause pain with ambulation in shoegear. Pt has tried previous treatment with minimal relief. Pt presents today for nail care and treatment. Patient is hard of hearing and poor historian Allergies: No Known Allergies Past Medical History: Past Medical History: Diagnosis Date [employer] [place] (hard of hearing) Hypertension (CMS/HCC) OM (onychomycosis) Medications: Current Outpatient Medications: allopurinol (Zyloprim) 100 MG tablet, , Disp: , Rfl: lisinopril 10 MG tablet, , Disp: , Rfl: Social History: Social History Socioeconomic History Marital status: Unknown Spouse name: Not on file Number of children: Not on file Years of education: Not on file Highest education level: Not on file Occupational History Not on file Tobacco Use Smoking status: Never Passive exposure: Never Smokeless tobacco: Never Vaping Use Vaping status: Unknown Substance and Sexual Activity Alcohol use: Never Drug use: Never Sexual activity: Defer Partners: Decline to Answer Other Topics Concern Not on file Social History Narrative Not on file Social Drivers of Health Financial Resource Strain: Not on file Food Insecurity: Not on file Transportation Needs: Not on file Physical Activity: Not on file Stress: Not on file Social Connections: Not on file Intimate Partner Violence: Not on file Housing Stability: Not on file OBJECTIVE LE EXAM: DERM: Elongated thick yellow crumbly nails digits 1 through 10. Diminished hair growth b/l feet. VASC: Positive palpable pedal pulses bilaterally NEURO: Gross sensation intact to bilateral feet ORTHO: Positive pain on palpation to toenails of the left 1,2,3,4,5 toes and right 1,2,3,4,5 toes Greatly diminished range of motion subtalar joint bilaterally suggestive of possible fibrosis or clubfoot deformity in the past Range of motion of ankle joint less than 10 degrees dorsiflexion Digital deformity of the left hallux and left 2nd digit ASSESSMENT 1. Pain due to onychomycosis of toenails of both feet PLAN Discussed proper foot care with patient today. Debride nails in length and thickness digits 1 through 10 Beck Francis DPM documented in this encounterSaint John's Regional Health CenterZlpjngzwcv71-52-0838 Radiology Diagnostic study [facility] [place] [address] [place] [address] CT Scan Report Signed Patient: Binta Eldridge MR#: [id number] : 1960 Acct:[id number] Age/Sex: 64 / F ADM Date: 5 Loc: [facility][NOTE 3] Room: Type: [facility] CLI Attending Dr: Michael Krueger MD Copies to: Michael Krueger MD~ Ordering Provider: Michael Krueger MD Date of Service: 10/04/24 CT/CT shoulder LT wo con: [id number] - Anterior dislocation of left humerus, initial ... CT left shoulder WITHOUT CONTRAST WITH 3D RECONSTRUCTIONS: CLINICAL HISTORY: History of anterior dislocation. COMPARISON: Left shoulder 10/03/2024 TECHNIQUE: Spiral axial unenhanced images were obtained through the left shoulder. Sagittal, coronal and 3D volume-rendered reconstructions were also reviewed. This CT exam was performed using one ormore following dose reductiontechniques: Automated exposure control, adjustment of the mA and/or kV accordingto patient size, or use of iterative reconstruction technique. FINDINGS: Mild degenerative changes involving the AC and glenohumeral joints. No acute fracture is seen. No bony Bankart lesion is present. No Hill-Sachs deformity is seen. Inflammatory changes and small joint effusion/hemarthrosis is seen involving the glenohumeral joint. Likely tear involving thesubscapularis. Supraspinatus demonstrates atrophy. No axillary lymphadenopathy. Visualized lung parenchyma demonstrates no acute process. Visualized rib cage appears intact. CT/CT shoulder LT wo con IMPRESSION: NO ACUTE BONY PROCESS. DEGENERATIVE CHANGES INVOLVING THE AC AND GLENOHUMERAL JOINTS. INFLAMMATORY CHANGES ARE NOTED INVOLVING THE GLENOHUMERAL JOINT WITH LIKELY JOINT EFFUSION /HEMARTHROSIS PRESENT. THERE IS ALSO LIKELY A TEAR INVOLVING THESUBSCAPULARIS. THIS CAN BE CONFIRMED BY MRI. Impression dictated by: Sabas Rocha Jr., D.O.10/04/2024 12:30 PM Dictation Location: [place] [id number] Transcribed By: [facility] 10/04/24 1230 Dictated By: Sabas Rocha Jr, DO 10/04/24 1224 Signed By: 10/04/24 1230 [facility]04-15-2025 Evaluation note* Diagnosis Onset Date Resolution Status Admit Date Anterior dislocation of left shoulder acuteApril 2024 9:21am [facility] Work Phone: 1(884) 583-585304-15-2025 Evaluation note* Diagnosis Onset Date Resolution Status Admit Date Anterior dislocation of left shoulder acuteApril 2024 9:21amAnterior dislocation of left shoulderacuteApril 2024 8:52amAnterior dislocation of left shoulderacuteApril 2024 1:24pmHx of goutacuteApril 2024 1:24pmHypertensionacuteApril 2024 1:24pmMCI (mild cognitive impairment)acuteApril 2024 1:24pmPeripheral artery diseaseacuteApril 2024 1:24pmScalp ulcerationacuteApril 2024 1:24pmTachycardiaacuteApril 2024 1:24pm [facility] Work Phone: 1(517) 787-273604-15-2025 Evaluation note* Diagnosis Onset Date Resolution Status Admit Date Anterior dislocation of left shoulder acuteApril 2024 9:21amAnterior dislocation of left shoulderacuteApril 2024 8:52amAnterior dislocation of left shoulderacuteApril 2024 1:24pmHx of goutacuteApril 2024 1:24pmHypertensionacuteApril 2024 1:24pmMCI (mild cognitive impairment)acuteApril 2024 1:24pmPeripheral artery diseaseacuteApril 2024 1:24pmScalp ulcerationacuteApril 2024 1:24pmTachycardiaacuteApril 2024 1:24pmAnterior dislocation of left shoulderacuteMay 2024 9:02am [facility] Work Phone: 1(348) 885-363504-15-2025 Evaluation note* Diagnosis Onset Date Resolution Status Admit Date Anterior dislocation of left shoulder acuteApril 2024 9:21amAnterior dislocation of left shoulderacuteApril 2024 8:52amAnterior dislocation of left shoulderacuteApril 2024 1:24pmHx of goutacuteApril 2024 1:24pmHypertensionacuteApril 2024 1:24pmMCI (mild cognitive impairment)acuteApril 2024 1:24pmPeripheral artery diseaseacuteApril 2024 1:24pmScalp ulcerationacuteApril 2024 1:24pmTachycardiaacuteApril 2024 1:24pmAnterior dislocation of left shoulderacuteMay 2024 9:02amAnterior dislocation of left shoulderacuteMay 2024 8:47am [facility] Work Phone: 1(524) 932-447604-15-2025 Evaluation note* Diagnosis Onset Date Resolution Status Admit Date Anterior dislocation of left shoulder acuteApril 2024 9:21amAnterior dislocation of left shoulderacuteApril 2024 8:52amAnterior dislocation of left shoulderacuteApril 2024 1:24pmHx of goutacuteApril 2024 1:24pmHypertensionacuteApril 2024 1:24pmMCI (mild cognitive impairment)acuteApril 2024 1:24pmPeripheral artery diseaseacuteApril 2024 1:24pmScalp ulcerationacuteApril 2024 1:24pmTachycardiaacuteApril 2024 1:24pmAnterior dislocation of left shoulderacuteMay 2024 9:02amAnterior dislocation of left shoulderacuteMay 2024 8:47amAnterior dislocation of left shoulderacuteJuly 2024 8:52am [facility] Work Phone: 1(650) 660-873202-26-2025 History of Present illness Narrative* Beck Francis DPM - 08/16/2024 1:30 PM EST Patient: Binta Eldridge : 1960 PCP: Hilton Juarez MD SUBJECTIVE This is a 64 y.o. female that presents today with a CC of elongated, thick nails. Pt states nails have been elongated and thick for many years and cause pain with ambulation in shoegear. Pt has tried previous treatment with minimal relief. Pt presents today for nail care and treatment. Patient is hard of hearing and poor historian Allergies: No Known Allergies Past Medical History: Past Medical History: Diagnosis Date [place] [facility] [place] (hard of hearing) Hypertension (CMS/HCC) OM (onychomycosis) Medications: Current Outpatient Medications: allopurinol (Zyloprim) 100 MG tablet, , Disp: , Rfl: lisinopril 10 MG tablet, , Disp: , Rfl: Social History: Social History Socioeconomic History Marital status: Unknown Spouse name: Not on file Number of children: Not on file Years of education: Not on file Highest education level: Not on file Occupational History Not on file Tobacco Use Smoking status: Never Passive exposure: Never Smokeless tobacco: Never Vaping Use Vaping status: Unknown Substance and Sexual Activity Alcohol use: Never Drug use: Never Sexual activity: Defer Partners: Decline to Answer Other Topics Concern Not on file Social History Narrative Not on file Social Drivers of Health Financial Resource Strain: Not on file Food Insecurity: Not on file Transportation Needs: Not on file Physical Activity: Not on file Stress: Not on file Social Connections: Not on file Intimate Partner Violence: Not on file Housing Stability: Not on file OBJECTIVE LE EXAM: DERM: Elongated thick yellow crumbly nails digits 1 through 10. Diminished hair growth b/l feet. VASC: Positive palpable pedal pulses bilaterally NEURO: Gross sensation intact to bilateral feet ORTHO: Positive pain on palpation to toenails of the left 1,2,3,4,5 toes and right 1,2,3,4,5 toes Greatly diminished range of motion subtalar joint bilaterally suggestive of possible fibrosis or clubfoot deformity in the past Range of motion of ankle joint less than 10 degrees dorsiflexion Digital deformity of the left hallux and left 2nd digit ASSESSMENT 1. Pain due to onychomycosis of toenails of both feet 2. Acquired deformity of left toe PLAN Discussed proper foot care with patient today. Debride nails in length and thickness digits 1 through 10 Beck Francis DPM documented in this encounterSaint John's [facility] Health [id number] History of Present illness Narrative* Beck Francis DPM - 06/07/2024 1:50 PM EST Patient: Binta Eldridge : 1960 PCP: Hilton Juarez MD SUBJECTIVE This is a 64 y.o. female that presents today with a CC of elongated, thick nails. Pt states nails have been elongated and thick for many years and cause pain with ambulation in shoegear. Pt has tried previous treatment with minimal relief. Pt presents today for nail care and treatment. Patient is hard of hearing and poor historian Allergies: No Known Allergies Past Medical History: Past Medical History: Diagnosis Date [place] (hard of hearing) Hypertension (CMS/HCC) OM (onychomycosis) Medications: Current Outpatient Medications: allopurinol (Zyloprim) 100 MG tablet, , Disp: , Rfl: lisinopril 10 MG tablet, , Disp: , Rfl: Social History: Social History Socioeconomic History Marital status: Unknown Spouse name: Not on file Number of children: Not on file Years of education: Not on file Highest education level: Not on file Occupational History Not on file Tobacco Use Smoking status: Never Passive exposure: Never Smokeless tobacco: Never Vaping Use Vaping status: Unknown Substance and Sexual Activity Alcohol use: Never Drug use: Never Sexual activity: Defer Partners: Decline to Answer Other Topics Concern Not on file Social History Narrative Not on file Social Drivers of Health Financial Resource Strain: Not on file Food Insecurity: Not on file Transportation Needs: Not on file Physical Activity: Not on file Stress: Not on file Social Connections: Not on file Intimate Partner Violence: Not on file Housing Stability: Not on file OBJECTIVE LE EXAM: DERM: Elongated thick yellow crumbly nails digits 1 through 10. Diminished hair growth b/l feet. VASC: Positive palpable pedal pulses bilaterally NEURO: Gross sensation intact to bilateral feet ORTHO: Positive pain on palpation to nails 1 through 10 Greatly diminished range of motion subtalar joint bilaterally suggestive of possible fibrosis or clubfoot deformity in the past Range of motion of ankle joint less than 10 degrees dorsiflexion Digital deformity of the left hallux and left 2nd digit ASSESSMENT 1. Pain due to onychomycosis of toenails of both feet PLAN Discussed proper foot care with patient today. Debride nails in length and thickness digits 1 through 10 Beck Francis DPM documented in this encounterSaint John's Regional Health [id number] Evaluation note* Diagnosis Onset Date Resolution Status Admit Date Hx of gout acuteOctober 2023 1:16pmHypertensionacuteOctober 2023 1:16pmMCI (mild cognitive impairment)acuteOct2023 1:16pmMedicare annual wellness visit, subsequentacuteOctober 2023 1:16pmPeripheral artery diseaseacute October 2023 1:16pmScalp ulcerationacuteOct2023 1:16pmScreening mammogram for breast canceracuteMarch 22, 2024 1:16pm [facility] Work Phone: 1([phone]) 476-602509-25-2024 History of Present illness Narrative* Beck Francis DPM - 03/15/2024 1:30 PM EDT Patient: Binta Eldridge : 1960 PCP: Hilton Juarez MD SUBJECTIVE This is a 63 y.o. female that presents today with a CC of elongated, thick nails. Pt states nails have been elongated and thick for many years and cause pain with ambulation in shoegear. Pt has tried previous treatment with minimal relief. Pt presents today for nail care and treatment. Patient is hard of hearing and poor historian Allergies: No Known Allergies Past Medical History: Past Medical History: Diagnosis Date [place] (hard of hearing) Hypertension (CMS/HCC) OM (onychomycosis) Medications: Current Outpatient Medications: allopurinol (Zyloprim) 100 MG tablet, , Disp: , Rfl: lisinopril 10 MG tablet, , Disp: , Rfl: Social History: Social History Socioeconomic History Marital status: Unknown Spouse name: Not on file Number of children: Not on file Years of education: Not on file Highest education level: Not on file Occupational History Not on file Tobacco Use Smoking status: Never Passive exposure: Never Smokeless tobacco: Never Vaping Use Vaping status: Unknown Substance and Sexual Activity Alcohol use: Never Drug use: Never Sexual activity: Defer Partners: Decline to Answer Other Topics Concern Not on file Social History Narrative Not on file Social Determinants of Health Financial Resource Strain: Not on file Food Insecurity: Not on file Transportation Needs: Not on file Physical Activity: Not on file Stress: Not on file Social Connections: Not on file Intimate Partner Violence: Not on file Housing Stability: Not on file OBJECTIVE LE EXAM: DERM: Elongated thick yellow crumbly nails digits 1 through 10. Diminished hair growth b/l feet. VASC: Positive palpable pedal pulses bilaterally NEURO: Gross sensation intact to bilateral feet ORTHO: Positive pain on palpation to nails 1 through 10 Greatly diminished range of motion subtalar joint bilaterally suggestive of possible fibrosis or clubfoot deformity in the past Range of motion of ankle joint less than 10 degrees dorsiflexion Digital deformity of the left hallux and left 2nd digit ASSESSMENT 1. Onychomycosis 2. Toe pain, bilateral 3. Acquired deformity of left toe PLAN Discussed proper foot care with patient today. Debride nails in length and thickness digits 1 through 10 Beck Francis DPM documented in this encounterSaint John's Regional Health [id number] Evaluation note* Encounter Date Diagnosis Assessment Notes Treatment Notes Treatment Clinical Notes Apr, Hyperuricemia (ICD-10 - E79.0) [place] [employer] Other 03-23-2023 Evaluation note* Encounter Date Diagnosis Assessment Notes Treatment Notes Treatment Clinical Notes Aug, Cellulitis of finger of left funez d (ICD-10 - L03.012) Aug,cute idiopathic gout of left hand (ICD-10 - M10.042) [employer] Other 02-20-2023 Evaluation note* Encounter Date Diagnosis Assessment Notes Treatment Notes Treatment Clinical Notes Jul, Acute idiopathic gout of right h and (ICD-10 - M10.041) [employer] Other Evaluation noteNo InformationNort [employer] Other Evaluation noteNo assessment information available [facility] Work Phone: Evaluation note* Diagnosis Onset Date Resolution Status Hx of gout acuteHypertensionacuteMCI (mild cognitive impairment)acuteMedicare annual wellness visit, subsequentacutePeripheral artery diseaseacuteScalp ulceration acuteScreening mammogram for breast canceracute [facility] Work Phone: Evaluation note* Diagnosis Pain due to onychomycosis of toenails of both feet- Primary documented in this encounter [facility] HealthcareEvaluation note* Diagnosis Onychomycosis- Primary Dermatophytosis of nail Toe pain, bilateral Acquired deformity of left toe documented in this encounter [facility] HealthcareEvaluation note* Diagnosis Pain due to onychomycosis of toenails of both feet- Primary Acquired deformity of left toe documented in this encounter [facility] HealthcareEvaluation note* Diagnosis Onset Date Resolution Status Admit Date Anterior dislocation of left shoulder acuteApril 2024 9:21am [facility] Work Phone: History general Narrative - Reported* Type Description Date Medical History Paronychia of finger of right melchor nd Medical HistoryTophaceous goutMedical HistoryHyperlipidemia type IIMedical HistoryNephrolithiasisMedical HistoryHypertensive renal disease, stage 1 through stage 4 or unspecified chronic kidney diseaseMedical HistoryThoracogenic scoliosis, thoracolumbar regionMedical HistoryMild intellectual disabilities Medical HistoryPlaque psoriasisMedical HistorySensorineural hearing loss (SNHL) of both ears [employer] [facility] [employer] Other History general Narrative - Reported* Type Description Date Medical History Paronychia of finger of right melchor nd Medical HistoryTophaceous goutMedical HistoryHyperlipidemia type IIMedical HistoryNephrolithiasisMedical HistoryHypertensive renal disease, stage 1 through stage 4 or unspecified chronic kidney diseaseMedical HistoryThoracogenic scoliosis, thoracolumbar regionMedical HistoryMild intellectual disabilities Medical HistoryPlaque psoriasisMedical HistorySensorineural hearing loss (SNHL) of both earsSurgical HistoryNo know Surgical history [facility] [employer] Other Reason for referral (narrative)No reason for referral information availableChildren'S [facility] Work Phone: Summary Purpose Family History No Family History Records FoundNo Family History Records FoundNo Family History Records Found Advance Directives Advance Directive Response Recorded Date/ Time Advance Directives Yes December 07 5:41pm Advance Directive Response Recorded Date/ Time Advance Directives Yes December 07 4:41pm Advance Directive Response Recorded Date/ Time Advance Directives Yes January 25 025 2:40pm Chief Complaint and Reason for Visit Chief Complaint L ankle injury Chief Complaint 5 month follow up Reason for Visit Hx of gout Hypertension MCI (mild cognitive impairment) Medicare annual wellness visit, subsequent Peripheral artery disease Scalp ulceration Screening mammogram for breast cancer Chief Complaint Admit Date 5 month follow up March 22, 2024 1: 16pm Reason for Visit Admit Date Hx of gout March 22, 2024 1: 16pm Hypertension March 22, 2024 1: 16pm MCI (mild cognitive impairment) March 22, 2024 1:16pm Medicare annual wellness visit, subseque nt March 22, 2024 1:16pm Peripheral artery disease March 22 1:16pm Scalp ulceration March 22, 2024 1: 16pm Screening mammogram for breast cancer Oc tober 2023 1:16pm Chief Complaint Admit Date L Arm Pain September 30, 2024 6:3 8am Chief Complaint Admit Date L Arm Pain September 30, 2024 6:3 8am Amb Documentation October 02, 2024 11: 14am ER [facility] LT SHOULDER DISLOCATION AND REDU CTION WX October 03, 2024 9:21am S43.015A - Anterior dislocation of left humerus, i October 03, 2024 9:42am Reason for Visit Admit Date Anterior dislocation of left shoulder Ap 2024 9:21am Chief Complaint Admit Date L Arm Pain September 30, 2024 6:3 8am Amb Documentation October 02, 2024 11: 14am ER [facility] LT SHOULDER DISLOCATION AND REDU CTION WX October 03, 2024 9:21am S43.015A - Anterior dislocation of left humerus, i October 03, 2024 9:42am S43.015A October 04, 2024 11: 58am Chief Complaint Admit Date L Arm Pain September 30, 2024 6:3 8am Amb Documentation October 02, 2024 11: 14am ER [facility] LT SHOULDER DISLOCATION AND REDU CTION WX October 03, 2024 9:21am S43.015A - Anterior dislocation of left humerus, i October 03, 2024 9:42am S43.015A October 04, 2024 11: 58am MRI RESULTS October 05, 2024 8:5 2am 6 month f/u-HIGH RISK October 18, 2024 1 :24pm Reason for Visit Admit Date Anterior dislocation of left shoulder Ap ril 2024 9:21am Anterior dislocation of left shoulder Ap ril 2024 8:52am Anterior dislocation of left shoulder Ap ril 2024 1:24pm Hx of gout October 18, 2024 1:2 4pm Hypertension October 18, 2024 1:2 4pm MCI (mild cognitive impairment) October 182024 1:24pm Peripheral artery disease October 18 1:24pm Scalp ulceration October 18, 2024 1:2 4pm Tachycardia October 18, 2024 1:2 4pm Chief Complaint Admit Date L Arm Pain September 30, 2024 6:3 8am Amb Documentation October 02, 2024 11: 14am ER [facility] LT SHOULDER DISLOCATION AND REDU CTION WX October 03, 2024 9:21am S43.015A - Anterior dislocation of left humerus, i October 03, 2024 9:42am S43.015A October 04, 2024 11: 58am MRI RESULTS October 05, 2024 8:5 2am 6 month f/u-HIGH RISK October 18, 2024 1 :24pm 3 WEEKS October 26, 2024 9:02am Reason for Visit Admit Date Anterior dislocation of left shoulder Ap ril 2024 9:21am Anterior dislocation of left shoulder Ap ril 2024 8:52am Anterior dislocation of left shoulder Ap ril 2024 1:24pm Hx of gout October 18, 2024 1:2 4pm Hypertension October 18, 2024 1:2 4pm MCI (mild cognitive impairment) October 182024 1:24pm Peripheral artery disease October 18 1:24pm Scalp ulceration October 18, 2024 1:2 4pm Tachycardia October 18, 2024 1:2 4pm Anterior dislocation of left shoulder Ma y 2024 9:02am Chief Complaint Admit Date L Arm Pain September 30, 2024 6:3 8am Amb Documentation October 02, 2024 11: 14am ER [facility] LT SHOULDER DISLOCATION AND REDU CTION WX October 03, 2024 9:21am S43.015A - Anterior dislocation of left humerus, i October 03, 2024 9:42am S43.015A October 04, 2024 11: 58am MRI RESULTS October 05, 2024 8:5 2am 6 month f/u-HIGH RISK October 18, 2024 1 :24pm 3 WEEKS October 26, 2024 9:02am 3 WEEKS November 14, 2024 8:47a m Reason for Visit Admit Date Anterior dislocation of left shoulder Ap ril 2024 9:21am Anterior dislocation of left shoulder Ap ril 2024 8:52am Anterior dislocation of left shoulder Ap ril 2024 1:24pm Hx of gout October 18, 2024 1:2 4pm Hypertension October 18, 2024 1:2 4pm MCI (mild cognitive impairment) October 182024 1:24pm Peripheral artery disease October 18 1:24pm Scalp ulceration October 18, 2024 1:2 4pm Tachycardia October 18, 2024 1:2 4pm Anterior dislocation of left shoulder Ma y 2024 9:02am Anterior dislocation of left shoulder Ma y 2024 8:47am Chief Complaint Admit Date L Arm Pain September 30, 2024 6:3 8am Amb Documentation October 02, 2024 11: 14am ER [facility] LT SHOULDER DISLOCATION AND REDU CTION WX October 03, 2024 9:21am S43.015A - Anterior dislocation of left humerus, i October 03, 2024 9:42am S43.015A October 04, 2024 11: 58am MRI RESULTS October 05, 2024 8:5 2am 6 month f/u-HIGH RISK October 18, 2024 1 :24pm 3 WEEKS October 26, 2024 9:02am 3 WEEKS November 14, 2024 8:47a m L Dislocated Shoulder December 20, 2024 8:4 5am 6 WEEKS December 26, 2024 8:52a m Reason for Visit Admit Date Anterior dislocation of left shoulder Ap ril 2024 9:21am Anterior dislocation of left shoulder Ap ril 2024 8:52am Anterior dislocation of left shoulder Ap ril 2024 1:24pm Hx of gout October 18, 2024 1:2 4pm Hypertension October 18, 2024 1:2 4pm MCI (mild cognitive impairment) October 182024 1:24pm Peripheral artery disease October 18 1:24pm Scalp ulceration October 18, 2024 1:2 4pm Tachycardia October 18, 2024 1:2 4pm Anterior dislocation of left shoulder Ma y 2024 9:02am Anterior dislocation of left shoulder Ma y 2024 8:47am Anterior dislocation of left shoulder Ju ly 2024 8:52am Chief Complaint Admit Date 6 WEEKS December 26, 2024 8:52a m Reason for Visit Admit Date Anterior dislocation of left shoulder Ju ly 2024 8:52am Chief Complaint Admit Date Medicare Wellness/LVM 02/13 KM April 112024 1:46pm Reason for [...] for breast cancer Oc tober 2024 1:46pm Additional Source Comments INFORMATION SOURCE (unrecogn ized section and content) DATE CREATED AUTHOR 05/04/2022 [facility] DATE CREATED AUTHOR AUTHOR'S ORGANIZ ATION 11/15/2024 [facility] DATE CREATED AUTHOR AUTHOR'S ORGANIZ ATION 04/08/[address] [facility] REASON FOR VISIT (unrecogniz ed section and content) ReasonCommentsToenail CareNon dm nail care Care Teams (unrecognized sec tion and content) Team Status: Active Member Role Status Dates Hilton Juarez DO Primary Care Provider Active Team Status: Inactive Member Role Status Dates Hilton Juarez DO Primary Care Provider Active Mila Mckoy ProviderActive Team Status: Inactive Member Role Status Dates Hilton Juarez DO Primary Care Provide r, Attending Provider Active Start: March 22, 2024 End: March 22, 2024 Team Status: Inactive Member Role Status Dates Robyn Calderón MD Attending Provider Active Start: May 03, 2024 End: May 03, 2024Team MemberRelationshipSpecialtyStart DateEnd Date Hilton Juarez MD [address] [facility] [place] [phone] PCP - [facility]Hop[facility]01/05/24Team MemberRelationshipSpecialtyStart Date End Date Hilton Juarez MD [address] [facility] [place] [phone] PCP - [facility]Hop[facility]01/05/24Team MemberRelationshipSpecialtyStart Date End Date Hilton Juarez MD [address] [facility] [place] [phone] PCP - [facility]Hop[facility]01/05/24Team MemberRelationshipSpecialtyStart Date End Date Hilton Juarez MD [address] [facility] [place] [address] PCP - GeneralInternal Medicine01/05/24Team MemberRelationshipSpecialtyStart Date End Date Hilton Juarez MD [address] [facility] [place] [phone] PCP - [facility]Hop[facility]01/05/24 Team Status: Inactive Member Role Status Dates Hilton Juarez DO Primary Care Provider Active Start: September 30, 2024 End: September 30, 2024Pafelipa Dawn DOEmergenkailash ProviderActiveStart: September 30, 2024 End: September 30, 2024 Team Status: Active Member Role Status Dates Hilton Juarez DO Primary Care Provider Active Start: October 02, 2024 Sabi Lewis , CMAAttending ProviderActiveStart: October 02, 2024 Team Status: Inactive Member Role Status Dates Hilton Juarez DO Primary Care Provider Active Start: October 03, 2024 End: October 03omas Olehero , MDAttending ProviderActiveStart: October 03, 2024 End: October 03, 2024 Team Status: Active Member Role Status Susannah Krueger MD Attending Provider Active Star t: October 03, 2024 Uriel Monzon Care ProviderActiveStart: October 03, 2024 Team Status: Inactive Member Role Status Dates Michael Krueger MD Attending Provider Active Star t: October 03, 2024 End: October 03Uriel Wick Care ProviderActiveStart: October 03, 2024 End: October 03, 2024 Team Status: Inactive Member Role Status Dates Hilton Juarez DO Primary Care Provider Active Start: October 04, 2024 End: October 04omas Olehero , ACEttending ProviderActiveStart: October 04, 2024 End: October 04, 2024 Team Status: Inactive Member Role Status Dates Hilton Juarez DO Primary Care Provider Active Start: October 05, 2024 End: October 05omas OleACE monahanttending ProviderActiveStart: October 05, 2024 End: October 05, 2024 Team Status: Inactive Member Role Status Susannah Juarez DO Primary Care Provide r, Attending Provider Active Start: October 18, 2024 End: October 18, 2024 Team Status: Active Member Role Status Susannah Juarez DO Primary Care Provide r, Attending Provider Active Start: October 19, 2024 Team Status: Inactive Member Role Status Susannah Juarez DO Primary Care Provider Active Start: October 26, 2024 End: October 26omas Olehero , ACEttending ProviderActiveStart: October 26, 2024 End: October 26, 2024Team MemberRelationshipSpecialtyStart DateEnd Date Hilton Juarez DO [address] [place] [address] PCP - GeneralInternal Medicine11/08/24Team MemberRelationshipSpecialtyStart Date End Date Hilton Juarez DO [address] [place] [address] PCP - [facility] [place]11/08/24 Team Status: Inactive Member Role Status Dates Hilton Juarez DO Primary Care Provider Active Start: November 14, 2024 End: November 14, 2024Thomas Olexa , MDAttending ProviderActiveStart: November 14, 2024 End: November 14, 2024 Team Status: Inactive Member Role Status Dates Hilton Juarez DO Primary Care Provider Active Start: October 18, 2024 End: October 18enanalia Juarez DOAttending ProviderActiveStart: October 18, 2024 End: October 18, 2024 Team Status: Active Member Role Status Dates Hilton Juarez DO Primary Care Provider Active Start: October 19, 2024 Deborah Monzon ProviderActiveStart: October 19, 2024 Team Status: Active Member Role Status Dates Hilton Juarez DO Primary Care Provider Active Start: December 20, 2024 Michael Olexa , MDAttending ProviderActiveStart: December 20, 2024 Team Status: Inactive Member Role Status Dates Hilton Juarez DO Primary Care Provider Active Start: December 26, 2024 End: December 26, 2024Thomas Olexa , MDAttending ProviderActiveStart: December 26, 2024 End: December 26, 2024 Team Status: Active Member Role/Relationship Status Dates Hilton Juarez DO Primary Care Provider Active Team Status: Inactive Member Role/Relationship Status Dates Hilton Juarez DO Primary Care Provider Active Start: April 11, 2025 End: April 11enanalia Juarez , DOAttending ProviderActiveStart: April 11, 2025 End: April 11, 2025 Goals (unrecognized section and content) Goals may [...] BE BASED ON THE PRIMARY CLINICAL RECORDS. [facility] [employer] [facility]. provides no warranty or guarantee of the accuracy or completeness of information in this document.
[2025-04-25 09:49] LABS: Hematocrit 34.7 % (36.0-48.0); Hemoglobin 11.2 g/dL (12.0-16.0); Immature Granulocytes Abs Auto 0.01 10^3/uL (0.00-0.03); Immature Granulocytes Pct Auto 0.2 % (0.0-0.5); Lymphocytes Absolute Auto 1.3 10^3/uL (1.2-3.8); Mean Corpuscular HGB Conc 32.3 g/dL (29.9-35.2); Mean Corpuscular Hemoglobin 30.5 pg (26.7-34.0); Mean Corpuscular Volume 94.6 fL (81.0-99.0); Platelet Count 268 10^3/uL (150-450); Red Blood Count 3.67 10^6/uL (4.20-5.40); White Blood Count 5.7 10^3/uL (4.0-11.0)
[2025-04-25 10:31] LABS: Iron 61.0 ug/dL (50.0-170.0); Percent Iron Saturation 18.8 %; Total Iron Binding Capacity 324.0 ug/dL (250.0-450.0)
[2025-04-25 10:45] LABS: Alanine Aminotransferase 37 U/L (14-59); Albumin Globulin Ratio 1.0; Albumin Level 3.9 g/dL (3.4-5.0); Alkaline Phosphatase 155 U/L (46-116); Anion Gap 15.8; Aspartate Amino Transferase 32 U/L (15-37); Blood Urea Nitrogen 24.0 mg/dL (7.0-18.0); Calcium 9.7 mg/dL (8.5-10.1); Carbon Dioxide 24.8 mmol/L (21.0-32.0); Chloride 104 mmol/L (98-107); Estimated GFR (African America 59 (>=60 mL/min/1.73m^2); Estimated GFR (Non-African Ame 49 (>=60 mL/min/1.73m^2); Globulin 3.9 g/dL; Glucose 98 mg/dL (74-106); Potassium 4.6 mmol/L (3.5-5.1); Sodium 140 mmol/L (136-145); Thyroid Stimulating Hormone 1.882 uIU/mL (0.358-3.740); Total Protein 7.8 g/dL (6.4-8.2)
[2025-04-25 10:48] LABS: Ferritin 211.0 ng/mL (8.0-252.0)
[2025-04-25 11:25] LABS: Folate 163.10 ng/mL (8.60-58.90)
[2025-04-26 07:12] LABS: Vitamin B12 413 pg/mL (232-1245)
== END 2025-04-25 09:26 | disposition home or self-care (01) ==
LOC: LAB 09:27
PROVIDERS: PCP Internal Medicine; Visit Provider Internal Medicine
DX: D64.9 Anemia, unspecified (principal); I10 Essential (primary) hypertension; Z87.39 Personal history of other diseases of the musculoskeletal system and connective tissue; R53.83 Other fatigue
CPT/HCPCS: 36415; 80053; 82607; 82728; 82746; 83540; 83550; 84443; 85025